=== PATIENT | female | born 1970 | race Caucasian/White ===

== ENCOUNTER 2020-05-28 10:21 | Outpatient (REF) | payer MEDICARE, OTHER, SELFPAY ==
[2020-05-28 13:28] LABS: Hemoglobin 13.1 g/dl (12.0-16.0); Mean Corpuscular HGB Conc 32.8 g/dl (31.0-35.0); Mean Corpuscular Hemoglobin 27.6 pg (27.0-33.0); Mean Corpuscular Volume 84.4 fL (80-98); Mean Platelet Volume 9.4 fL (9.4-12.3); Platelet Count 353 X10*3/uL (160-400); Red Blood Count 4.74 X10*6/uL (4.20-5.50); Red Cell Distribution Width 14.2 % (11.0-16.0); White Blood Count 9.1 X10*3/uL (4.8-10.8)
[2020-05-28 14:10] LABS: Iron 92 mcg/dL (30-160); Percent Iron Saturation 21 % (15-50); Total Iron Binding Capacity 436 mcg/dL (228-428); Unsaturated Iron Binding 344 ug/dL
[2020-05-28 14:27] LABS: Vitamin B12 883 pg/mL (200-900)
== END 2020-05-28 10:22 | disposition home or self-care (01) ==
LOC: HO.WFDLDS 10:21
PROVIDERS: Visit Provider Hospitalist
DX: D50.0 Iron deficiency anemia secondary to blood loss (chronic) (principal)
CPT/HCPCS: 36415; 82607; 82746; 83540; 85027

== ENCOUNTER → 2020-05-29 14:40 | Outpatient (BNVA) | payer MEDICARE, MEDICAID, SELFPAY | PROVIDERS: PCP Family Medicine; Visit Provider Anesthesiology | DX: M47.816 Spondylosis without myelopathy or radiculopathy, lumbar region (principal); G89.4 Chronic pain syndrome; M79.7 Fibromyalgia | CPT/HCPCS: 99214 ==

== ENCOUNTER → 2020-06-03 09:10 | Outpatient (BNVA) | payer MEDICARE, OTHER, SELFPAY | PROVIDERS: PCP Family Medicine; Referring Provider Family Medicine; Visit Provider Internal Medicine Gastroenterology | DX: R10.11 Right upper quadrant pain (principal); K90.9 Intestinal malabsorption, unspecified; R61 Generalized hyperhidrosis; M79.7 Fibromyalgia; G89.4 Chronic pain syndrome; M47.816 Spondylosis without myelopathy or radiculopathy, lumbar region; D50.0 Iron deficiency anemia secondary to blood loss (chronic) | CPT/HCPCS: 99204 ==

== ENCOUNTER 2020-06-04 12:30 | Outpatient (REF) | payer MEDICARE, OTHER, SELFPAY ==
[2020-06-04 14:08] LABS: TSH reflex Free T4 0.87 mIU/mL (0.32-4.0)
[2020-06-05 04:38] LABS: HIV AB/AG Nonreactive (Nonreactive); HIV Num 1 0.07 S/CO (0.00-0.99)
[2020-06-05 19:12] LABS: Immunoglobulin G Subclass 1 422 mg/dL (382-929); Immunoglobulin G Subclass 2 506 mg/dL (241-700); Immunoglobulin G Subclass 3 22 mg/dL (22-178); Immunoglobulin G Subclass 4 19.7 mg/dL (4-86); Immunoglobulin G Total 1028 mg/dL (600-1640)
[2020-06-06 15:22] LABS: IgA 230 mg/dL (47-310); IgG 1056 mg/dL (600-1640); IgM 244 mg/dL (50-300)
[2020-06-06 16:07] LABS: Gliadin Deamidated IgA Ab 8 Units; Gliadin Deamidated IgG Ab 2 Units
[2020-06-06 16:31] LABS: Transglutaminase Ab IgG 2 U/mL; Transglutaminase IgA 1 U/mL
[2020-06-07 15:17] LABS: Anti Nuclear Antibody Pattern Nuclear, Homogeneous; Anti Nuclear Antibody Screen POSITIVE (NEGATIVE)
[2020-06-08 12:12] LABS: Endomysial IgA Antibody Negative (Negative)
[2020-06-10 18:17] LABS: Histamine Plasma <1.5 ng/mL (< OR = 1.8)
== END 2020-06-04 12:31 | disposition home or self-care (01) ==
LOC: HO.LAB 12:30
PROVIDERS: PCP Family Medicine; Visit Provider Internal Medicine Gastroenterology
DX: K90.9 Intestinal malabsorption, unspecified (principal); R10.11 Right upper quadrant pain; R61 Generalized hyperhidrosis; D50.0 Iron deficiency anemia secondary to blood loss (chronic); M79.7 Fibromyalgia; G89.4 Chronic pain syndrome; M47.816 Spondylosis without myelopathy or radiculopathy, lumbar region; R79.82 Elevated C-reactive protein (CRP)
CPT/HCPCS: 36415; 82784; 82785; 83088; 83516; 83520; 84443; 86003; 86038; 86039; 86140; 86255; 86256; 87389

== ENCOUNTER 2020-06-18 08:58 | Outpatient (REF) | payer MEDICARE, OTHER, SELFPAY ==
--- NOTE | 2020-06-18 09:11 | CT_ITS ---
EXAMINATION: CT ABDOMEN AND PELVIS WITH CONTRAST CLINICAL INFORMATION: Generalized hyperhydrosis COMPARISON: None TECHNIQUE: Multidetector volumetric images were obtained from the superior aspect of the liver through the pubic symphysis following administration 85 mL ofOmnipaque 350 intravenous contrast. Sagittal and coronal reformatted images were obtained on the technologist's workstation. Oral contrast: Yes This CT examination was performed using dose optimization techniques as appropriate, variously including the following: *Automated exposure control *Adjustment of mA and/or kV according to patient size (this includes techniques or standardized protocols for targeted exams where dose is matched to indication/reason for exam; i.e. extremities or head) *Use of iterative reconstruction technique DLP: 850 mGy-cm FINDINGS: LUNG BASES: The visualized lung bases are unremarkable. LIVER, GALLBLADDER, AND BILIARY TREE: The liver is normal in size, shape, and attenuation. No focal hepatic lesion or biliary ductal dilatation is present. The gallbladder has been removed. PANCREAS: Unremarkable. SPLEEN: Unremarkable. ADRENAL GLANDS: Unremarkable. KIDNEYS AND URETERS: The kidneys are normal in size, shape, and attenuation. No hydronephrosis, hydroureter, or calculi seen. No perinephric stranding. BLADDER: Not optimally distended. GASTROINTESTINAL TRACT: There are postoperative changes from gastric sleeve procedure. The small and large bowel are unremarkable. The appendix is unremarkable. ABDOMINAL WALL: No significant hernia is appreciated. LYMPH NODES: Normal. VASCULAR: Unremarkable. PELVIC VISCERA: There is an IUD in the uterus in satisfactory position. There is a 3 cm left adnexal cyst. OSSEOUS STRUCTURES: Unremarkable. CT/CT abdomen pelvis w con IMPRESSION: Postsurgical changes from gastric bypass and cholecystectomy. IUD in the uterus. 3 cm left adnexal cyst.
[2020-06-18] MEDS: iohexoL 350 MG/ML 100 ML INFUS..BTL 85 ML IV (12:05)
[2020-06-18] MEDS: Barium Sulfate Oral (Berry) 450 ML ORAL.SUSP 900 ML PO (12:07)
== END 2020-06-18 08:59 | disposition home or self-care (01) ==
LOC: HO.CT 08:58
PROVIDERS: PCP Family Medicine; Visit Provider Internal Medicine Gastroenterology
DX: R61 Generalized hyperhidrosis (principal)
CPT/HCPCS: 74177; Q9967

== ENCOUNTER 2020-06-20 12:40 | Outpatient (RCR) | payer MEDICARE, OTHER, SELFPAY ==
--- NOTE | 2020-06-20 15:06 | MHC.PT.EP ---
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 Assessment reveals mild impaired lumbar and hip ROM, decreased strength, impaired posture, mild gait deviations, hypomobility of thoracic spine, SI joint asymmetries, (+) sacral squish, (+) PAULINA, mild leg length discrepancy, impaired core stability and ability to activate anterior/posterior core musculature, increased tissue tension, and tenderness to palpation w/ PA mobs @ L4-5 and with sacral mobs. Pt will benefit from skilled PT services 2x/week for 5 weeks in order to reduce impairments, improve limitations, and implement a comprehensive HEP. Frequency and Duration: The patient will be seen 2x/week for 5 weeks, minimum of 30 minutes. Short Term Goals: -In 2 weeks, Pt to report less than 5/10 pain throughout treatment session. -In 3 weeks, Pt to demonstrate SI joint symmetry w/o need for MET. Upholstery Parts Sorter Goals: -In 5 weeks, Pt to demonstrate I w/ HEP. -In 5 weeks, Pt to improve JOSE by at least 8 points. -In 5 weeks, Pt to demonstrate absent tenderness to palpation. Treatment Plan: Modalities to reduce pain, spasms and effusion. Manual therapy to restore motion and function. Therapeutic exercise to improve strength and flexibility. Neuromuscular re-education for posture and balance. Therapeutic activities to return to functional activities of daily living. Please sign and return to therapist. Thank you for your referral.
--- NOTE | 2020-07-14 11:59 | MHC.PT.DC ---
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 She had to cancel a few visits awaiting COVID-19 results. She then elected to d/c herself from PT due to rise in pandemic. She will need a new script if she were to return for PT intervention. Electronically signed by: Anne Glasgow PT, DPT Please sign and return to therapist. Thank you for your referral.
== END 2020-07-14 12:00 | disposition other institution (70) ==
LOC: HO.PT 12:40
PROVIDERS: PCP Hospitalist; Visit Provider Anesthesiology
DX: M47.816 Spondylosis without myelopathy or radiculopathy, lumbar region (principal)
CPT/HCPCS: 97140; 97162

== ENCOUNTER 2020-06-23 15:26 | Outpatient (REF) | payer MEDICARE, OTHER, SELFPAY | END 2020-06-23 15:27 | disposition home or self-care (01) | LOC: HO.LNP 15:26 | PROVIDERS: Visit Provider Family Medicine | DX: Z20.828 Contact with and (suspected) exposure to other viral communicable diseases (principal) | CPT/HCPCS: U0003 ==

== ENCOUNTER 2020-07-01 07:32 | Outpatient (REF) | payer MEDICARE, OTHER, SELFPAY ==
[2020-07-01 09:02] LABS: Glucose Fasting 80 mg/dL (60-99)
[2020-07-01 09:04] LABS: Alanine Aminotransferase 19 U/L (0-31); Albumin Level 3.8 g/dL (3.5-5.0); Alkaline Phosphatase 74 U/L (39-117); Anion Gap 15 (12-20); Aspartate Amino Transferase 18 U/L (5-31); Bilirubin Total 0.5 mg/dL (0.0-1.0); Blood Urea Nitrogen 13 mg/dL (9-16); Calcium 8.8 mg/dL (8.4-10.2); Carbon Dioxide 22 mmol/L (22-29); Chloride 105 mmol/L (96-108); Cholesterol 198 mg/dL; Estimated Average Glucose 126 mg/dL; Estimated Glomerular Filt Rate > 60; Glucose Random 76 mg/dL (60-115); HDL Cholesterol 87 mg/dL; LDL Cholesterol Calculated 97 mg/dl; Potassium 4.2 mmol/l (3.3-5.1); Sodium 138 mmol/L (135-145); Total Protein 6.8 g/dL (6.5-8.0); Triglycerides 73 mg/dL
[2020-07-01 09:24] LABS: Free T4 (Free Thyroxine) 1.01 ng/dL (0.71-1.85); Thyroid Stimulating Hormone 0.63 uIU/mL (0.32-4.0)
[2020-07-01 10:46] LABS: Glucose 1 Hour 186 mg/dL
[2020-07-01 11:27] LABS: Glucose 2 Hour 43 mg/dL
[2020-07-02 08:57] LABS: Lutenizing Hormone 8.9 mIU/mL; Prolactin 13.5 ng/mL
[2020-07-02 09:16] LABS: LDL Cholesterol Direct 91 mg/dL (<100)
[2020-07-02 18:17] LABS: DHEA Sulfate 4 mcg/dL (19-231); Sex Hormone Binding Globulin 80 nmol/L (17-124)
[2020-07-02 22:32] LABS: Adrenocorticotropic Hormone 13 pg/mL (6-50)
[2020-07-05 14:37] LABS: Testosterone, Free 1.6 pg/mL (0.1-6.4); Testosterone, Total 20 ng/dL (2-45)
[2020-07-05 18:06] LABS: Androstenedione 47 ng/dL
[2020-07-05 19:17] LABS: Estradiol Ultra Sensitive 199 pg/mL
[2020-07-09 23:21] LABS: Estradiol Free 2.64 pg/mL; Estradiol, Ultrasensitive 188 pg/mL
[2020-07-14 20:09] LABS: Calprotectin, Fecal 102 mcg/g
[2020-07-15 17:12] LABS: Pancreatic Elastase-1 197 mcg/g
== END 2020-07-01 07:33 | disposition home or self-care (01) ==
LOC: HO.LAB 07:32
PROVIDERS: Internal Medicine Gastroenterology; PCP Family Medicine; Visit Provider Internal Medicine
DX: Z13.89 Encounter for screening for other disorder (principal)
CPT/HCPCS: 80053; 80061; 82024; 82157; 82533; 82627; 82670; 83001; 83002; 83036; 83498; 83721; 84146; 84270; 84402; 84403; 84439; 84443

== ENCOUNTER 2020-07-01 10:49 | Emergency (ER) | payer MEDICARE, OTHER, SELFPAY ==
[2020-07-01 11:02] VITALS: BP 141/81; PULSE 69; RESP 18; TEMP 36.6; O2SAT 99; BMI 46.9
--- NOTE | 2020-07-01 11:11 | ED_ITS ---
HPI - General Adult General Chief complaint: General Medical <TESS Guerra - Last Filed: 07/01/20 17:16> Stated complaint: ABNORMAL LABS, DIFF BREATHING <TESS Guerra - Last Filed: 07/01/20 17:16> Time Seen by Provider: 07/01/20 11:25 <TESS Guerra - Last Filed: 07/01/20 17:16> Source: patient <TESS Guerra - Last Filed: 07/01/20 17:16> Mode of arrival: ambulatory <TESS Guerra - Last Filed: 07/01/20 17:16> Limitations: no limitations <TESS Guerra Last Filed: 07/01/20 17:16> History of Present Illness HPI narrative: Patient presents to ED for multiple complaints. Patient states feeling diuretic and shortness of breath. Patient was had laboratory being checked for diabetes. Patient to get a 2 hour fasting glucose. patient does not have history of diabetes. Patient states she did not eat breakfast or drink water this morning. Patient then after having multiple blood draws she started feeling diaphoretic and shortness of breath.Patient states presently just feeling tired and short of breath. Patient denies any slurred speech, loss of vision, paralysis, swelling of lower extremities, numbness,/tingling, facial droop, or chest pain. <TESS Guerra - Last Filed: 07/01/20 17:16> Related Data Home medications: Home Medications Medication Instructions Recorded Confirmed albuterol sulfate 90 mcg/actuation 0 mcg INHALATION 05/28/20 06/25/20 aerosol inhaler bupropion HCl 100 mg tablet,12 hr mg PO 05/28/20 06/25/20 sustained-release cholecalciferol (vitamin D3) 125 0 mcg PO 05/28/20 06/25/20 mcg (5,000 unit) capsule hydroxyzine pamoate 50 mg capsule 50 mg PO Q6H PRN 05/28/20 06/25/20 ipratropium 0.5 mg-albuterol 3 mg 3 ml INHALATION QID 05/28/20 06/25/20 (2.5 mg base)/3 mL nebulization soln lorazepam 0.5 mg tablet 0.5 mg PO TID PRN 05/28/20 06/25/20 metoclopramide HCl 5 mg tablet 5 mg PO DAILY 05/28/20 06/25/20 pregabalin 25 mg capsule 25 mg PO TID 05/28/20 06/25/20 quetiapine 25 mg tablet 50 mg PO ONCE tab 05/28/20 06/25/20 sertraline 100 mg tablet 100 mg PO DAILY 05/28/20 06/25/20 sertraline 50 mg tablet 50 mg PO DAILY 05/28/20 06/25/20 simethicone 125 mg capsule 125 mg PO QID PRN 05/28/20 06/25/20 tizanidine 4 mg tablet 4 mg PO Q6H PRN 05/28/20 06/25/20 fluticasone propionate 230 INHALATION 05/29/20 06/25/20 mcg-salmeterol 21 mcg/actuation HFA inhaler pantoprazole 40 mg tablet,delayed 40 mg PO DAILY 05/29/20 06/25/20 release fluticasone propionate 230 2 puff INHALATION BID 06/09/20 06/25/20 mcg-salmeterol 21 mcg/actuation HFA inhaler Previous Rx's Medication Instructions Recorded fluticasone propionate 50 1 spray INTRANASAL BID 30 Days 06/23/20 mcg/actuation nasal #15.8 ml spray,suspension prednisone 10 mg tablet See Rx Instructions PO DAILY PRN 06/23/20 10 Days #28 tab zolpidem 10 mg tablet 10 mg PO BEDTIME PRN 30 Days #10 06/25/20 tab <TESS Guerra - Last Filed: 07/01/20 17:16> Allergies/adverse reactions: Allergies Allergy/AdvReac Type Severity Reaction Status Date / Time NSAIDS (Non-Steroidal Allergy Severe DIFFICULTY Verified 06/30/20 10:53 Anti-Inflamma BREATHING [Nsaids] amitriptyline Allergy Unknown undesired Verified 06/30/20 10:53 response naproxen Allergy Unknown shortness Verified 06/30/20 10:53 of breath risperidone [Risperdal] Allergy Unknown undesired Verified 06/30/20 10:53 response topiramate [Topamax] Allergy Unknown undesired Verified 06/30/20 10:53 response <TESS Guerra - Last Filed: 07/01/20 17:16> Review of Systems Review of Systems: Yes all other systems are reviewed and are negative <TESS Guerra - Last Filed: 07/01/20 17:16> Constitutional: Constitutional: Reports as per HPI, Reports no additional constitutional complaints and Reports fatigue <TESS Guerra - Last Filed: 07/01/20 17:16> Eyes: Eyes: Reports as per HPI and Reports no additional eye complaints <TESS Guerra - Last Filed: 07/01/20 17:16> ENT: Reports system reviewed and no additional complaints, except as documented and Reports as per HPI <TESS Guerra - Last Filed: 07/01/20 17:16> Cardiovascular: Cardiovascular: Reports as per HPI, Reports no additional cardiovascular complaints and Reports dyspnea <TESS Guerra - Last Filed: 07/01/20 17:16> Respiratory: Respiratory: Reports as per HPI, Reports no additional respiratory complaints and Reports dyspnea <TESS Guerra - Last Filed: 07/01/20 17:16> Gastrointestinal: Gastrointestinal: Reports as per HPI and Reports no additional gastrointestinal complaints <TESS Guerra Last Filed: 07/01/20 17:16> Genitourinary: Genitourinary: Reports no additional female genitourinary complaints and Reports as per HPI <TESS Guerra Last Filed: 07/01/20 17:16> Musculoskeletal: Musculoskeletal: Reports no additional musculoskeletal complaints and Reports as per HPI <TESS Guerra Last Filed: 07/01/20 17:16> Neurologic: Reports system reviewed and no additional complaints, except as documented and Reports as per HPI <TESS Guerra Last Filed: 07/01/20 17:16> Endocrine: Endocrine: Reports fatigue <TESS Guerra Last Filed: 07/01/20 17:16> PMF Past Medical History Medical History: Medical History (Updated 07/01/20 @ 17:14 by TESS Guerra) Anxiety Asthma Chronic pain syndrome Depression Fibromyalgia GERD (gastroesophageal reflux disease) Hirsutism Irregular menses PTSD (post-traumatic stress disorder) Spondylosis of lumbar region without myelopathy or radiculopathy Weight gain <TESS Guerra Last Filed: 07/01/20 17:16> Surgical History: Surgical History (Updated 07/01/20 @ 11:06 by Khadra Sanders) Gastric bypass status for obesity H/O shoulder surgery H/O wrist surgery History of colonoscopy History of hernia surgery Hx of cholecystectomy Hx of endoscopy <TESS Guerra - Last Filed: 07/01/20 17:16> Family History Family History: Family History Father No problems noted. Mother History of high blood pressure History of asthma <TESS Guerra - Last Filed: 07/01/20 17:16> Social History Social History: Social History Alcohol intake: never Smoking Status: Never smoker Use of substances other than those prescribed or required for medical reasons: No Advance Directives: No Advance Directives Information Provided: Yes <TESS Guerra - Last Filed: 07/01/20 17:16> Physical Exam Vital Signs: Vital Signs: Last Vital Signs Temp 98.0 F 07/01/20 16:00 Pulse 77 07/01/20 16:00 Resp 18 07/01/20 16:00 BP 131/62 07/01/20 16:00 Pulse Ox 100 07/01/20 16:00 Body Mass Index 46.9 <TESS Guerra - Last Filed: 07/01/20 17:16> Vital Signs: Last Vital Signs Temp 98.0 F 07/01/20 16:00 Pulse 77 07/01/20 16:00 Resp 18 07/01/20 16:00 BP 131/62 07/01/20 16:00 Pulse Ox 100 07/01/20 16:00 Body Mass Index 46.9 <Gato Galaviz MD - Last Filed: 07/01/20 16:09> Const: General: cooperative, healthy appearing, comfortable, no acute distress, well developed and alert <TESS Guerra - Last Filed: 07/01/20 17:16> HENMT: Head: Yes normal to inspection and Yes No palpable skull fracture present <TESS Guerra - Last Filed: 07/01/20 17:16> Eyes: General: appearance normal, both eyes and all related structures <TESS Guerra - Last Filed: 07/01/20 17:16> Visual Agee: normal visual agee by confrontation <TESS Guerra Last Filed: 07/01/20 17:16> Neck: Neck: Yes normal visual inspection, Yes full ROM, Yes no lymphadenopathy, Yes no meningeal signs, Yes trachea midline and No tender <TESS Guerra Last Filed: 07/01/20 17:16> Chest: Chest palpation & inspection: normal inspection of the chest, normal palpation of entire chest wall and no localized rib tenderness <Soham Torre [employer] [facility] Last Filed: 07/01/20 17:16> Resp: Effort & Inspection: normal respiratory effort, able to speak in complete sentences and respiratory effort not decreased <TESS Guerra Last Filed: 07/01/20 17:16> Cardio: Jugular venous distension: no JVD <TESS Guerra Last Filed: 07/01/20 17:16> Heart sounds: S1 normal heart sound present and S2 normal heart sound present <TESS Guerra Last Filed: 07/01/20 17:16> GI: Inspection: Yes normal to inspection and No abdominal wall ecchymosis <TESS Guerra Last Filed: 07/01/20 17:16> Palpation (GI): Soft to palpation, not firm, nontender, no guarding and not rigid <TESS Guerra Last Filed: 07/01/20 17:16> : General: No CVA tenderness and Yes no CVA tenderness <TESS Guerra Last Filed: 07/01/20 17:16> Back/Spine/Pelvis: Back: no CVA tenderness, No CVA tenderness and No back tenderness <TESS Guerra Last Filed: 07/01/20 17:16> Skin: General skin exam: no rashes or lesions noted <TESS Guerra Last Filed: 07/01/20 17:16> Neuro: Other: negative for any facial droop. Negative pronator drift. Negative Romberg. Motor, and strength of all extremities are intact and equal. <TESS Guerra Last Filed: 07/01/20 17:16> General: gait normal, no meningeal signs and CN's II-XI intact bilaterally <TESS Guerra - Last Filed: 07/01/20 17:16> Cranial nerves: Yes CN's II-XII intact bilaterally <TESS Guerra - Last Filed: 07/01/20 17:16> Extrem: General: Yes normal to inspection and Yes full ROM <TESS Guerra - Last Filed: 07/01/20 17:16> Psych: Appearance: grossly normal, well kempt and not disheveled <TESS Guerra - Last Filed: 07/01/20 17:16> Course Course Course Narrative: Initial fingerstick glucose was 60. Patient hyporglycemic. Patient given orange juice and D5 normal saline. Patient also have rest of basic labs, chest x-ray, EKG, troponin D-dimer due to patient stating shortness of breath. Other very unlikely she is presenting with those cases. Patient also will have chest x-ray. <TESS Guerra - Last Filed: 07/01/20 17:16> I have discussed the case and management with the GILMAR <Gato Galaviz MD - Last Filed: 07/01/20 16:09> Reevaluation(s) Reevaluation #1: White blood cell count is 18,000. May be due to patient being on prednisone, but source of infection will be investigated. Patient will have lactate, blood culture, and COVID swab sent. Patient had chest CT abdominal CT to rule out any source of infection. Also urinalysis will be done. Negative for any headache or neck tenderness to indicate meningitis. <TESS Guerra - Last Filed: 07/01/20 17:16> Time: 13:22 <TESS Guerra - Last Filed: 07/01/20 17:16> Reevaluation #2: Presently there is no source of infection. Patient is not in SIRS criteria. Most likely patient has elevated white blood cell count due to chronic steroid use. Patient presently not having any chest pain or shortness of breath. Will do repeat troponin. Patient hypoglycemia resolved after eating food. 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 <TESS Guerra - Last Filed: 07/01/20 17:16> Time: 17:04 <TESS Guerra Last Filed: 07/01/20 17:16> Reevaluation #3: Case signed out to TESS Graham to follow up troponin. Patient's symptoms was most likely due to hypoglycemia. D-diimder is negative. Perc score 0. <TESS Guerra - Last Filed: 07/01/20 17:16> Time: 17:08 <TESS Guerra - Last Filed: 07/01/20 17:16> Medical Decision Making MDM Narrative Medical decision making narrative: hypoglycemia due to not eating <TESS Guerra - Last Filed: 07/01/20 17:16> Lab Data Result diagrams: : 07/01/20 11:36 07/01/20 11:36 <TESS Guerra - Last Filed: 07/01/20 17:16> Labs: Lab Results 07/01/20 07/01/20 07/01/20 Range/Units 11:23 11:36 11:36 WBC 18.4 H (4.8-10.8) X10*3/uL RBC 4.48 (4.20-5.50) X10*6/uL Hgb 11.8 L (12.0-16.0) g/dl Hct 36.0 L (37-47) % MCV 80.4 (80-98) fL MCH 26.3 L (27.0-33.0) pg MCHC 32.8 (31.0-35.0) g/dl RDW 13.9 (11.0-16.0) % Plt Count 431 H (160-400) X10*3/uL MPV 8.8 L (9.4-12.3) fL Immature Gran % (Auto) Cancelled Neut % (Auto) Cancelled Lymph % (Auto) Cancelled Irion % (Auto) Cancelled Eos % (Auto) Cancelled Baso % (Auto) Cancelled Lymph # (Auto) Cancelled [place]ion # (Auto) Cancelled Eos # (Auto) Cancelled Baso # (Auto) Cancelled Abs Immat Gran (auto) Cancelled Absolute Neuts (auto) Cancelled Absolute Nucleated RBC 0.000 (0.0-0.012) X10*3/uL Nucleated RBC % (auto) 0.0 (0.0-0.2) /100WBC Neutrophils % (Manual) 55 (45-73) % Band Neutrophils % 0 L (3-5) % Lymphocytes % (Manual) 32 (20-40) % Atypical Lymphs % (Man) 7 H (0-6) % Monocytes % (Manual) 4 (2-11) % Basophils % (Manual) 2 H (0-1) % Abs Neuts (Manual) 10.1 H (2.2-7.9) X10*3/uL Lymphocytes # (Manual) 5.9 H (0.6-4.8) X10*3/uL Atyp Lymphs # (Manual) 1.3 x10*3/uL Monocytes # (Manual) 0.7 (0.0-1.2) X10*3/uL Basophils # (Manual) 0.4 H (0.0-0.3) X10*3/uL Smudge Cells PRESENT Platelet Estimate SLIGHTLY INCREASED (NORMAL) Plt Morphology Comment NORM RBC Morphology NORMAL Smear Tech's Comments MANUAL DIFF PT 11.2 (10.8-13.0) SEC INR 0.9 (0.9-1.1) APTT 31.7 (24.1-38.0) SEC D-Dimer < 200 NG/ML Sodium (135-145) mmol/L Potassium (3.3-5.1) mmol/l Chloride (96-108) mmol/L Carbon Dioxide (22-29) mmol/L Anion Gap (12-20) BUN (9-16) mg/dL Creatinine (0.5-1.4) mg/dL Estim Creat Clear Calc Estimated GFR POC Glucose 60 (60-115) mg/dL Random Glucose (60-115) mg/dL Lactic Acid (0.5-2.0) mmol/L Calcium (8.4-10.2) mg/dL Ferritin (10-250) ng/mL Total Bilirubin (0.0-1.0) mg/dL AST (5-31) U/L ALT (0-31) U/L Alkaline Phosphatase (39-117) U/L Lactate Dehydrogenase (122-220) U/L Troponin I High Sens (<3.5-17.0) ng/L Total Protein (6.5-8.0) g/dL Albumin (3.5-5.0) g/dL Procalcitonin ng/mL Beta HCG, Quant mIU/mL Urine Color Urine Appearance Urine pH (5.0-8.0) Ur Specific [place] (1.005-1.025) Urine Protein (NEG-TRACE) MG/DL Urine Glucose (UA) (NEG) MG/DL Urine Ketones (NEG) MG/DL Urine Blood (NEG) Urine Nitrite (NEG) Ur Leukocyte Esterase (NEG) Coronavirus (PCR) Influenza Type A (PCR) Influenza Type B (PCR) RSV RNA Qual (PCR) 07/01/20 07/01/20 07/01/20 Range/Units 11:36 11:36 11:36 WBC (4.8-10.8) X10*3/uL RBC (4.20-5.50) X10*6/uL Hgb (12.0-16.0) g/dl Hct (37-47) % MCV (80-98) fL MCH (27.0-33.0) pg MCHC (31.0-35.0) g/dl RDW (11.0-16.0) % Plt Count (160-400) X10*3/uL MPV (9.4-12.3) fL Immature Gran % (Auto) Neut % (Auto) Lymph % (Auto) Irion % (Auto) Eos % (Auto) Baso % (Auto) Lymph # (Auto) [place] # (Auto) Eos # (Auto) Baso # (Auto) Abs Immat Gran (auto) Absolute Neuts (auto) Absolute Nucleated RBC (0.0-0.012) X10*3/uL Nucleated RBC % (auto) (0.0-0.2) /100WBC Neutrophils % (Manual) (45-73) % Band Neutrophils % (3-5) % Lymphocytes % (Manual) (20-40) % Atypical Lymphs % (Man) (0-6) % Monocytes % (Manual) (2-11) % Basophils % (Manual) (0-1) % Abs Neuts (Manual) (2.2-7.9) X10*3/uL Lymphocytes # (Manual) (0.6-4.8) X10*3/uL Atyp Lymphs # (Manual) x10*3/uL Monocytes # (Manual) (0.0-1.2) X10*3/uL Basophils # (Manual) (0.0-0.3) X10*3/uL Smudge Cells Platelet Estimate (NORMAL) Plt Morphology Comment RBC Morphology Smear Tech's Comments PT (10.8-13.0) SEC INR (0.9-1.1) APTT (24.1-38.0) SEC D-Dimer NG/ML Sodium 137 (135-145) mmol/L Potassium 3.6 (3.3-5.1) mmol/l Chloride 105 (96-108) mmol/L Carbon Dioxide 21 L (22-29) mmol/L Anion Gap 15 (12-20) BUN 13 (9-16) mg/dL Creatinine 0.71 (0.5-1.4) mg/dL Estim Creat Clear Calc 121.6 Estimated GFR > 60 POC Glucose (60-115) mg/dL Random Glucose 58 L* (60-115) mg/dL Lactic Acid (0.5-2.0) mmol/L Calcium 8.5 (8.4-10.2) mg/dL Ferritin 11 (10-250) ng/mL Total Bilirubin 0.5 (0.0-1.0) mg/dL AST 20 (5-31) U/L ALT 18 (0-31) U/L Alkaline Phosphatase 70 (39-117) U/L Lactate Dehydrogenase 180 (122-220) U/L Troponin I High Sens < 3.5 (<3.5-17.0) ng/L Total Protein 6.4 L (6.5-8.0) g/dL Albumin 3.6 (3.5-5.0) g/dL Procalcitonin < 0.02 ng/mL Beta HCG, Quant mIU/mL Urine Color Urine Appearance Urine pH (5.0-8.0) Ur Specific [place] (1.005-1.025) Urine Protein (NEG-TRACE) MG/DL Urine Glucose (UA) (NEG) MG/DL Urine Ketones (NEG) MG/DL Urine Blood (NEG) Urine Nitrite (NEG) Ur Leukocyte Esterase (NEG) Coronavirus (PCR) Influenza Type A (PCR) Influenza Type B (PCR) RSV RNA Qual (PCR) 07/01/20 07/01/20 07/01/20 Range/Units 11:36 11:44 13:27 WBC (4.8-10.8) X10*3/uL RBC (4.20-5.50) X10*6/uL Hgb (12.0-16.0) g/dl Hct (37-47) % MCV (80-98) fL MCH (27.0-33.0) pg MCHC (31.0-35.0) g/dl RDW (11.0-16.0) % Plt Count (160-400) X10*3/uL MPV (9.4-12.3) fL Immature Gran % (Auto) Neut % (Auto) Lymph % (Auto) Irion % (Auto) Eos % (Auto) Baso % (Auto) Lymph # (Auto) [place] # (Auto) Eos # (Auto) Baso # (Auto) Abs Immat Gran (auto) Absolute Neuts (auto) Absolute Nucleated RBC (0.0-0.012) X10*3/uL Nucleated RBC % (auto) (0.0-0.2) /100WBC Neutrophils % (Manual) (45-73) % Band Neutrophils % (3-5) % Lymphocytes % (Manual) (20-40) % Atypical Lymphs % (Man) (0-6) % Monocytes % (Manual) (2-11) % Basophils % (Manual) (0-1) % Abs Neuts (Manual) (2.2-7.9) X10*3/uL Lymphocytes # (Manual) (0.6-4.8) X10*3/uL Atyp Lymphs # (Manual) x10*3/uL Monocytes # (Manual) (0.0-1.2) X10*3/uL Basophils # (Manual) (0.0-0.3) X10*3/uL Smudge Cells Platelet Estimate (NORMAL) Plt Morphology Comment RBC Morphology Smear Tech's Comments PT (10.8-13.0) SEC INR (0.9-1.1) APTT (24.1-38.0) SEC D-Dimer NG/ML Sodium (135-145) mmol/L Potassium (3.3-5.1) mmol/l Chloride (96-108) mmol/L Carbon Dioxide (22-29) mmol/L Anion Gap (12-20) BUN (9-16) mg/dL Creatinine (0.5-1.4) mg/dL Estim Creat Clear Calc Estimated GFR POC Glucose 121 H (60-115) mg/dL Random Glucose (60-115) mg/dL Lactic Acid (0.5-2.0) mmol/L Calcium (8.4-10.2) mg/dL Ferritin (10-250) ng/mL Total Bilirubin (0.0-1.0) mg/dL AST (5-31) U/L ALT (0-31) U/L Alkaline Phosphatase (39-117) U/L Lactate Dehydrogenase (122-220) U/L Troponin I High Sens (<3.5-17.0) ng/L Total Protein (6.5-8.0) g/dL Albumin (3.5-5.0) g/dL Procalcitonin ng/mL Beta HCG, Quant < 2 mIU/mL Urine Color Urine Appearance Urine pH (5.0-8.0) Ur Specific [place] (1.005-1.025) Urine Protein (NEG-TRACE) MG/DL Urine Glucose (UA) (NEG) MG/DL Urine Ketones (NEG) MG/DL Urine Blood (NEG) Urine Nitrite (NEG) Ur Leukocyte Esterase (NEG) Coronavirus (PCR) Cancelled Influenza Type A (PCR) Cancelled Influenza Type B (PCR) Cancelled RSV RNA Qual (PCR) Cancelled 07/01/20 07/01/20 07/01/20 Range/Units 13:27 13:35 14:05 WBC (4.8-10.8) X10*3/uL RBC (4.20-5.50) X10*6/uL Hgb (12.0-16.0) g/dl Hct (37-47) % MCV (80-98) fL MCH (27.0-33.0) pg MCHC (31.0-35.0) g/dl RDW (11.0-16.0) % Plt Count (160-400) X10*3/uL MPV (9.4-12.3) fL Immature Gran % (Auto) Neut % (Auto) Lymph % (Auto) [place] % (Auto) Eos % (Auto) Baso % (Auto) Lymph # (Auto) [place] # (Auto) Eos # (Auto) Baso # (Auto) Abs Immat Gran (auto) Absolute Neuts (auto) Absolute Nucleated RBC (0.0-0.012) X10*3/uL Nucleated RBC % (auto) (0.0-0.2) /100WBC Neutrophils % (Manual) (45-73) % Band Neutrophils % (3-5) % Lymphocytes % (Manual) (20-40) % Atypical Lymphs % (Man) (0-6) % Monocytes % (Manual) (2-11) % Basophils % (Manual) (0-1) % Abs Neuts (Manual) (2.2-7.9) X10*3/uL Lymphocytes # (Manual) (0.6-4.8) X10*3/uL Atyp Lymphs # (Manual) x10*3/uL Monocytes # (Manual) (0.0-1.2) X10*3/uL Basophils # (Manual) (0.0-0.3) X10*3/uL Smudge Cells Platelet Estimate (NORMAL) Plt Morphology Comment RBC Morphology Smear Tech's Comments PT (10.8-13.0) SEC INR (0.9-1.1) APTT (24.1-38.0) SEC D-Dimer NG/ML Sodium (135-145) mmol/L Potassium (3.3-5.1) mmol/l Chloride (96-108) mmol/L Carbon Dioxide (22-29) mmol/L Anion Gap (12-20) BUN (9-16) mg/dL Creatinine (0.5-1.4) mg/dL Estim Creat Clear Calc Estimated GFR POC Glucose 75 (60-115) mg/dL Random Glucose (60-115) mg/dL Lactic Acid 1.0 (0.5-2.0) mmol/L Calcium (8.4-10.2) mg/dL Ferritin (10-250) ng/mL Total Bilirubin (0.0-1.0) mg/dL AST (5-31) U/L ALT (0-31) U/L Alkaline Phosphatase (39-117) U/L Lactate Dehydrogenase (122-220) U/L Troponin I High Sens (<3.5-17.0) ng/L Total Protein (6.5-8.0) g/dL Albumin (3.5-5.0) g/dL Procalcitonin ng/mL Beta HCG, Quant mIU/mL Urine Color YELLOW Urine Appearance CLEAR Urine pH 6.5 (5.0-8.0) Ur Specific [place] 1.010 (1.005-1.025) Urine Protein NEG (NEG-TRACE) MG/DL Urine Glucose (UA) NEG (NEG) MG/DL Urine Ketones NEG (NEG) MG/DL Urine Blood NEG (NEG) Urine Nitrite NEG (NEG) Ur Leukocyte Esterase NEG (NEG) Coronavirus (PCR) Influenza Type A (PCR) Influenza Type B (PCR) RSV RNA Qual (PCR) 07/01/20 07/01/20 Range/Units 15:27 16:18 WBC (4.8-10.8) X10*3/uL RBC (4.20-5.50) X10*6/uL Hgb (12.0-16.0) g/dl Hct (37-47) % MCV (80-98) fL MCH (27.0-33.0) pg MCHC (31.0-35.0) g/dl RDW (11.0-16.0) % Plt Count (160-400) X10*3/uL MPV (9.4-12.3) fL Immature Gran % (Auto) Neut % (Auto) Lymph % (Auto) [place] % (Auto) Eos % (Auto) Baso % (Auto) Lymph # (Auto) [place] # (Auto) Eos # (Auto) Baso # (Auto) Abs Immat Gran (auto) Absolute Neuts (auto) Absolute Nucleated RBC (0.0-0.012) X10*3/uL Nucleated RBC % (auto) (0.0-0.2) /100WBC Neutrophils % (Manual) (45-73) % Band Neutrophils % (3-5) % Lymphocytes % (Manual) (20-40) % Atypical Lymphs % (Man) (0-6) % Monocytes % (Manual) (2-11) % Basophils % (Manual) (0-1) % Abs Neuts (Manual) (2.2-7.9) X10*3/uL Lymphocytes # (Manual) (0.6-4.8) X10*3/uL Atyp Lymphs # (Manual) x10*3/uL Monocytes # (Manual) (0.0-1.2) X10*3/uL Basophils # (Manual) (0.0-0.3) X10*3/uL Smudge Cells Platelet Estimate (NORMAL) Plt Morphology Comment RBC Morphology Smear Tech's Comments PT (10.8-13.0) SEC INR (0.9-1.1) APTT (24.1-38.0) SEC D-Dimer NG/ML Sodium (135-145) mmol/L Potassium (3.3-5.1) mmol/l Chloride (96-108) mmol/L Carbon Dioxide (22-29) mmol/L Anion Gap (12-20) BUN (9-16) mg/dL Creatinine (0.5-1.4) mg/dL Estim Creat Clear Calc Estimated GFR POC Glucose 67 105 (60-115) mg/dL Random Glucose (60-115) mg/dL Lactic Acid (0.5-2.0) mmol/L Calcium (8.4-10.2) mg/dL Ferritin (10-250) ng/mL Total Bilirubin (0.0-1.0) mg/dL AST (5-31) U/L ALT (0-31) U/L Alkaline Phosphatase (39-117) U/L Lactate Dehydrogenase (122-220) U/L Troponin I High Sens (<3.5-17.0) ng/L Total Protein (6.5-8.0) g/dL Albumin (3.5-5.0) g/dL Procalcitonin ng/mL Beta HCG, Quant mIU/mL Urine Color Urine Appearance Urine pH (5.0-8.0) Ur Specific [place] (1.005-1.025) Urine Protein (NEG-TRACE) MG/DL Urine Glucose (UA) (NEG) MG/DL Urine Ketones (NEG) MG/DL Urine Blood (NEG) Urine Nitrite (NEG) Ur Leukocyte Esterase (NEG) Coronavirus (PCR) Influenza Type A (PCR) Influenza Type B (PCR) RSV RNA Qual (PCR) <TESS Guerra - Last Filed: 07/01/20 17:16> Lab Results 07/01/20 07/01/20 07/01/20 Range/Units 11:23 11:36 11:36 WBC 18.4 H (4.8-10.8) X10*3/uL RBC 4.48 (4.20-5.50) X10*6/uL Hgb 11.8 L (12.0-16.0) g/dl Hct 36.0 L (37-47) % MCV 80.4 (80-98) fL MCH 26.3 L (27.0-33.0) pg MCHC 32.8 (31.0-35.0) g/dl RDW 13.9 (11.0-16.0) % Plt Count 431 H (160-400) X10*3/uL MPV 8.8 L (9.4-12.3) fL Immature Gran % (Auto) Cancelled Neut % (Auto) Cancelled Lymph % (Auto) Cancelled [place] % (Auto) Cancelled Eos % (Auto) Cancelled Baso % (Auto) Cancelled Lymph # (Auto) Cancelled [place] # (Auto) Cancelled Eos # (Auto) Cancelled Baso # (Auto) Cancelled Abs Immat Gran (auto) Cancelled Absolute Neuts (auto) Cancelled Absolute Nucleated RBC 0.000 (0.0-0.012) X10*3/uL Nucleated RBC % (auto) 0.0 (0.0-0.2) /100WBC Neutrophils % (Manual) 55 (45-73) % Band Neutrophils % 0 L (3-5) % Lymphocytes % (Manual) 32 (20-40) % Atypical Lymphs % (Man) 7 H (0-6) % Monocytes % (Manual) 4 (2-11) % Basophils % (Manual) 2 H (0-1) % Abs Neuts (Manual) 10.1 H (2.2-7.9) X10*3/uL Lymphocytes # (Manual) 5.9 H (0.6-4.8) X10*3/uL Atyp Lymphs # (Manual) 1.3 x10*3/uL Monocytes # (Manual) 0.7 (0.0-1.2) X10*3/uL Basophils # (Manual) 0.4 H (0.0-0.3) X10*3/uL Smudge Cells PRESENT Platelet Estimate SLIGHTLY INCREASED (NORMAL) Plt Morphology Comment NORM RBC Morphology NORMAL Smear Tech's Comments MANUAL DIFF PT 11.2 (10.8-13.0) SEC INR 0.9 (0.9-1.1) APTT 31.7 (24.1-38.0) SEC D-Dimer < 200 NG/ML Sodium (135-145) mmol/L Potassium (3.3-5.1) mmol/l Chloride (96-108) mmol/L Carbon Dioxide (22-29) mmol/L Anion Gap (12-20) BUN (9-16) mg/dL Creatinine (0.5-1.4) mg/dL Estim Creat Clear Calc Estimated GFR POC Glucose 60 (60-115) mg/dL Random Glucose (60-115) mg/dL Lactic Acid (0.5-2.0) mmol/L Calcium (8.4-10.2) mg/dL Ferritin (10-250) ng/mL Total Bilirubin (0.0-1.0) mg/dL AST (5-31) U/L ALT (0-31) U/L Alkaline Phosphatase (39-117) U/L Lactate Dehydrogenase (122-220) U/L Troponin I High Sens (<3.5-17.0) ng/L Total Protein (6.5-8.0) g/dL Albumin (3.5-5.0) g/dL Procalcitonin ng/mL Beta HCG, Quant mIU/mL Urine Color Urine Appearance Urine pH (5.0-8.0) Ur Specific [place] (1.005-1.025) Urine Protein (NEG-TRACE) MG/DL Urine Glucose (UA) (NEG) MG/DL Urine Ketones (NEG) MG/DL Urine Blood (NEG) Urine Nitrite (NEG) Ur Leukocyte Esterase (NEG) Coronavirus (PCR) Influenza Type A (PCR) Influenza Type B (PCR) RSV RNA Qual (PCR) 07/01/20 07/01/20 07/01/20 Range/Units 11:36 11:36 11:36 WBC (4.8-10.8) X10*3/uL RBC (4.20-5.50) X10*6/uL Hgb (12.0-16.0) g/dl Hct (37-47) % MCV (80-98) fL MCH (27.0-33.0) pg MCHC (31.0-35.0) g/dl RDW (11.0-16.0) % Plt Count (160-400) X10*3/uL MPV (9.4-12.3) fL Immature Gran % (Auto) Neut % (Auto) Lymph % (Auto) [place]ion % (Auto) Eos % (Auto) Baso % (Auto) Lymph # (Auto) [place] # (Auto) Eos # (Auto) Baso # (Auto) Abs Immat Gran (auto) Absolute Neuts (auto) Absolute Nucleated RBC (0.0-0.012) X10*3/uL Nucleated RBC % (auto) (0.0-0.2) /100WBC Neutrophils % (Manual) (45-73) % Band Neutrophils % (3-5) % Lymphocytes % (Manual) (20-40) % Atypical Lymphs % (Man) (0-6) % Monocytes % (Manual) (2-11) % Basophils % (Manual) (0-1) % Abs Neuts (Manual) (2.2-7.9) X10*3/uL Lymphocytes # (Manual) (0.6-4.8) X10*3/uL Atyp Lymphs # (Manual) x10*3/uL Monocytes # (Manual) (0.0-1.2) X10*3/uL Basophils # (Manual) (0.0-0.3) X10*3/uL Smudge Cells Platelet Estimate (NORMAL) Plt Morphology Comment RBC Morphology Smear Tech's Comments PT (10.8-13.0) SEC INR (0.9-1.1) APTT (24.1-38.0) SEC D-Dimer NG/ML Sodium 137 (135-145) mmol/L Potassium 3.6 (3.3-5.1) mmol/l Chloride 105 (96-108) mmol/L Carbon Dioxide 21 L (22-29) mmol/L Anion Gap 15 (12-20) BUN 13 (9-16) mg/dL Creatinine 0.71 (0.5-1.4) mg/dL Estim Creat Clear Calc 121.6 Estimated GFR > 60 POC Glucose (60-115) mg/dL Random Glucose 58 L* (60-115) mg/dL Lactic Acid (0.5-2.0) mmol/L Calcium 8.5 (8.4-10.2) mg/dL Ferritin 11 (10-250) ng/mL Total Bilirubin 0.5 (0.0-1.0) mg/dL AST 20 (5-31) U/L ALT 18 (0-31) U/L Alkaline Phosphatase 70 (39-117) U/L Lactate Dehydrogenase 180 (122-220) U/L Troponin I High Sens < 3.5 (<3.5-17.0) ng/L Total Protein 6.4 L (6.5-8.0) g/dL Albumin 3.6 (3.5-5.0) g/dL Procalcitonin < 0.02 ng/mL Beta HCG, Quant mIU/mL Urine Color Urine Appearance Urine pH (5.0-8.0) Ur Specific [place] (1.005-1.025) Urine Protein (NEG-TRACE) MG/DL Urine Glucose (UA) (NEG) MG/DL Urine Ketones (NEG) MG/DL Urine Blood (NEG) Urine Nitrite (NEG) Ur Leukocyte Esterase (NEG) Coronavirus (PCR) Influenza Type A (PCR) Influenza Type B (PCR) RSV RNA Qual (PCR) 07/01/20 07/01/20 07/01/20 Range/Units 11:36 11:44 13:27 WBC (4.8-10.8) X10*3/uL RBC (4.20-5.50) X10*6/uL Hgb (12.0-16.0) g/dl Hct (37-47) % MCV (80-98) fL MCH (27.0-33.0) pg MCHC (31.0-35.0) g/dl RDW (11.0-16.0) % Plt Count (160-400) X10*3/uL MPV (9.4-12.3) fL Immature Gran % (Auto) Neut % (Auto) Lymph % (Auto) Irion % (Auto) Eos % (Auto) Baso % (Auto) Lymph # (Auto) [place] # (Auto) Eos # (Auto) Baso # (Auto) Abs Immat Gran (auto) Absolute Neuts (auto) Absolute Nucleated RBC (0.0-0.012) X10*3/uL Nucleated RBC % (auto) (0.0-0.2) /100WBC Neutrophils % (Manual) (45-73) % Band Neutrophils % (3-5) % Lymphocytes % (Manual) (20-40) % Atypical Lymphs % (Man) (0-6) % Monocytes % (Manual) (2-11) % Basophils % (Manual) (0-1) % Abs Neuts (Manual) (2.2-7.9) X10*3/uL Lymphocytes # (Manual) (0.6-4.8) X10*3/uL Atyp Lymphs # (Manual) x10*3/uL Monocytes # (Manual) (0.0-1.2) X10*3/uL Basophils # (Manual) (0.0-0.3) X10*3/uL Smudge Cells Platelet Estimate (NORMAL) Plt Morphology Comment RBC Morphology Smear Tech's Comments PT (10.8-13.0) SEC INR (0.9-1.1) APTT (24.1-38.0) SEC D-Dimer NG/ML Sodium (135-145) mmol/L Potassium (3.3-5.1) mmol/l Chloride (96-108) mmol/L Carbon Dioxide (22-29) mmol/L Anion Gap (12-20) BUN (9-16) mg/dL Creatinine (0.5-1.4) mg/dL Estim Creat Clear Calc Estimated GFR POC Glucose 121 H (60-115) mg/dL Random Glucose (60-115) mg/dL Lactic Acid (0.5-2.0) mmol/L Calcium (8.4-10.2) mg/dL Ferritin (10-250) ng/mL Total Bilirubin (0.0-1.0) mg/dL AST (5-31) U/L ALT (0-31) U/L Alkaline Phosphatase (39-117) U/L Lactate Dehydrogenase (122-220) U/L Troponin I High Sens (<3.5-17.0) ng/L Total Protein (6.5-8.0) g/dL Albumin (3.5-5.0) g/dL Procalcitonin ng/mL Beta HCG, Quant < 2 mIU/mL Urine Color Urine Appearance Urine pH (5.0-8.0) Ur Specific [place] (1.005-1.025) Urine Protein (NEG-TRACE) MG/DL Urine Glucose (UA) (NEG) MG/DL Urine Ketones (NEG) MG/DL Urine Blood (NEG) Urine Nitrite (NEG) Ur Leukocyte Esterase (NEG) Coronavirus (PCR) Cancelled Influenza Type A (PCR) Cancelled Influenza Type B (PCR) Cancelled RSV RNA Qual (PCR) Cancelled 07/01/20 07/01/20 07/01/20 Range/Units 13:27 13:35 14:05 WBC (4.8-10.8) X10*3/uL RBC (4.20-5.50) X10*6/uL Hgb (12.0-16.0) g/dl Hct (37-47) % MCV (80-98) fL MCH (27.0-33.0) pg MCHC (31.0-35.0) g/dl RDW (11.0-16.0) % Plt Count (160-400) X10*3/uL MPV (9.4-12.3) fL Immature Gran % (Auto) Neut % (Auto) Lymph % (Auto) Irion % (Auto) Eos % (Auto) Baso % (Auto) Lymph # (Auto) [place] # (Auto) Eos # (Auto) Baso # (Auto) Abs Immat Gran (auto) Absolute Neuts (auto) Absolute Nucleated RBC (0.0-0.012) X10*3/uL Nucleated RBC % (auto) (0.0-0.2) /100WBC Neutrophils % (Manual) (45-73) % Band Neutrophils % (3-5) % Lymphocytes % (Manual) (20-40) % Atypical Lymphs % (Man) (0-6) % Monocytes % (Manual) (2-11) % Basophils % (Manual) (0-1) % Abs Neuts (Manual) (2.2-7.9) X10*3/uL Lymphocytes # (Manual) (0.6-4.8) X10*3/uL Atyp Lymphs # (Manual) x10*3/uL Monocytes # (Manual) (0.0-1.2) X10*3/uL Basophils # (Manual) (0.0-0.3) X10*3/uL Smudge Cells Platelet Estimate (NORMAL) Plt Morphology Comment RBC Morphology Smear Tech's Comments PT (10.8-13.0) SEC INR (0.9-1.1) APTT (24.1-38.0) SEC D-Dimer NG/ML Sodium (135-145) mmol/L Potassium (3.3-5.1) mmol/l Chloride (96-108) mmol/L Carbon Dioxide (22-29) mmol/L Anion Gap (12-20) BUN (9-16) mg/dL Creatinine (0.5-1.4) mg/dL Estim Creat Clear Calc Estimated GFR POC Glucose 75 (60-115) mg/dL Random Glucose (60-115) mg/dL Lactic Acid 1.0 (0.5-2.0) mmol/L Calcium (8.4-10.2) mg/dL Ferritin (10-250) ng/mL Total Bilirubin (0.0-1.0) mg/dL AST (5-31) U/L ALT (0-31) U/L Alkaline Phosphatase (39-117) U/L Lactate Dehydrogenase (122-220) U/L Troponin I High Sens (<3.5-17.0) ng/L Total Protein (6.5-8.0) g/dL Albumin (3.5-5.0) g/dL Procalcitonin ng/mL Beta HCG, Quant mIU/mL Urine Color YELLOW Urine Appearance CLEAR Urine pH 6.5 (5.0-8.0) Ur Specific [place] 1.010 (1.005-1.025) Urine Protein NEG (NEG-TRACE) MG/DL Urine Glucose (UA) NEG (NEG) MG/DL Urine Ketones NEG (NEG) MG/DL Urine Blood NEG (NEG) Urine Nitrite NEG (NEG) Ur Leukocyte Esterase NEG (NEG) Coronavirus (PCR) Influenza Type A (PCR) Influenza Type B (PCR) RSV RNA Qual (PCR) 07/01/20 07/01/20 Range/Units 15:27 16:18 WBC (4.8-10.8) X10*3/uL RBC (4.20-5.50) X10*6/uL Hgb (12.0-16.0) g/dl Hct (37-47) % MCV (80-98) fL MCH (27.0-33.0) pg MCHC (31.0-35.0) g/dl RDW (11.0-16.0) % Plt Count (160-400) X10*3/uL MPV (9.4-12.3) fL Immature Gran % (Auto) Neut % (Auto) Lymph % (Auto) [place] % (Auto) Eos % (Auto) Baso % (Auto) Lymph # (Auto) [place] # (Auto) Eos # (Auto) Baso # (Auto) Abs Immat Gran (auto) Absolute Neuts (auto) Absolute Nucleated RBC (0.0-0.012) X10*3/uL Nucleated RBC % (auto) (0.0-0.2) /100WBC Neutrophils % (Manual) (45-73) % Band Neutrophils % (3-5) % Lymphocytes % (Manual) (20-40) % Atypical Lymphs % (Man) (0-6) % Monocytes % (Manual) (2-11) % Basophils % (Manual) (0-1) % Abs Neuts (Manual) (2.2-7.9) X10*3/uL Lymphocytes # (Manual) (0.6-4.8) X10*3/uL Atyp Lymphs # (Manual) x10*3/uL Monocytes # (Manual) (0.0-1.2) X10*3/uL Basophils # (Manual) (0.0-0.3) X10*3/uL Smudge Cells Platelet Estimate (NORMAL) Plt Morphology Comment RBC Morphology Smear Tech's Comments PT (10.8-13.0) SEC INR (0.9-1.1) APTT (24.1-38.0) SEC D-Dimer NG/ML Sodium (135-145) mmol/L Potassium (3.3-5.1) mmol/l Chloride (96-108) mmol/L Carbon Dioxide (22-29) mmol/L Anion Gap (12-20) BUN (9-16) mg/dL Creatinine (0.5-1.4) mg/dL Estim Creat Clear Calc Estimated GFR POC Glucose 67 105 (60-115) mg/dL Random Glucose (60-115) mg/dL Lactic Acid (0.5-2.0) mmol/L Calcium (8.4-10.2) mg/dL Ferritin (10-250) ng/mL Total Bilirubin (0.0-1.0) mg/dL AST (5-31) U/L ALT (0-31) U/L Alkaline Phosphatase (39-117) U/L Lactate Dehydrogenase (122-220) U/L Troponin I High Sens (<3.5-17.0) ng/L Total Protein (6.5-8.0) g/dL Albumin (3.5-5.0) g/dL Procalcitonin ng/mL Beta HCG, Quant mIU/mL Urine Color Urine Appearance Urine pH (5.0-8.0) Ur Specific [place] (1.005-1.025) Urine Protein (NEG-TRACE) MG/DL Urine Glucose (UA) (NEG) MG/DL Urine Ketones (NEG) MG/DL Urine Blood (NEG) Urine Nitrite (NEG) Ur Leukocyte Esterase (NEG) Coronavirus (PCR) Influenza Type A (PCR) Influenza Type B (PCR) RSV RNA Qual (PCR) <Gato Galaviz MD - Last Filed: 07/01/20 16:09> ECG Data Interpretation: normal sinus rhythm. Ventricular rate 68. IN interval 144. Care is 84. Normal EKG. <TESS Guerra - Last Filed: 07/01/20 17:16> Discharge Plan Discharge Clinical Impression: Hypoglycemia <TESS Guerra - Last Filed: 07/01/20 17:16> Patient Disposition: Home, Self-Care <TESS Guerra - Last Filed: 07/01/20 17:16> Instructions: Non-diabetic Hypoglycemia (ED) <TESS Guerra - Last Filed: 07/01/20 17:16> Additional Instructions: return to the ED immediately for weakness, shortness of breath, chest pain, low glucose, abdominal pain, fever, chills, or any other concerning symptoms. <TESS Guerra - Last Filed: 07/01/20 17:16> Prescriptions: No Action zolpidem [Ambien] 10 mg tablet 10 mg PO BEDTIME PRN (Reason: sleep) 30 Days Qty: 10 RF: 0 lorazepam 0.5 mg tablet 0.5 mg PO TID PRNRF: 0 quetiapine 25 mg tablet 50 mg PO ONCE RF: 0 pregabalin 25 mg capsule 25 mg PO TID RF: 0 hydroxyzine pamoate 50 mg capsule 50 mg PO Q6H PRN (Reason: anxiety) RF: 0 metoclopramide HCl 5 mg tablet 5 mg PO DAILY RF: 0 tizanidine 4 mg tablet 4 mg PO Q6H PRNRF: 0 sertraline 50 mg tablet 50 mg PO DAILY RF: 0 bupropion HCl 100 mg tablet sustained-release 12 hr PO RF: 0 sertraline 100 mg tablet 100 mg PO DAILY RF: 0 cholecalciferol (vitamin D3) 125 mcg (5,000 unit) capsule 0 mcg PO RF: 0 simethicone 125 mg capsule 125 mg PO QID PRNRF: 0 albuterol sulfate 90 mcg/actuation HFA aerosol inhaler 0 mcg inhalation RF: 0 ipratropium-albuterol 0.5 mg-3 mg(2.5 mg base)/3 mL solution for nebulization 3 ml inhalation QID RF: 0 Advair HFA 230-21 mcg/actuation HFA aerosol inhaler 2 puff inhalation BID RF: 0 fluticasone propionate [Flonase Allergy Relief] 50 mcg/actuation spray,suspension 1 spray intranasal BID 30 Days Qty: 15.8 RF: 3 prednisone 10 mg tablet See Rx Instructions PO DAILY PRN (Reason: cough, wheeze) 10 Days Qty: 28 RF: 0 pantoprazole 40 mg tablet,delayed release (DR/EC) 40 mg PO DAILY RF: 0 Advair HFA 230-21 mcg/actuation HFA aerosol inhaler inhalation RF: 0 <TESS Guerra - Last Filed: 07/01/20 17:16> Referrals: Torsten Causey MD [Primary Care Provider] - 2 days ( Hypoglycemia due to not eating) <TESS Guerra - Last Filed: 07/01/20 17:16> Stand Alone Forms: Work/School Release <TESS Guerra - Last Filed: 07/01/20 17:16> Print Language: Norwegian <TESS Guerra - Last Filed: 07/01/20 17:16>
--- NOTE | 2020-07-01 11:26 | ECG_ITS ---
Test Reason : FLU LIKE SYMPTOMS Blood Pressure : / mmHG Vent. Rate : 068 BPM Atrial Rate : 068 BPM P-R Int : 144 ms QRS Dur : 084 ms QT Int : 446 ms P-R-T Axes : 051 003 023 degrees QTc Int : 474 ms Normal sinus rhythm Normal ECG No previous ECGs available Referred By: Soham Torre Electronically Signed By:KYLEE POWELL MD
--- NOTE | 2020-07-01 11:29 | XR_ITS ---
EXAMINATION: XR CHEST CLINICAL INFORMATION: Upper respiratory infection. Shortness of breath. COMPARISON: 03/28/2020 TECHNIQUE: Frontal view of the chest was obtained. FINDINGS: Cardiac leads overlie the chest. The lungs are well expanded. There is no focal consolidation, edema, or effusion. No pneumothorax. The cardiomediastinal silhouette is within normal limits. No acute osseous abnormality. XR/XR chest 1V IMPRESSION: Clear lungs.
[2020-07-01] MEDS: Dextrose 5 % 1,000 ML 125 ML IVCONT (11:46)
--- NOTE | 2020-07-01 11:46 | PC.NURSE ---
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
[2020-07-01 11:49] LABS: INTERNATIONAL NORM RATIO 0.9 (0.9-1.1); Prothrombin Time 11.2 SEC (10.8-13.0)
[2020-07-01 11:52] LABS: Partial Thromboplastin Time 31.7 SEC (24.1-38.0)
[2020-07-01 11:54] LABS: D Dimer < 200 NG/ML
[2020-07-01 12:00] LABS: Hemoglobin 11.8 g/dl (12.0-16.0); Mean Corpuscular HGB Conc 32.8 g/dl (31.0-35.0); Mean Corpuscular Hemoglobin 26.3 pg (27.0-33.0); Mean Corpuscular Volume 80.4 fL (80-98); Mean Platelet Volume 8.8 fL (9.4-12.3); Platelet Count 431 X10*3/uL (160-400); Red Blood Count 4.48 X10*6/uL (4.20-5.50); Red Cell Distribution Width 13.9 % (11.0-16.0); White Blood Count 18.4 X10*3/uL (4.8-10.8)
[2020-07-01 12:26] LABS: SLIDE REVIEW MANUAL DIFF
[2020-07-01 12:28] LABS: Troponin-I High Sensitivity < 3.5 ng/L (<3.5-17.0)
[2020-07-01 12:29] LABS: Alanine Aminotransferase 18 U/L (0-31); Albumin Level 3.6 g/dL (3.5-5.0); Alkaline Phosphatase 70 U/L (39-117); Anion Gap 15 (12-20); Aspartate Amino Transferase 20 U/L (5-31); Bilirubin Total 0.5 mg/dL (0.0-1.0); Blood Urea Nitrogen 13 mg/dL (9-16); Calcium 8.5 mg/dL (8.4-10.2); Carbon Dioxide 21 mmol/L (22-29); Chloride 105 mmol/L (96-108); Creatinine Clr Calc Pharmacy 121.6; Estimated Glomerular Filt Rate > 60; Glucose Random 58 mg/dL (60-115); Lactate Dehydrogenase 180 U/L (122-220); Potassium 3.6 mmol/l (3.3-5.1); Sodium 137 mmol/L (135-145); Total Protein 6.4 g/dL (6.5-8.0)
[2020-07-01 12:30] LABS: Glucose, Whole Blood 121 mg/dL (60-115)
[2020-07-01 12:30] LABS: Glucose, Whole Blood 60 mg/dL (60-115)
[2020-07-01 12:33] LABS: HCG Quantitative < 2 mIU/mL
[2020-07-01 12:43] LABS: Procalcitonin < 0.02 ng/mL
[2020-07-01 12:47] LABS: Ferritin 11 ng/mL (10-250)
--- NOTE | 2020-07-01 13:08 | CT_ITS ---
EXAM: Contrast-enhanced CT scan of the chest, abdomen, and pelvis. INDICATION: Elevated white blood cell count. Question pneumonia, peritonitis, appendicitis or colitis. COMPARISON: Same day chest x-ray and CT abdomen pelvis 06/18/2020 TECHNIQUE: Multidetector helical imaging of the chest, abdomen, and pelvis was obtained from the thoracic inlet through the pubic symphysis following administration of 85 cc of Omnipaque 350 IV contrast. Coronal and sagittal reformatted images that were obtained were also reviewed. DLP: 1910 mGy-cm FINDINGS: CHEST: Central airways are patent. Lungs are well aerated. There is no lobar consolidation. Minimal dependent atelectasis is present. No pleural effusion or pneumothorax. The heart is normal in size. There is no pericardial effusion. No gross mediastinal lymphadenopathy. Nonaneurysmal thoracic aorta. No enlarged axillary lymph nodes. ABDOMEN/PELVIS: The liver demonstrates normal size, contour and attenuation. The gallbladder is surgically absent. The pancreas, spleen and adrenal glands are unremarkable. Small splenule. Symmetrically enhancing kidneys without hydronephrosis. Postsurgical changes of the stomach consistent with gastric sleeve. Normal caliber loops of small and large bowel. Normal appendix. Nonaneurysmal abdominal aorta. The bladder is well-distended and normal in appearance. Unremarkable CT appearance of the uterus. IUD in expected orientation. 2.5 cm left adnexal cyst. No gross free pelvic fluid. No inguinal lymphadenopathy. OSSEOUS STRUCTURES Mild diffuse degenerative changes of the thoracolumbar spine. CT/CT abdomen pelvis w con IMPRESSION: No CT evidence for acute abnormality within the chest, abdomen or pelvis. This CT examination was performed using dose optimization techniques as appropriate, variously including the following: *Automated exposure control *Adjustment of mA and/or kV according to patient size (this includes techniques or standardized protocols for targeted exams where dose is matched to indication/reason for exam; i.e. extremities or head) *Use of iterative reconstruction technique
[2020-07-01 13:15] LABS: Atypical Lymph Absolute Manual 1.3 x10*3/uL; Atypical Lymphs Percent Manual 7 % (0-6); Band Neutrophils Percent 0 % (3-5); Basophils Abs Manual 0.4 X10*3/uL (0.0-0.3); Basophils Percent Manual 2 % (0-1); Lymphocytes Absolute Manual 5.9 X10*3/uL (0.6-4.8); Lymphocytes Percent Manual 32 % (20-40); Monocytes Absolute Manual 0.7 X10*3/uL (0.0-1.2); Monocytes Percent Manual 4 % (2-11); Neutrophils Absolute Manual 10.1 X10*3/uL (2.2-7.9); Neutrophils Percent Manual 55 % (45-73); Platelet Estimate SLIGHTLY INCREASED (NORMAL); Platelet Morphology Comment NORM; RBC Morphology NORMAL; Smudge Cells PRESENT
[2020-07-01] MEDS: iohexoL 350 MG/ML 100 ML INFUS..BTL 85 ML IV (13:41)
[2020-07-01 13:43] LABS: Glucose Urine UA NEG (NEG); Leukocyte Esterase Urine NEG (NEG); Nitrite Urine NEG (NEG); PH 6.5 (5.0-8.0); Urine Blood NEG (NEG); Urine Ketones NEG (NEG); Urine Protein NEG (NEG-TRACE)
[2020-07-01 13:45] LABS: Appearance Urine CLEAR; Color Urine YELLOW
--- NOTE | 2020-07-01 14:01 | PC.NURSE ---
pt ambulated independently to bathroom, urine obtained, bc/vl obtained, covid swab obtained, pt to ct scan
[2020-07-01 14:02] VITALS: BP 145/86; PULSE 71; RESP 18; TEMP 36.6; O2SAT 100
--- NOTE | 2020-07-01 14:08 | PC.NURSE ---
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
[2020-07-01 14:13] LABS: Glucose, Whole Blood 75 mg/dL (60-115)
[2020-07-01 15:32] LABS: Glucose, Whole Blood 67 mg/dL (60-115)
--- NOTE | 2020-07-01 15:35 | PC.NURSE ---
per verbal order by provider, pt given sandwich/something to drink, patient a&ox3, pt currently asymptomatic to hypoglycemia, will continue to monitor.
[2020-07-01 16:00] VITALS: BP 131/62; PULSE 77; RESP 18; TEMP 36.7; O2SAT 100
--- NOTE | 2020-07-01 16:01 | PC.NURSE ---
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
[2020-07-01 16:29] LABS: Glucose, Whole Blood 105 mg/dL (60-115)
[2020-07-01 17:20] LABS: Troponin-I High Sensitivity < 3.5 ng/L (<3.5-17.0)
== END 2020-07-01 17:58 | disposition home or self-care (01) ==
PROVIDERS: Physician Assistant; Emergency Provider Emergency Medicine; PCP Family Medicine
DX: E16.2 Hypoglycemia, unspecified (principal); R06.02 Shortness of breath; Z79.899 Other long term (current) drug therapy; Z20.828 Contact with and (suspected) exposure to other viral communicable diseases
CPT/HCPCS: 36415; 71045; 71260; 74177; 80053; 80061; 81003; 82024; 82157; 82533; 82627; 82656; 82670; 82728; 82947; 83001; 83002; 83036; 83498; 83605; 83615; 83721; 83993; 84145; 84146; 84270; 84402; 84403; 84439; 84443; 84484; 84702; 85007; 85025; 85027; 85379; 85610; 85730; 87040; 93005; 96360; 96361; 99284; 99285; Q9967; U0003

== ENCOUNTER 2020-07-04 06:44 | Outpatient (REF) | payer MEDICARE, OTHER, SELFPAY ==
[2020-07-04 07:37] LABS: Anion Gap 13 (12-20); Blood Urea Nitrogen 15 mg/dL (9-16); Calcium 8.2 mg/dL (8.4-10.2); Carbon Dioxide 26 mmol/L (22-29); Chloride 105 mmol/L (96-108); Estimated Glomerular Filt Rate > 60; Glucose Random 76 mg/dL (60-115); Potassium 3.9 mmol/l (3.3-5.1); Sodium 140 mmol/L (135-145)
[2020-07-05 09:57] LABS: DHEA Sulfate 7 mcg/dL (19-231)
[2020-07-07 19:02] LABS: Adrenocorticotropic Hormone 14 pg/mL (6-50)
== END 2020-07-04 06:45 | disposition home or self-care (01) ==
LOC: HO.LAB 06:44
PROVIDERS: PCP Family Medicine; Visit Provider Internal Medicine
DX: E16.2 Hypoglycemia, unspecified (principal)
CPT/HCPCS: 80048; 82024; 82533; 82627

== ENCOUNTER 2020-07-07 14:00 | Outpatient (RCR) | payer MEDICARE, MEDICAID, SELFPAY ==
--- NOTE | 2020-05-15 14:30 | P.PNPS_ITS ---
TMS Daily Progress Note Daily TMS Progress Note Week #: 3 Treatment #(09-13): 13 PHQ-9 Pre-Treatment (09-10): 17 PHQ-9 Most Recent (09-10): 19 Reviewed: TMS Tech Note Reviewed Verification: I have reviewed the TMS Eligibility And Occupancy Interviewer Note and agree with the contents. The patient remains a candidate to continue TMS treatment per protocol.
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
--- NOTE | 2020-05-20 15:25 | HO.TMSDAILY2 ---
TMS Daily Progress Note Daily TMS Progress Note Week #: 3 Treatment #(09-13): 15 PHQ-9 Pre-Treatment (09-10): 16 PHQ-9 Most Recent (09-10): 17 Reviewed: TMS Tech Note Reviewed Verification: I have reviewed the TMS Manager Laboratory Note and agree with the contents. The patient remains a candidate to continue TMS treatment per protocol.
--- NOTE | 2020-05-23 18:42 | HO.TMSDAILY2 ---
TMS Daily Progress Note Daily TMS Progress Note Week #: 4 Treatment #(09-13): 16 PHQ-9 Pre-Treatment (09-10): 16 PHQ-9 Most Recent (09-10): 17 LUKASZ-7 Pre-Treatment (0-): 16 LUKASZ-7 Most Recent (0-): 17 Q-LES-Q-SF Most Recent: 32 Reviewed: TMS Tech Note Reviewed Verification: I have reviewed the TMS It Investment/Portfolio Manager Note and agree with the contents. The patient remains a candidate to continue TMS treatment per protocol.
--- NOTE | 2020-05-27 21:14 | P.PNPS_ITS ---
TMS Daily Progress Note Daily TMS Progress Note Week #: 4 Treatment #(09-13): 16 PHQ-9 Pre-Treatment (09-10): 16 PHQ-9 Most Recent (09-10): 17 Reviewed: TMS Tech Note Reviewed Verification: I have reviewed the TMS Admissions Consultant Note and agree with the contents. The patient remains a candidate to continue TMS treatment per protocol.
--- NOTE | 2020-05-28 20:18 | HO.TMSDAILY2 ---
TMS Daily Progress Note Daily TMS Progress Note Week #: 4 Treatment #(09-13): 18 PHQ-9 Pre-Treatment (09-10): 16 PHQ-9 Most Recent (09-10): 16 LUKASZ-7 Pre-Treatment (0-): 16 LUKASZ-7 Most Recent (0-21): 15 Q-LES-Q-SF Most Recent: 32 Reviewed: TMS Tech Note Reviewed Verification: I have reviewed the TMS News Library Director Note and agree with the contents. The patient remains a candidate to continue TMS treatment per protocol.
--- NOTE | 2020-05-29 16:21 | P.PNPS_ITS ---
TMS Daily Progress Note Daily TMS Progress Note Week #: 4 Treatment #(09-13): 19 PHQ-9 Pre-Treatment (09-10): 16 PHQ-9 Most Recent (09-10): 16 LUKASZ-7 Pre-Treatment (0-21): 16 LUKASZ-7 Most Recent (0-21): 15 Q-LES-Q-SF Most Recent: 32 Reviewed: TMS Tech Note Reviewed Verification: I have reviewed the TMS Receptionist Secretary Note and agree with the contents. The patient remains a candidate to continue TMS treatment per protocol.
--- NOTE | 2020-05-30 18:14 | HO.TMSDAILY2 ---
TMS Daily Progress Note Daily TMS Progress Note Week #: 4 Treatment #(09-13): 20 PHQ-9 Pre-Treatment (09-10): 16 PHQ-9 Most Recent (09-10): 16 LUKASZ-7 Pre-Treatment (0-21): 16 LUKASZ-7 Most Recent (0-21): 15 CGI-I Most Recent: 4 = No Change Q-LES-Q-SF Most Recent: 32 Reviewed: TMS Tech Note Reviewed Verification: I have reviewed the TMS Snowblower Mechanic Note and agree with the contents. The patient remains a candidate to continue TMS treatment per protocol.
--- NOTE | 2020-06-02 15:29 | P.PNPS_ITS ---
TMS Daily Progress Note Daily TMS Progress Note Week #: 5 Treatment #(09-13): 21 PHQ-9 Pre-Treatment (09-10): 16 PHQ-9 Most Recent (09-10): 16 LUKASZ-7 Pre-Treatment (0-): 16 LUKASZ-7 Most Recent (0-): 15 Q-LES-Q-SF Most Recent: 32 Reviewed: TMS Tech Note Reviewed Verification: I have reviewed the TMS Icicle Machine Operator Note and agree with the contents. The patient remains a candidate to continue TMS treatment per protocol.
--- NOTE | 2020-06-03 23:08 | P.PNPS_ITS ---
TMS Daily Progress Note Daily TMS Progress Note Week #: 5 Treatment #(09-13): 22 PHQ-9 Pre-Treatment (09-10): 16 PHQ-9 Most Recent (09-10): 6 Reviewed: TMS Tech Note Reviewed Verification: I have reviewed the TMS Therapeutic Activities Services Worker Note and agree with the contents. The patient remains a candidate to continue TMS treatment per protocol.
--- NOTE | 2020-06-04 11:17 | HO.TMSDAILY2 ---
TMS Daily Progress Note Daily TMS Progress Note Week #: 5 Treatment #(09-13): 23 PHQ-9 Pre-Treatment (09-10): 16 PHQ-9 Most Recent (09-10): 16 CGI-I Most Recent: 4 = No Change Reviewed: TMS Tech Note Reviewed Verification: I have reviewed the TMS Recruitment Internship Note and agree with the contents. The patient remains a candidate to continue TMS treatment per protocol.
--- NOTE | 2020-06-04 21:59 | P.PNPS_ITS ---
TMS Daily Progress Note Daily TMS Progress Note Week #: 5 Treatment #(09-13): 23 PHQ-9 Pre-Treatment (09-10): 16 PHQ-9 Most Recent (09-10): 16 LUKASZ-7 Pre-Treatment (0-): 16 LUKASZ-7 Most Recent (0-21): 15 Q-LES-Q-SF Most Recent: 55 Reviewed: TMS Tech Note Reviewed Verification: I have reviewed the TMS Mains And Service Supervisor Note and agree with the contents. The patient remains a candidate to continue TMS treatment per protocol.
--- NOTE | 2020-06-10 16:35 | HO.TMSDAILY2 ---
TMS Daily Progress Note Daily TMS Progress Note Week #: 5 Treatment #(09-13): 25 PHQ-9 Pre-Treatment (09-10): 16 PHQ-9 Most Recent (09-10): 14 ULKASZ-7 Pre-Treatment (0-21): 16 LUKASZ-7 Most Recent (0-21): 15 CGI-I Most Recent: 4 = No Change Q-LES-Q-SF Most Recent: 55 Reviewed: TMS Tech Note Reviewed Verification: I have reviewed the TMS Veneer Drier Feeder Note and agree with the contents. The patient remains a candidate to continue TMS treatment per protocol.
--- NOTE | 2020-06-11 14:51 | HO.TMSDAILY2 ---
TMS Daily Progress Note Daily TMS Progress Note Week #: 6 Treatment #(09-13): 26 PHQ-9 Pre-Treatment (09-10): 16 PHQ-9 Most Recent (09-10): 14 LUKASZ-7 Pre-Treatment (0-21): 16 LUKASZ-7 Most Recent (0-21): 14 CGI-I Most Recent: 4 = No Change Q-LES-Q-SF Most Recent: 55 Reviewed: TMS Tech Note Reviewed Verification: I have reviewed the TMS Agent Licensing Clerk Note and agree with the contents. The patient remains a candidate to continue TMS treatment per protocol.
--- NOTE | 2020-06-13 10:23 | HO.TMSDAILY2 ---
TMS Daily Progress Note Daily TMS Progress Note Week #: 5 Treatment #(30): 24 PHQ-9 Pre-Treatment (09-10): 16 PHQ-9 Most Recent (09-10): 16 LUKASZ-7 Pre-Treatment (0-21): 16 LUKASZ-7 Most Recent (0-21): 16 CGI-I Most Recent: 4 = No Change Q-LES-Q-SF Most Recent: 55 Reviewed: TMS Tech Note Reviewed Verification: Late entry for 06/09/20 I have reviewed the TMS As400 Consultant Note and agree with the contents. The patient remains a candidate to continue TMS treatment per protocol.
--- NOTE | 2020-06-16 19:07 | HO.TMSDAILY2 ---
TMS Daily Progress Note Daily TMS Progress Note Week #: 6 Treatment #(09-13): 27 PHQ-9 Pre-Treatment (09-10): 16 PHQ-9 Most Recent (09-10): 16 LUKASZ-7 Pre-Treatment (0-): 16 LUKASZ-7 Most Recent (0-21): 14 CGI-I Most Recent: 4 = No Change Q-LES-Q-SF Most Recent: 55 Reviewed: TMS Tech Note Reviewed Verification: I have reviewed the TMS District Superintendent Note and agree with the contents. The patient remains a candidate to continue TMS treatment per protocol.
--- NOTE | 2020-06-17 16:47 | HO.TMSDAILY2 ---
TMS Daily Progress Note Daily TMS Progress Note Week #: 6 Treatment #(09-13): 28 PHQ-9 Pre-Treatment (09-10): 16 PHQ-9 Most Recent (09-10): 16 LUKASZ-7 Pre-Treatment (0-21): 16 LUKASZ-7 Most Recent (0-21): 14 CGI-I Most Recent: 4 = No Change Q-LES-Q-SF Most Recent: 55 Reviewed: TMS Tech Note Reviewed Verification: I have reviewed the TMS Process Engineering Technician Note and agree with the contents. The patient remains a candidate to continue TMS treatment per protocol.
--- NOTE | 2020-06-18 09:23 | P.PNPS_ITS ---
TMS Daily Progress Note Daily TMS Progress Note Week #: 6 Treatment #(09-13): 29 PHQ-9 Pre-Treatment (09-10): 16 PHQ-9 Most Recent (09-10): 13 LUKASZ-7 Pre-Treatment (0-21): 16 LUKASZ-7 Most Recent (0-21): 15 CGI-I Most Recent: 4 = No Change Q-LES-Q-SF Most Recent: 55 Reviewed: TMS Tech Note Reviewed Verification: I have reviewed the TMS Cnc Lathe Programmer Note and agree with the contents. The patient remains a candidate to continue TMS treatment per protocol.
--- NOTE | 2020-06-19 15:38 | P.PNPS_ITS ---
TMS Daily Progress Note Daily TMS Progress Note Week #: 6 Treatment #(-): 30 PHQ-9 Pre-Treatment (09-10): 16 PHQ-9 Most Recent (09-10): 13 LUKASZ-7 Pre-Treatment (0-21): 16 LUKASZ-7 Most Recent (0-21): 15 CGI-I Most Recent: 4 = No Change Q-LES-Q-SF Most Recent: 55 Reviewed: TMS Tech Note Reviewed Verification: I have reviewed the TMS Pole Peeling Machine Operator Helper Note and agree with the contents. The patient remains a candidate to continue TMS treatment per protocol.
--- NOTE | 2020-06-20 14:24 | HO.TMSDAILY2 ---
TMS Daily Progress Note Daily TMS Progress Note Week #: 7 Treatment #(09-13): 31 PHQ-9 Pre-Treatment (09-10): 16 PHQ-9 Most Recent (09-10): 13 LUKASZ-7 Pre-Treatment (0-21): 16 LUKASZ-7 Most Recent (0-21): 15 CGI-I Most Recent: 4 = No Change Q-LES-Q-SF Most Recent: 55 Reviewed: TMS Tech Note Reviewed Verification: I have reviewed the TMS Customer Service Teller Note and agree with the contents. The patient remains a candidate to continue TMS treatment per protocol.
--- NOTE | 2020-07-03 04:21 | HO.TMSDAILY2 ---
TMS Daily Progress Note Daily TMS Progress Note Treatment #(09-13): 31 PHQ-9 Pre-Treatment (09-10): 16 PHQ-9 Most Recent (09-10): 13 LUKASZ-7 Pre-Treatment (0-21): 16 LUKASZ-7 Most Recent (0-21): 15 CGI-I Most Recent: 4 = No Change Q-LES-Q-SF Most Recent: 55 Verification: I have reviewed the TMS System Operation Superintendent Note and agree with the contents. The patient remains a candidate to continue TMS treatment per protocol.
--- NOTE | 2020-07-07 14:46 | P.PNPS_ITS ---
TMS Daily Progress Note Daily TMS Progress Note Week #: 7 Treatment #(09-13): 32 PHQ-9 Pre-Treatment (09-10): 16 PHQ-9 Most Recent (09-10): 14 LUKASZ-7 Pre-Treatment (0-21): 16 LUKASZ-7 Most Recent (0-21): 12 CGI-I Most Recent: 3 = Minimally Improved Q-LES-Q-SF Most Recent: 55 Reviewed: TMS Tech Note Reviewed Verification: I have reviewed the TMS Technical Instructor Note and agree with the contents. The patient remains a candidate to continue TMS treatment per protocol.
--- NOTE | 2020-07-09 05:46 | P.PNPS_ITS ---
TMS Daily Progress Note Daily TMS Progress Note Date of Service: 07/09/20 Treatment #(-): 32 PHQ-9 Pre-Treatment (1-): 16 PHQ-9 Most Recent (09-10): 14 LUKASZ-7 Pre-Treatment (0-21): 16 LUKASZ-7 Most Recent (0-21): 12 CGI-I Most Recent: 3 = Minimally Improved Q-LES-Q-SF Most Recent: 55 Verification: I have reviewed the TMS Consumer Loan Specialist Note and agree with the contents. The patient remains a candidate to continue TMS treatment per protocol.
== END 2020-07-07 14:30 | disposition home or self-care (01) ==
LOC: HO.PTMS 14:00
PROVIDERS: PCP Family Medicine; Visit Provider Psychiatry & Neurology Psychiatry
DX: F33.2 Major depressive disorder, recurrent severe without psychotic features (principal); F43.10 Post-traumatic stress disorder, unspecified; F41.1 Generalized anxiety disorder
CPT/HCPCS: 36415; 82607; 82746; 83540; 85027; 90868

== ENCOUNTER 2020-07-14 11:31 | Outpatient (REF) | payer MEDICARE, OTHER, SELFPAY ==
--- NOTE | 2020-07-14 11:38 | MM_ITS ---
EXAMINATION: BONE DENSITOMETRY CLINICAL INDICATION: Urania's syndrome, unspecified. COMPARISON: None (current study represents initial baseline exam). TECHNIQUE: Using a [employer] DXA System (software version: 13.1) manufactured by [employer], dual-energy x-ray absorptiometry was performed of the lumbar spine and left hip. The images are of good technical quality. Summary results are attached. FINDINGS: AP SPINE L1-L2 (excluding L3 and L4): The data of L1-L4 has been changed to exclude the L3 and L4 vertebral bodies, because degenerative changes at these levels may cause overestimation of lumbar spine density. BMD 1.360 g/cm2, Z-score 0.7, T-score 1.6, normal. LEFT FEMUR, NECK: BMD 1.005 g/cm2, Z-score -0.3, T-score -0.2, normal. LEFT FEMUR, TOTAL: BMD 1.087 g/cm2, Z-score 0.2, T-score 0.6, normal. IDENTIFIED RISK FACTORS: Kidney disease, secondary osteoporosis, anticonvulsant. HISTORY OF FRACTURE: None listed. MEDICATIONS: Vitamin D. MM/XR DEXA axial skeleton IMPRESSION: 1. DIAGNOSIS: Normal bone density based on the lowest T-score value of -0.2 in the femoral neck applying World Health Organization criteria. 2. 10-YEAR FRACTURE RISK PREDICTION, FRAX: Major osteoporotic fracture (clinical spine, forearm, hip or shoulder) 2.7%. Hip fracture 0.1%. 3. Treatment Recommendations: NOF guidelines recommend consideration for treatment in postmenopausal women and men age 50 and older presenting with the following: -A hip or vertebral (clinical or morphometric) fracture. -T-score less than or equal to -2.5 at the femoral neck or spine after appropriate evaluation to exclude secondary causes. -Low bone mass at the hip or spine and a 10-year fracture probability by FRAX of greater than or equal to 3% for hip fracture or greater than or equal to 20% for major osteoporotic fracture based on the [place] adapted WHO algorithm. 4. Other Recommendations: All treatment decisions require clinical judgment and consideration of individual patient factors, including patient preferences, comorbidities, previous drug use, risk factors not captured in the FRAX model (e.g. frailty, falls, vitamin D deficiency, increased bone turnover, interval significant decline in bone density) and possible under or overestimation of fracture risk by FRAX. FUTURE SCAN RECOMMENDATION: People with diagnosed cases of osteoporosis or at high risk for fracture should have regular bone mineral density tests. For patients eligible for Medicare, routine testing is allowed once every 2 years. The testing frequency can be increased to one year for patients who have rapidly progressing disease, those who are receiving or discontinuing medical therapy to restore bone mass, or have additional risk factors.
== END 2020-07-14 11:32 | disposition home or self-care (01) ==
LOC: HO.MAMMO 11:31
PROVIDERS: Visit Provider Internal Medicine
DX: Z13.820 Encounter for screening for osteoporosis (principal); E24.9 Cushing's syndrome, unspecified; N28.9 Disorder of kidney and ureter, unspecified
CPT/HCPCS: 77080

== ENCOUNTER 2020-07-30 07:53 | Outpatient (REF) | payer MEDICARE, SELFPAY ==
[2020-07-31 08:13] LABS: Cortisol 30 Minute 15.2 mcg/dL; Cortisol 60 Minute 16.9 mcg/dL; Cortisol Baseline 10.2 mcg/dL
[2020-08-01 22:03] LABS: Adrenocorticotropic Hormone 8 pg/mL (6-50)
== END 2020-07-30 07:54 | disposition home or self-care (01) ==
LOC: HO.MDS 07:53
PROVIDERS: PCP Family Medicine; Visit Provider Internal Medicine
DX: E27.40 Unspecified adrenocortical insufficiency (principal)
CPT/HCPCS: 82024; 82533; 96374; J0834

== ENCOUNTER → 2020-08-11 14:44 | Outpatient (BNVA) | payer MEDICARE, OTHER, SELFPAY | PROVIDERS: Visit Provider Internal Medicine Gastroenterology | DX: Z13.89 Encounter for screening for other disorder (principal) | CPT/HCPCS: Q3014 ==

== ENCOUNTER → 2020-08-25 09:49 | Outpatient (BNVA) | payer MEDICARE, OTHER, SELFPAY | PROVIDERS: PCP Family Medicine; Referring Provider Family Medicine; Visit Provider Internal Medicine | DX: E27.40 Unspecified adrenocortical insufficiency (principal); E24.9 Cushing's syndrome, unspecified; N92.6 Irregular menstruation, unspecified | CPT/HCPCS: Q3014 ==

== ENCOUNTER 2020-08-26 09:38 | Outpatient (REF) | payer MEDICARE, OTHER, SELFPAY ==
--- NOTE | 2020-08-26 09:41 | MR_ITS ---
EXAMINATION: MR ABDOMEN WITHOUT AND WITH CONTRAST CLINICAL INFORMATION: Other specified diseases of the pancreas COMPARISON: Previous CT scans of the abdomen and pelvis most recent 07/01/2020 TECHNIQUE: MR abdomen was performed without and with use of 10 mL intravenous Gadavist gadolinium contrast. Postcontrast images are performed in multiphase dynamic sequences. Imaging was performed in 3 planes. MRCP sequences were also performed FINDINGS: LUNG BASES: The visualized lung bases are unremarkable. LIVER, GALLBLADDER, AND BILIARY TREE: The liver is normal in size, smooth in contour, and normal in signal. No focal hepatic lesion or biliary ductal dilatation is present. The gallbladder has been removed. There is no intra or extrahepatic biliary duct dilatation. MRCP sequences are significantly limited due to motion artifact. A common bile duct stone is not seen. PANCREAS: Unremarkable. SPLEEN: Normal. ADRENAL GLANDS: Normal. KIDNEYS AND URETERS: The kidneys are normal in size, shape, and enhance symmetrically. No hydronephrosis. No perinephric stranding. GASTROINTESTINAL TRACT: No bowel obstruction. No ascites or fluid collection. Postsurgical changes to the stomach are appreciated on gradient echo sequences. ABDOMINAL WALL: No significant hernia is appreciated. LYMPH NODES: No lymphadenopathy. VASCULAR: Unremarkable. OSSEOUS STRUCTURES: Marrow signal normal. MR/MR abdomen wo/w con IMPRESSION: Normal-appearing pancreas. Limited MRCP sequences due to motion. No intra or extrahepatic biliary duct dilatation. Post cholecystectomy.
== END 2020-08-26 09:39 | disposition home or self-care (01) ==
LOC: HO.MRI 09:38
PROVIDERS: Visit Provider Internal Medicine Gastroenterology
DX: K86.89 Other specified diseases of pancreas (principal)
CPT/HCPCS: 74183; A9585

== ENCOUNTER 2020-10-15 14:42 | Outpatient (REF) | payer MEDICARE, SELFPAY ==
--- NOTE | ~2020-10-15 | XR_ITS ---
EXAMINATION: XR KNEES, BILATERAL CLINICAL INFORMATION: Knee pain. COMPARISON: None TECHNIQUE: 4 views each knee. FINDINGS: RIGHT KNEE: There is mild reduction in the medial and patellofemoral compartment joint space without any periapical spurring, loose bodies or joint effusion. There is a tiny superior patellar spur. LEFT KNEE: There is mild reduction in medial and patellofemoral compartment joint space. No bony erosive changes or loose body seen. There is small anterior-inferior patellar enthesophyte. XR/XR knee RT 3V IMPRESSION: 1. Mild degenerative changes in the medial compartments of both knees. No acute fracture or dislocation. 2. No abnormal joint effusion. 3. Bilateral small superior patellar spurring and left knee anterior-inferior patellar enthesophyte.
--- NOTE | ~2020-10-15 | XR_ITS ---
EXAMINATION: XR KNEES, BILATERAL CLINICAL INFORMATION: Knee pain. COMPARISON: None TECHNIQUE: 4 views each knee. FINDINGS: RIGHT KNEE: There is mild reduction in the medial and patellofemoral compartment joint space without any periapical spurring, loose bodies or joint effusion. There is a tiny superior patellar spur. LEFT KNEE: There is mild reduction in medial and patellofemoral compartment joint space. No bony erosive changes or loose body seen. There is small anterior-inferior patellar enthesophyte. XR/XR knee LT 3V IMPRESSION: 1. Mild degenerative changes in the medial compartments of both knees. No acute fracture or dislocation. 2. No abnormal joint effusion. 3. Bilateral small superior patellar spurring and left knee anterior-inferior patellar enthesophyte.
[2020-10-15 16:33] LABS: MANUAL DIFF FLAG NO
[2020-10-15 16:39] LABS: Basophils Absolute Auto 0.1 X10*3/uL (0.0-0.2); Basophils Percent Auto 0.5 % (0-2); Eosinophils Absolute Auto 0.2 X10*3/uL (0.0-0.4); Eosinophils Percent Auto 1.1 % (0-4); Hematocrit 38.7 % (37-47); Hemoglobin 12.3 g/dl (12.0-16.0); Imm Gran Abs Auto 0.08 X10*3/uL (0.00-0.03); Imm Gran Pct Auto 0.6 % (0.0-0.4); Lymphocytes Absolute Auto 3.8 X10*3/uL (1.2-4.9); Lymphocytes Percent Auto 26.5 % (20-40); Mean Corpuscular HGB Conc 31.8 g/dl (31.0-35.0); Mean Corpuscular Hemoglobin 26.7 pg (27.0-33.0); Mean Corpuscular Volume 84.1 fL (80-98); Mean Platelet Volume 8.7 fL (9.4-12.3); Monocytes Absolute Auto 0.8 X10*3/uL (0.1-1.2); Monocytes Percent Auto 5.5 % (2-11); Neutrophils Absolute Auto 9.5 X10*3/uL (2.0-8.3); Neutrophils Percent Auto 65.8 % (45-73); Platelet Count 349 X10*3/uL (160-400); Red Cell Distribution Width 15.8 % (11.0-16.0); White Blood Count 14.4 X10*3/uL (4.8-10.8)
[2020-10-15 16:53] LABS: Glucose Urine UA NEG (NEG); Leukocyte Esterase Urine NEG (NEG); Nitrite Urine NEG (NEG); PH 5.5 (5.0-8.0); Specific Gravity - Urine >= 1.030 (1.005-1.025); Urine Blood NEG (NEG); Urine Ketones 5 MG/DL (NEG); Urine Protein NEG (NEG-TRACE)
[2020-10-15 16:57] LABS: Alanine Aminotransferase 22 U/L (0-31); Albumin Level 3.9 g/dL (3.5-5.0); Alkaline Phosphatase 75 U/L (39-117); Anion Gap 12 (12-20); Aspartate Amino Transferase 18 U/L (5-31); Bilirubin Total 0.4 mg/dL (0.0-1.0); Blood Urea Nitrogen 17 mg/dL (9-16); C Reactive Protein 0.54 mg/dL (< or = 0.50); Calcium 8.5 mg/dL (8.4-10.2); Carbon Dioxide 24 mmol/L (22-29); Chloride 105 mmol/L (96-108); Estimated Glomerular Filt Rate > 60; Glucose Random 90 mg/dL (60-115); Potassium 4.1 mmol/L (3.3-5.1); Rheumatoid Factor < 15.0 IU/mL (<15.0); Sodium 137 mmol/L (135-145); Total Protein 6.7 g/dL (6.5-8.0)
[2020-10-15 17:00] LABS: Appearance Urine CLEAR; Color Urine YELLOW
[2020-10-15 17:18] LABS: Thyroid Stimulating Hormone 1.33 uIU/mL (0.32-4.0)
[2020-10-15 17:37] LABS: RBC Urine 0 /HPF (0); Squamous Epithelial Cell Urine TRACE /LPF; WBC Urine 0 /HPF (0-4)
[2020-10-15 17:51] LABS: Erythrocyte Sedimentation Rate 22 MM/HR (0-20)
[2020-10-16 05:42] LABS: Thyroglobulin Antibodies <1 IU/mL (< or = 1); Thyroid Peroxidase Antibodies 1 IU/mL (<9)
[2020-10-16 11:42] LABS: Complement C3 141 mg/dL (83-193)
[2020-10-16 13:36] LABS: PTT (LAC) Screen 29 sec (< OR = 40)
[2020-10-16 22:26] LABS: Anti Nuclear Antibody Pattern Nuclear, Homogeneous; Anti Nuclear Antibody Screen POSITIVE (NEGATIVE)
[2020-10-17 01:11] LABS: Cyclic Citrullinated Peptide <16 UNITS
[2020-10-17 13:56] LABS: Beta-2 Microglobulin, Serum 1.81 mg/L (< OR = 2.51)
[2020-10-17 23:51] LABS: Cardiolipin IgG Ab <14 GPL; Cardiolipin IgM Ab 12 MPL
[2020-10-21 13:57] LABS: Anti DNA DS Antibody 1 IU/mL; Antibody to SS-A Antigen <1.0 NEG AI (<1.0 NEG); Antibody to SS-B Antigen <1.0 NEG AI (<1.0 NEG); SM/Ribonucleoprotein Ab <1.0 NEG AI (<1.0 NEG); Smith Protein <1.0 NEG AI (<1.0 NEG)
== END 2020-10-15 14:43 | disposition home or self-care (01) ==
LOC: HO.LAB 14:42
PROVIDERS: PCP Internal Medicine; Visit Provider Student in an Organized Health Care Education/Training Program
DX: R76.8 Other specified abnormal immunological findings in serum (principal)
CPT/HCPCS: 36415; 73562; 80053; 81001; 82232; 84443; 85025; 85597; 85613; 85652; 85730; 86038; 86039; 86140; 86147; 86160; 86200; 86225; 86235; 86376; 86431; 86800; 99202

== ENCOUNTER 2020-10-21 10:49 | Outpatient (REF) | payer MEDICARE, SELFPAY ==
[2020-10-21 16:11] LABS: Erythrocyte Sedimentation Rate 31 MM/HR (0-20)
[2020-10-22 15:22] LABS: Immunoglobulin E 6 kU/L (<OR=114)
[2020-10-24 17:32] LABS: Histamine Plasma <1.5 ng/mL (< OR = 1.8)
[2020-10-31 09:31] LABS: Prostaglandin D2 Random Urine 181 ng/liter
== END 2020-10-21 10:50 | disposition home or self-care (01) ==
LOC: HO.LAB 10:49
PROVIDERS: PCP Internal Medicine; Visit Provider Internal Medicine Gastroenterology
DX: K86.89 Other specified diseases of pancreas (principal); D50.0 Iron deficiency anemia secondary to blood loss (chronic); R76.8 Other specified abnormal immunological findings in serum
CPT/HCPCS: 36415; 82785; 83088; 83520; 84150; 85652; 86003; Q3014

== ENCOUNTER 2020-10-23 10:30 | Outpatient (REF) | payer MEDICARE, SELFPAY ==
[2020-10-29 10:06] LABS: Fecal Fat Qualitative Normal (Normal)
[2020-10-31 16:22] LABS: Pancreatic Elastase-1 69 mcg/g
== END 2020-10-23 10:31 | disposition home or self-care (01) ==
LOC: HO.LNP 10:30
PROVIDERS: Visit Provider Internal Medicine Gastroenterology
DX: D50.0 Iron deficiency anemia secondary to blood loss (chronic) (principal); K86.89 Other specified diseases of pancreas; R76.8 Other specified abnormal immunological findings in serum; R10.11 Right upper quadrant pain
CPT/HCPCS: 82656; 82705

== ENCOUNTER 2020-10-24 09:00 | Outpatient (REF) | payer MEDICARE, SELFPAY ==
[2020-10-29 21:47] LABS: Hydroindolacetic Acid,5- 4.8 mg/24 h (<=6.0); Total Volume 1650 mL
[2020-10-30 19:36] LABS: Metanephrine, Free 24U 33 mcg/24 h (58-203); Normetanephrine, Free 24U 195 mcg/24 h (88-649); Total Metanephrine, Free 24U 228 mcg/24 h (182-739); Total Volume 24U 1650 mL
[2020-10-30 22:46] LABS: Coproporphyrin I, 24Hr 16.6 mcg/24 h (7.1-48.7); Coproporphyrin III, 24Hr 24.7 mcg/24 h (11.0-148.5); Heptacarboxylporphyrin, 24U 2.7 mcg/24 h (< OR = 3.3); Hexacarboxylporphryin, 24U 1.3 mcg/24 h (< OR = 10); Pentacarboxylporphrin, 24U 1.1 mcg/24 h (< OR = 4.6); Porphyrins, Total 24 Hr 65.5 mcg/24 h (35.0-210.7); Total Volume, Porphyrins 24Hr 1650 mL; Uroporphyrin III, 24Hr 2.1 mcg/24 h (0.7-7.4)
[2020-10-31 16:02] LABS: Creatinine 24Hr Urine 1139 mg/24 h; N-Methylhistamine, 24Hr Urine 133 mcg/g Cr (30-200); Total Volume 1650 mL
== END 2020-10-24 09:01 | disposition home or self-care (01) ==
LOC: HO.LNP 09:00
PROVIDERS: Visit Provider Internal Medicine Gastroenterology
DX: R76.8 Other specified abnormal immunological findings in serum (principal); K86.89 Other specified diseases of pancreas; D50.0 Iron deficiency anemia secondary to blood loss (chronic)
CPT/HCPCS: 81050; 82542; 83497; 83835; 84120

== ENCOUNTER → 2020-12-10 07:34 | Outpatient (BNVA) | payer MEDICARE, SELFPAY | PROVIDERS: PCP Internal Medicine; Visit Provider Internal Medicine | DX: Z13.89 Encounter for screening for other disorder (principal) | CPT/HCPCS: Q3014 ==

== ENCOUNTER → 2021-01-01 10:34 | Outpatient (REF) | payer MEDICARE, SELFPAY ==
--- NOTE | ~2021-01-01 | NM_ITS ---
EXAMINATION: NUCLEAR MEDICINE HEPATOBILIARY SCAN. CLINICAL INFORMATION: Right upper quadrant pain and nausea. Gallbladder has been surgically removed. COMPARISON: CT abdomen and pelvis 07/01/2020 TECHNIQUE: Allowing intravenous administration of 5 mCi of 99m Tc mebrofenin, imaging over the right upper quadrant was obtained up to 60 minutes. FINDINGS: There is normal hepatic uptake without any focal defects or enlargement. There is prompt visualization of common bile duct by 9 minutes and small bowel by 12 minutes consistent widely patent CBD. The gallbladder is not visualized consistent with previous cholecystectomy history. NM/NM hepatobiliary wo pharm IMPRESSION: Normal hepatic uptake. Widely patent CBD. Gallbladder has been surgically removed.
== END ==
LOC: HO.NUCMED 10:34
PROVIDERS: Visit Provider Internal Medicine Gastroenterology
DX: R10.11 Right upper quadrant pain (principal)
CPT/HCPCS: 78226; A9537

== ENCOUNTER 2021-01-08 07:37 | Outpatient (REF) | payer MEDICARE, SELFPAY ==
[2021-01-09 07:32] LABS: Cortisol 30 Minute 4.4 mcg/dL; Cortisol 60 Minute 6.4 mcg/dL; Cortisol Baseline 1.1 mcg/dL
[2021-01-09 22:06] LABS: Adrenocorticotropic Hormone 6 pg/mL (6-50)
== END 2021-01-08 07:38 | disposition home or self-care (01) ==
LOC: HO.MDS 07:37
PROVIDERS: PCP Internal Medicine; Visit Provider Internal Medicine
DX: E27.40 Unspecified adrenocortical insufficiency (principal)
CPT/HCPCS: 36415; 82024; 82533; 96374; 99212; J0834

== ENCOUNTER 2021-01-10 07:41 | Outpatient (REF) | payer MEDICARE, SELFPAY ==
[2021-01-10 08:25] LABS: Anion Gap 11 (12-20); Blood Urea Nitrogen 11 mg/dL (9-16); Calcium 8.1 mg/dL (8.4-10.2); Carbon Dioxide 24 mmol/L (22-29); Chloride 107 mmol/L (96-108); Estimated Glomerular Filt Rate > 60; Glucose Random 91 mg/dL (60-115); Sodium 138 mmol/L (135-145)
[2021-01-13 13:33] LABS: DHEA Sulfate 2 mcg/dL (19-231)
[2021-01-15 00:56] LABS: Adrenocorticotropic Hormone 5 pg/mL (6-50)
== END 2021-01-10 07:42 | disposition home or self-care (01) ==
LOC: HO.LAB 07:41
PROVIDERS: PCP Internal Medicine; Visit Provider Internal Medicine
DX: E27.40 Unspecified adrenocortical insufficiency (principal)
CPT/HCPCS: 36415; 80048; 82024; 82533; 82627

== ENCOUNTER → 2021-01-29 07:28 | Outpatient (BNVA) | payer MEDICARE, SELFPAY | PROVIDERS: Visit Provider Internal Medicine | CPT/HCPCS: Q3014 ==

== ENCOUNTER 2021-02-10 08:44 | Outpatient (REF) | payer MEDICARE, SELFPAY ==
[2021-02-10 09:49] LABS: MANUAL DIFF FLAG NO
[2021-02-10 09:53] LABS: Basophils Percent Auto 0.3 % (0-2); Eosinophils Absolute Auto 0.2 X10*3/uL (0.0-0.4); Eosinophils Percent Auto 1.7 % (0-4); Hematocrit 38.4 % (37-47); Hemoglobin 12.2 g/dl (12.0-16.0); Imm Gran Abs Auto 0.06 X10*3/uL (0.00-0.03); Imm Gran Pct Auto 0.5 % (0.0-0.4); Lymphocytes Absolute Auto 2.1 X10*3/uL (1.2-4.9); Lymphocytes Percent Auto 16.6 % (20-40); Mean Corpuscular HGB Conc 31.8 g/dl (31.0-35.0); Mean Corpuscular Hemoglobin 27.7 pg (27.0-33.0); Mean Corpuscular Volume 87.1 fL (80-98); Mean Platelet Volume 8.8 fL (9.4-12.3); Monocytes Absolute Auto 0.5 X10*3/uL (0.1-1.2); Monocytes Percent Auto 4.2 % (2-11); Neutrophils Absolute Auto 9.8 X10*3/uL (2.0-8.3); Neutrophils Percent Auto 76.7 % (45-73); Platelet Count 256 X10*3/uL (160-400); Red Blood Count 4.41 X10*6/uL (4.20-5.50); Red Cell Distribution Width 15.6 % (11.0-16.0); White Blood Count 12.7 X10*3/uL (4.8-10.8)
[2021-02-10 10:21] LABS: Iron 64 mcg/dL (30-160); Percent Iron Saturation 18 % (15-50); Total Iron Binding Capacity 346 mcg/dL (228-428); Unsaturated Iron Binding 282 ug/dL
[2021-02-10 10:38] LABS: Ferritin 47 ng/mL (10-250)
[2021-02-14 19:11] LABS: Soluble Transferrin Receptor 1.18 mg/L (0.76-1.76)
[2021-02-15 13:36] LABS: Metanephrine, Free <25 pg/mL (<=57); Normetanephrines, Free 42 pg/mL (<=148); Total Metanephrine, Free 42 pg/mL (<=205)
[2021-02-21 18:21] LABS: Trypsin 526.9 ng/mL (180.5-885.3)
== END 2021-02-10 08:45 | disposition home or self-care (01) ==
LOC: HO.LAB 08:44
PROVIDERS: PCP Internal Medicine; Visit Provider Internal Medicine Gastroenterology
DX: D50.0 Iron deficiency anemia secondary to blood loss (chronic) (principal); K86.89 Other specified diseases of pancreas; R76.8 Other specified abnormal immunological findings in serum
CPT/HCPCS: 36415; 82728; 83519; 83540; 83835; 84238; 85025; 99212

== ENCOUNTER → 2021-05-04 10:39 | Outpatient (BNVA) | payer OTHER, SELFPAY | PROVIDERS: PCP Internal Medicine; Visit Provider Internal Medicine ==

== ENCOUNTER → 2021-08-11 08:30 | Outpatient (BNVA) | payer OTHER, SELFPAY | PROVIDERS: PCP Internal Medicine; Visit Provider Internal Medicine Gastroenterology ==

== ENCOUNTER 2021-11-04 05:58 | Outpatient (REF) | payer OTHER, SELFPAY ==
[2021-11-04 08:02] LABS: Anion Gap 14 (12-20); Blood Urea Nitrogen 14 mg/dL (9-16); Calcium 9.4 mg/dL (8.4-10.2); Carbon Dioxide 25 mmol/L (22-29); Chloride 105 mmol/L (96-108); Estimated Glomerular Filt Rate > 60; Glucose Random 95 mg/dL (60-115); Potassium 4.3 mmol/L (3.3-5.1); Sodium 140 mmol/L (135-145)
== END 2021-11-04 05:59 | disposition home or self-care (01) ==
LOC: HO.LAB 05:58
PROVIDERS: PCP Internal Medicine; Visit Provider Internal Medicine
DX: E27.40 Unspecified adrenocortical insufficiency (principal); E24.9 Cushing's syndrome, unspecified
CPT/HCPCS: 36415; 80048

== ENCOUNTER 2021-11-16 07:35 | Outpatient (REF) | payer OTHER, SELFPAY ==
[2021-11-18 04:56] LABS: Cortisol 30 Minute 3.1 mcg/dL; Cortisol 60 Minute 4.3 mcg/dL; Cortisol Baseline 0.6 mcg/dL
[2021-11-18 19:07] LABS: Adrenocorticotropic Hormone <5 pg/mL (6-50)
== END 2021-11-16 07:36 | disposition home or self-care (01) ==
LOC: HO.MDS 07:35
PROVIDERS: Visit Provider Internal Medicine
DX: E27.40 Unspecified adrenocortical insufficiency (principal)
CPT/HCPCS: 36415; 82024; 82533; 96374; J0834

== ENCOUNTER → 2021-12-10 09:55 | Outpatient (BNVA) | payer OTHER, SELFPAY | PROVIDERS: PCP Internal Medicine; Visit Provider Internal Medicine | DX: Z13.89 Encounter for screening for other disorder (principal) ==

== ENCOUNTER 2022-05-11 15:42 | Outpatient (REF) | payer OTHER, SELFPAY ==
--- NOTE | ~2022-05-11 | XR_ITS ---
EXAMINATION: CR XR HAND AND WRIST BILATERAL CLINICAL INFORMATION: Pain. COMPARISON: None TECHNIQUE: 4 views each of the bilateral hands and wrists were obtained. FINDINGS: There is no acute fracture or dislocation. The joint spaces are unremarkable the carpal bones are normally aligned. The distal radius is intact bilaterally. There is nonacute deformity of the distal ulna with mild widening of the distal radial ulnar joint space and mild positive ulnar variance. The distal right ulna is intact. The soft tissues are unremarkable. XR/XR hand wrist LT IMPRESSION: 1. Nonacute deformity of the distal left ulna as detailed above could be secondary to old injury/surgery. Correlate with patient history. No other significant abnormality bilaterally.
--- NOTE | ~2022-05-11 | XR_ITS ---
EXAMINATION: CR XR HAND AND WRIST BILATERAL CLINICAL INFORMATION: Pain. COMPARISON: None TECHNIQUE: 4 views each of the bilateral hands and wrists were obtained. FINDINGS: There is no acute fracture or dislocation. The joint spaces are unremarkable the carpal bones are normally aligned. The distal radius is intact bilaterally. There is nonacute deformity of the distal ulna with mild widening of the distal radial ulnar joint space and mild positive ulnar variance. The distal right ulna is intact. The soft tissues are unremarkable. XR/XR hand wrist RT IMPRESSION: 1. Nonacute deformity of the distal left ulna as detailed above could be secondary to old injury/surgery. Correlate with patient history. No other significant abnormality bilaterally.
[2022-05-11 16:11] LABS: MANUAL DIFF FLAG NO
[2022-05-11 16:59] LABS: Basophils Absolute Auto 0.1 X10*3/uL (0.0-0.2); Basophils Percent Auto 0.7 % (0-2); Eosinophils Absolute Auto 0.2 X10*3/uL (0.0-0.4); Eosinophils Percent Auto 1.3 % (0-4); Hematocrit 39.6 % (37.0-47.0); Hemoglobin 12.7 g/dl (12.0-16.0); Imm Gran Abs Auto 0.05 X10*3/uL (0.00-0.03); Imm Gran Pct Auto 0.4 % (0.0-0.4); Lymphocytes Percent Auto 16.3 % (20-40); Mean Corpuscular HGB Conc 32.1 g/dl (31.0-35.0); Mean Corpuscular Hemoglobin 26.6 pg (27.0-33.0); Mean Platelet Volume 9.6 fL (9.4-12.3); Monocytes Absolute Auto 0.5 X10*3/uL (0.1-1.2); Monocytes Percent Auto 4.1 % (2-11); Neutrophils Absolute Auto 9.5 x10*3/uL (2.0-8.3); Neutrophils Percent Auto 77.2 % (45-73); Platelet Count 346 X10*3/uL (160-400); Red Blood Count 4.77 X10*6/uL (4.20-5.50); Red Cell Distribution Width 15.6 % (11.0-16.0); White Blood Count 12.3 X10*3/uL (4.8-10.8)
[2022-05-11 17:10] LABS: C Reactive Protein 4.44 mg/dL (< or = 0.50)
[2022-05-11 17:18] LABS: Erythrocyte Sedimentation Rate 49 MM/HR (0-20)
[2022-05-11 17:50] LABS: Appearance Urine Clear; Color Urine Dark Yellow; Glucose Urine UA Negative (Negative); Leukocyte Esterase Urine Moderate (2+) (Negative); Nitrite Urine Negative (Negative); PH 5.5 (5.0-9.0); Specific Gravity - Urine 1.015 (1.005-1.025); UMIC TRIGGER UA YES; Urine Blood Negative (Negative); Urine Ketones Negative (Negative); Urine Protein Negative (Neg-Trace)
[2022-05-11 18:09] LABS: Creatinine Urine 121.53 mg/dL; Total Protein Urine Random < 7 mg/dL (<12)
[2022-05-11 18:10] LABS: Iron 26 mcg/dL (30-160); Percent Iron Saturation 8 % (15-50); Total Iron Binding Capacity 339 mcg/dL (228-428); Unsaturated Iron Binding 313 ug/dL
[2022-05-11 18:30] LABS: Ferritin 96 ng/mL (10-250)
[2022-05-11 18:33] LABS: Bacteria Urine None Seen (None Seen); Hyaline Casts Urine 0-2 /LPF (0-2); RBC Urine 0-2 /HPF (0-2); WBC Urine 0-5 /HPF (0-5)
[2022-05-12 11:22] LABS: Complement C3 185 mg/dL (83-193)
[2022-05-13 12:07] LABS: IgA 289 mg/dL (47-310); IgG 1013 mg/dL (600-1640); IgM 233 mg/dL (50-300)
[2022-05-13 15:12] LABS: Transferrin 261 mg/dL (188-341)
[2022-05-13 21:36] LABS: Prot Elec - Albumin 3.4 g/dL (3.8-4.8); Prot Elec - Alpha1 0.4 g/dL (0.2-0.3); Prot Elec - Alpha2 0.9 g/dL (0.5-0.9); Prot Elec - Beta 1 0.5 g/dL (0.4-0.6); Prot Elec - Beta 2 0.5 g/dL (0.2-0.5); Prot Elec - Total Protein 6.7 g/dL (6.1-8.1)
[2022-05-13 23:26] LABS: Myeloperoxidase Antibody <1.0 AI; Proteinase 3 PR3 Antibodies <1.0 AI
[2022-05-14 12:51] LABS: Anti Nuclear Antibody Pattern Nuclear, Homogeneous; Anti Nuclear Antibody Screen POSITIVE (NEGATIVE)
[2022-05-14 13:56] LABS: Cardiolipin IgG Ab 10.3 GPL-U/mL; Cardiolipin IgM Ab 4.5 MPL-U/mL
[2022-05-14 17:57] LABS: Cyclic Citrullinated Peptide <16 UNITS
[2022-05-14 23:26] LABS: Beta-2 Glycoprotein IgA 3.2 U/mL (<20.0); Beta-2 Glycoprotein IgG 7.4 U/mL (<20.0); Beta-2 Glycoprotein IgM 4.4 U/mL (<20.0)
[2022-05-15 22:48] LABS: Hexagonal Phase Neutralization Negative (Negative); PTT (LAC) Screen 43 sec (<=40)
[2022-05-17 14:56] LABS: Anti DNA DS Antibody 1 IU/mL; Antibody to SS-A Antigen <1.0 NEG AI (<1.0 NEG); Antibody to SS-B Antigen <1.0 NEG AI (<1.0 NEG); SM/Ribonucleoprotein Ab <1.0 NEG AI (<1.0 NEG); Smith Protein <1.0 NEG AI (<1.0 NEG)
== END 2022-05-11 15:43 | disposition home or self-care (01) ==
LOC: HO.LAB 15:42
PROVIDERS: PCP Internal Medicine; Visit Provider Student in an Organized Health Care Education/Training Program
DX: M25.541 Pain in joints of right hand (principal); M25.542 Pain in joints of left hand; D64.9 Anemia, unspecified; R76.8 Other specified abnormal immunological findings in serum; R79.82 Elevated C-reactive protein (CRP)
CPT/HCPCS: 36415; 73110; 73130; 81001; 82550; 82728; 82784; 83540; 84156; 84165; 84466; 85025; 85597; 85613; 85652; 85730; 86021; 86038; 86039; 86140; 86146; 86147; 86160; 86200; 86225; 86235; 86334

== ENCOUNTER 2022-07-17 08:43 | Outpatient (REF) | payer OTHER, SELFPAY ==
[2022-07-17 08:56] LABS: MANUAL DIFF FLAG NO
[2022-07-17 09:26] LABS: Basophils Absolute Auto 0.1 X10*3/uL (0.0-0.2); Basophils Percent Auto 0.7 % (0-2); Eosinophils Absolute Auto 0.2 X10*3/uL (0.0-0.4); Eosinophils Percent Auto 1.7 % (0-4); Hematocrit 38.6 % (37.0-47.0); Hemoglobin 12.2 g/dl (12.0-16.0); Imm Gran Abs Auto 0.05 X10*3/uL (0.00-0.03); Imm Gran Pct Auto 0.5 % (0.0-0.4); Lymphocytes Absolute Auto 3.4 X10*3/uL (1.2-4.9); Lymphocytes Percent Auto 32.6 % (20-40); Mean Corpuscular HGB Conc 31.6 g/dl (31.0-35.0); Mean Corpuscular Hemoglobin 26.9 pg (27.0-33.0); Mean Platelet Volume 9.4 fL (9.4-12.3); Monocytes Absolute Auto 0.5 X10*3/uL (0.1-1.2); Monocytes Percent Auto 4.8 % (2-11); Neutrophils Absolute Auto 6.3 x10*3/uL (2.0-8.3); Neutrophils Percent Auto 59.7 % (45-73); Platelet Count 333 X10*3/uL (160-400); Red Blood Count 4.54 X10*6/uL (4.20-5.50); Red Cell Distribution Width 16.1 % (11.0-16.0); White Blood Count 10.5 X10*3/uL (4.8-10.8)
[2022-07-17 10:22] LABS: Alanine Aminotransferase 21 U/L (0-31); Albumin Level 3.9 g/dL (3.5-5.0); Alkaline Phosphatase 101 U/L (39-117); Anion Gap 17 (12-20); Aspartate Amino Transferase 18 U/L (5-31); Blood Urea Nitrogen 10 mg/dL (9-16); C Reactive Protein 4.13 mg/dL (< or = 0.50); Calcium 8.8 mg/dL (8.4-10.2); Carbon Dioxide 25 mmol/L (22-29); Chloride 103 mmol/L (96-108); Estimated Glomerular Filt Rate > 60; Glucose Random 118 mg/dL (60-115); Potassium 4.5 mmol/L (3.3-5.1); Sodium 140 mmol/L (135-145); Total Protein 6.7 g/dL (6.5-8.0)
[2022-07-17 10:50] LABS: Bilirubin Total 0.3 mg/dL (0.0-1.0)
[2022-07-17 11:18] LABS: Erythrocyte Sedimentation Rate 50 MM/HR (0-20)
[2022-07-17 12:45] LABS: Cortisol Random 6.5 ug/dL
[2022-07-21 14:48] LABS: Adrenocorticotropic Hormone 25 pg/mL (6-50)
== END 2022-07-17 08:44 | disposition home or self-care (01) ==
LOC: HO.LAB 08:43
PROVIDERS: Internal Medicine; PCP Internal Medicine; Visit Provider Student in an Organized Health Care Education/Training Program
DX: E27.40 Unspecified adrenocortical insufficiency (principal); U09.9 Post COVID-19 condition, unspecified
CPT/HCPCS: 36415; 80053; 82024; 82533; 85025; 85652; 86140

== ENCOUNTER 2022-07-20 11:57 | Outpatient (REF) | payer OTHER, SELFPAY ==
[2022-07-20 14:29] LABS: Lactate Dehydrogenase 215 U/L (122-220)
[2022-07-24 08:39] LABS: Aldolase 9.3 U/L (<=8.1)
== END 2022-07-20 11:58 | disposition home or self-care (01) ==
LOC: HO.LAB 11:57
PROVIDERS: PCP Internal Medicine; Visit Provider Student in an Organized Health Care Education/Training Program
DX: G72.9 Myopathy, unspecified (principal); M34.9 Systemic sclerosis, unspecified
CPT/HCPCS: 82085; 82550; 83615

== ENCOUNTER → 2022-09-01 13:34 | Outpatient (BNVA) | payer OTHER, SELFPAY | PROVIDERS: PCP Internal Medicine; Visit Provider Student in an Organized Health Care Education/Training Program | DX: R79.82 Elevated C-reactive protein (CRP) (principal) ==

== ENCOUNTER 2023-06-30 09:37 | Outpatient (REF) | payer OTHER, SELFPAY ==
[2023-06-30 09:59] LABS: MANUAL DIFF FLAG NO
[2023-06-30 10:26] LABS: Appearance Urine Clear; Color Urine Yellow; Glucose Urine UA Negative (Negative); Leukocyte Esterase Urine Negative (Negative); Nitrite Urine Negative (Negative); Urine Blood Negative (Negative); Urine Ketones Negative (Negative); Urine Protein Negative (Neg-Trace)
[2023-06-30 10:30] LABS: Basophils Absolute Auto 0.1 X10*3/uL (0.0-0.2); Eosinophils Absolute Auto 0.4 X10*3/uL (0.0-0.4); Eosinophils Percent Auto 4.1 % (0-4); Hematocrit 42.5 % (37.0-47.0); Hemoglobin 13.3 g/dl (12.0-16.0); Imm Gran Abs Auto 0.03 X10*3/uL (0.00-0.03); Imm Gran Pct Auto 0.3 % (0.0-0.4); Lymphocytes Absolute Auto 2.7 X10*3/uL (1.2-4.9); Lymphocytes Percent Auto 27.6 % (20-40); Mean Corpuscular HGB Conc 31.3 g/dl (31.0-35.0); Mean Platelet Volume 9.5 fL (9.4-12.3); Monocytes Absolute Auto 0.6 X10*3/uL (0.1-1.2); Platelet Count 381 X10*3/uL (160-400); Red Blood Count 5.31 X10*6/uL (4.20-5.50); Red Cell Distribution Width 17.2 % (11.0-16.0); White Blood Count 9.9 X10*3/uL (4.8-10.8)
[2023-06-30 10:58] LABS: Alanine Aminotransferase 11 U/L (0-31); Albumin Level 4.1 g/dL (3.5-5.0); Alkaline Phosphatase 79 U/L (39-117); Anion Gap 12 (12-20); Aspartate Amino Transferase 17 U/L (5-31); Bilirubin Total 0.3 mg/dL (0.0-1.0); Blood Urea Nitrogen 11 mg/dL (9-16); Calcium 9.3 mg/dL (8.4-10.2); Carbon Dioxide 27 mmol/L (22-29); Chloride 104 mmol/L (96-108); Estimated Glomerular Filt Rate > 60; Glucose Random 120 mg/dL (60-115); Sodium 139 mmol/L (135-145); Total Protein 7.4 g/dL (6.5-8.0)
[2023-06-30 11:06] LABS: Erythrocyte Sedimentation Rate 30 MM/HR (0-20)
[2023-06-30 11:07] LABS: Ferritin 57 ng/mL (10-250)
[2023-06-30 11:23] LABS: Folate 16.3 ng/mL (> or = 4.0); Vitamin B12 510 pg/mL (200-900)
[2023-07-01 13:17] LABS: IgA 270 mg/dL (47-310); IgG 802 mg/dL (600-1640); IgM 243 mg/dL (50-300)
[2023-07-04 21:13] LABS: Transglutaminase Ab IgG <1.0 U/mL
== END 2023-06-30 09:38 | disposition home or self-care (01) ==
LOC: HO.LAB 09:37
PROVIDERS: PCP Internal Medicine; Visit Provider Internal Medicine Gastroenterology
DX: G72.9 Myopathy, unspecified (principal); R79.82 Elevated C-reactive protein (CRP); D64.9 Anemia, unspecified; K86.89 Other specified diseases of pancreas; K75.81 Nonalcoholic steatohepatitis (NASH); G89.29 Other chronic pain; R10.33 Periumbilical pain; R30.0 Dysuria
CPT/HCPCS: 36415; 80053; 81003; 82550; 82607; 82728; 82746; 82784; 85025; 85652; 86140; 86364

== ENCOUNTER 2023-07-01 14:22 | Outpatient (REF) | payer OTHER, SELFPAY ==
[2023-07-02 07:30] LABS: Adenovirus F 40/41 Not Detected (Not Detect.); Astrovirus Not Detected (Not Detect.); Campylobacter Not Detected (Not Detect.); Cryptosporidium Not Detected (Not Detect.); Cyclospora cayetanensis Not Detected (Not Detect.); E. coli EAEC Not Detected (Not Detect.); E. coli EPEC Not Detected (Not Detect.); E. coli ETEC Not Detected (Not Detect.); E. coli STEC Not Detected (Not Detect.); Entamoeba histolytica Not Detected (Not Detect.); Giardia lamblia Not Detected (Not Detect.); Norovirus GI/GII Not Detected (Not Detect.); Plesiomonas shigelloides Not Detected (Not Detect.); Rotavirus A Not Detected (Not Detect.); Salmonella Not Detected (Not Detect.); Shigella sp./EIEC Not Detected (Not Detect.); Vibrio Not Detected (Not Detect.); Vibrio Cholerae Not Detected (Not Detect.); Yersinia enterocolitica Not Detected (Not Detect.)
[2023-07-02 07:31] LABS: Sapovirus Not Detected (Not Detect.)
[2023-07-05 16:43] LABS: Fecal Fat Qualitative Normal (Normal)
[2023-07-06 18:28] LABS: Lactoferrin, Fecal, Quant. 19.29 mcg/mL (<7.25)
[2023-07-10 02:19] LABS: Pancreatic Elastase-1 114 mcg/g
== END 2023-07-01 14:23 | disposition home or self-care (01) ==
LOC: HO.LNP 14:22
PROVIDERS: Visit Provider Internal Medicine Gastroenterology
DX: G72.9 Myopathy, unspecified (principal); R79.82 Elevated C-reactive protein (CRP); D64.9 Anemia, unspecified; K86.89 Other specified diseases of pancreas; K75.81 Nonalcoholic steatohepatitis (NASH); R19.7 Diarrhea, unspecified; K51.50 Left sided colitis without complications
CPT/HCPCS: 82656; 82705; 83631; 87329; 87507

== ENCOUNTER 2023-07-22 09:30 | Outpatient (REF) | payer OTHER, SELFPAY ==
[2023-07-25 11:01] LABS: CDiff Gene PCR NEGATIVE (Negative)
== END 2023-07-22 09:31 | disposition home or self-care (01) ==
LOC: HO.LAB 09:30
PROVIDERS: PCP Internal Medicine; Visit Provider Internal Medicine Gastroenterology
DX: D64.9 Anemia, unspecified (principal); K58.9 Irritable bowel syndrome, unspecified
CPT/HCPCS: 87493

== ENCOUNTER 2023-07-22 09:30 | Outpatient (AMB) | payer OTHER, SELFPAY ==
[2023-07-22 09:36] VITALS: BP 114/78; PULSE 98; BMI 50.8
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
== END 2023-07-22 10:43 | disposition home or self-care (01) ==
PROVIDERS: PCP Internal Medicine; Visit Provider Internal Medicine Gastroenterology
DX: D64.9 Anemia, unspecified (principal); K58.9 Irritable bowel syndrome, unspecified
CPT/HCPCS: 99214

== ENCOUNTER 2023-08-31 07:39 | Outpatient (AMB) | payer OTHER, SELFPAY ==
[2023-08-31 07:41] VITALS: BP 106/68; PULSE 66; BMI 50.5
--- NOTE | 2023-08-31 07:41 | A.OFFVIS_ITS ---
Intake Vital Signs 08/31/23 07:41 Height 5 ft 3 in Weight 285 lb 0.923 oz BMI 50.5 BP 106/68 Blood Pressure Location Lt brachial Position Sitting Pulse 66 Pulse Source Pulse Oximeter Intake Visit Reasons: F/U Adrenal insufficiency-confirmed Intake Note: Patient presents today for Adrenal Insufficiency follow up. Last seen by Dr. Downey on 06/14/2022. Caddie Supervisor Required: No Information Interpreted: non-clinical only Allergies NSAIDS (Non-Steroidal Anti-Inflamma [Nsaids] Allergy (Severe, Verified 08/31/23 08:01) DIFFICULTY BREATHING amitriptyline Allergy (Unknown, Verified 08/31/23 08:01) undesired response naproxen Allergy (Unknown, Verified 08/31/23 08:01) shortness of breath risperidone [Risperdal] Allergy (Unknown, Verified 08/31/23 08:01) undesired response topiramate [Topamax] Allergy (Unknown, Verified 08/31/23 08:01) undesired response Medication List - Last Reconciled 08/31/23 by Zach Sidhu MD blood sugar diagnostic (FreeStyle Lite Strips) As directed,DX: E16.2 - Hypoglycemia, To check blood pressure b.i.d., p.r.n., 90 day supply blood-glucose meter (FreeStyle Lite Meter kit) As directed,DX: E16.2 - Hypoglycemia, To check blood pressure b.i.d., p.r.n., budesonide ER 9 mg (3 x 3 mg) PO DAILY bupropion HCl bupropion HCl 100 mg tablet,12 hr sustained-release orally 2 times a day; cholecalciferol (vitamin D3) 125 mcg PO DAILY clonazepam (Klonopin) 1 mg PO BID lancets (FreeStyle Lancets) As directed,DX: E16.2 - Hypoglycemia, To check blood pressure b.i.d., p.r.n., 90 day supply metformin 500 mg PO DAILY methocarbamol 750 mg PO BEDTIME PRN multivitamin 1 tab PO DAILY pantoprazole 40 mg PO BID prednisone 5 mg PO DAILY pregabalin 225 mg PO BID sertraline 100 mg PO DAILY sodium,potassium,mag sulfates 17.5-3.13-1.6 gram (Suprep Bowel Prep Kit) DILUTE; drink 1/2 at 6-8 pm and half at 11 PM- 1AM syringe with needle Use with solucortef actovial for one dose HPI HPI Comments History of Present Illness Details 52 YO Female with no significant PMHx who is seen in F/U. 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 . The patient last saw Dr. Downey on 06/14/2022 She was initially evaluted by me in June 2020 for Hirsutism. She then began having recurrent episodes of hypoglycemia which were symptomatic and resulted in visits to the ED. A full lab panel was assessed and revealed adrenal insufficiency. She then admitted to taking high doses of Glucocorticoids, which she has been doing 6-8 times per year for 3-4 months at a time for the past 20 years. This has been prescribed due to Asthma. At the time of the labs she had been taking Prednisone 20 mg PO daily. She abruptly stopped this, and then began having episodes of hypoglycemia. She underwent a cosyntropin stim test 07/30/2020 which was inadequate with Cortisol not rising appropriately. This confirmed adrenal insufficiency, and s he was subsequently started on Prednisone 5 mg PO daily. She again failed her cosyntropin stim test 11/16/2021. Since that time she has had frequent flares of her Asthma and has had to increase her dose of Prednisone. She is currently on a high dose taper, and is using Prednisone 20 mg PO daily. She is seen today in F/U. Labs: Laboratory Tests 11/16/21 11/16/21 08:44 08:44 Cortisol Baseline 0.6 Cortisol 30 Minute 3.1 L Cortisol 60 Minute 4.3 L ACTH <5 L [facility] Medical History ZHEN positive Adrenal insufficiency Cushings syndrome GERD (gastroesophageal reflux disease) PTSD (post-traumatic stress disorder) Anxiety Depression Asthma Weight gain Hirsutism Irregular menses Fibromyalgia Chronic pain syndrome Spondylosis of lumbar region without myelopathy or radiculopathy Surgical History (Updated 07/22/23 @ 09:40 by DEANA Ly) History of surgery on lower extremity History of nasal septoplasty H/O wrist surgery H/O shoulder surgery Hx of cholecystectomy History of hernia surgery Gastric bypass status for obesity Hx of endoscopy History of colonoscopy Family History Father No problems noted. 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 Patient is currently on prednisone 5 mg q.d.. Plan is to talk to the patient about switching the prednisone to hydrocortisone 20 mg and attempt to taper slowly by 2.5 mg each week to 10 mg if tolerates. At that point, will check a.m. cortisol level after holding hydrocortisone for 24 hours to see if adrenal axis recovers. I did go over symptoms of adrenal insufficiency and made the patient aware to contact me should she experience this or episodes of hypoglycemia may be indicative. She also has Solu-Cortef rescue at home (2) Adrenal insufficiency: Code(s): E27.40 - Unspecified adrenocortical insufficiency Plan: See above plan Orders: Orders Cortisol Random 3 Months E24.9 - Lenox's syndrome, unspecified, E27.40 - Unspecified adrenocortical insufficiency Medications: New hydrocortisone 20 mg (4 x 5 mg) PO DAILY 120 tabs 4RF Discontinued prednisone Discontinued Reason: Doctor's Order 5 mg PO DAILY 30 tabs 4RF Coding Level of Care Code Est Pt Level 3 (12557) Diagnoses Cushings syndrome E24.9 Adrenal insufficiency E27.40
== END 2023-08-31 08:23 | disposition home or self-care (01) ==
PROVIDERS: PCP Internal Medicine; Visit Provider Internal Medicine Endocrinology, Diabetes & Metabolism
DX: E24.9 Cushing's syndrome, unspecified (principal); E27.40 Unspecified adrenocortical insufficiency
CPT/HCPCS: 99213

== ENCOUNTER → 2023-08-31 07:39 | Outpatient (BNVA) | payer OTHER, SELFPAY | PROVIDERS: Visit Provider Internal Medicine Endocrinology, Diabetes & Metabolism ==

== ENCOUNTER 2023-11-15 09:43 | Day surgery (SDC) | payer OTHER, SELFPAY ==
[2023-11-11 14:20] VITALS: BMI 50.7
--- NOTE | 2023-11-14 10:03 | P.CONAN_ITS ---
Documented by User: Natalie Marlow NP 11/14/23 10:05 HPI - Anesthesia Eval Consult details Narrative: 52yo F for Upper Endoscopy and Colonoscopy [facility] Active Problems Active Problems: All Active Problems (Updated 09/01/22 @ 17:16 by Umm Griffin MD) Greater trochanteric pain syndrome of both lower extremities (Acute) Weakness of both hips (Acute) Shoulder weakness (Acute) Myopathy (Acute) Post covid-19 condition, unspecified (Acute) Inflammatory arthritis (Acute) Long COVID (Acute) CRP elevated (Acute) Anemia (Acute) IBS (irritable bowel syndrome) (Acute) ZHEN positive (Acute) Pancreatic insufficiency (Acute) Adrenal insufficiency (Acute) Cushings syndrome (Acute) Anemia, iron deficiency (Acute) Night sweats (Acute) RUQ abdominal pain (Acute) Steatorrhea, idiopathic, adult (Acute) Sinus infection (Acute) Asthma exacerbation (Acute) Rhinitis (Acute) Contact with and (suspected) exposure to other viral communicable diseases (Acute) Moderate persistent asthma (Acute) Weight gain (Acute) Hirsutism (Acute) Irregular menses (Acute) Fibromyalgia (Acute) Chronic pain syndrome (Acute) Spondylosis of lumbar region without myelopathy or radiculopathy (Acute) Past Medical History Medical History ZHEN positive Adrenal insufficiency Cushings syndrome GERD (gastroesophageal reflux disease) PTSD (post-traumatic stress disorder) Anxiety Depression Asthma Weight gain Hirsutism Irregular menses Fibromyalgia Chronic pain syndrome Spondylosis of lumbar region without myelopathy or radiculopathy Family History Family History Father No problems noted. 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 Allergies Allergy/AdvReac Type Severity Reaction Status Date / Time NSAIDS (Non-Steroidal Allergy Severe DIFFICULTY Verified 11/15/23 12:56 Anti-Inflamma BREATHING [Nsaids] amitriptyline Allergy Unknown undesired Verified 11/15/23 12:56 response naproxen Allergy Unknown shortness Verified 11/15/23 12:56 of breath risperidone [Risperdal] Allergy Unknown undesired Verified 11/15/23 12:56 response topiramate [Topamax] Allergy Unknown undesired Verified 11/15/23 12:56 response Home Medications Medication Instructions Recorded Confirmed Last Taken Type multivitamin 1 tab PO DAILY 01/08/21 11/15/23 Unknown History bupropion HCl 100 mg tablet,12 hr See Rx Instructions PO BID 05/11/22 11/15/23 Unknown History sustained-release clonazepam 1 mg tablet (Klonopin) 1 mg PO BID 07/20/22 11/15/23 11/15/23 History methocarbamol 750 mg tablet 750 mg PO BEDTIME PRN muscle 07/20/22 11/15/23 Unknown History spasms\pain pantoprazole 40 mg tablet,delayed 40 mg PO BID 07/20/22 11/15/23 11/15/23 History release metformin 500 mg tablet 500 mg PO DAILY 07/22/23 11/15/23 Unknown History pregabalin 225 mg capsule 225 mg PO BID 07/22/23 11/15/23 11/15/23 History sertraline 100 mg tablet 100 mg PO DAILY 07/22/23 11/15/23 Unknown History cholecalciferol (vitamin D3) 125 125 mcg PO DAILY 08/31/23 11/15/23 Unknown History mcg (5,000 unit) capsule Exam Height,Weight and Vital Signs: Height 5 ft 3 in Weight 129.727 kg Assessment and Plan Assessment Anesthesia Assessment: Chart Reviewed Documented by User: Cm Gill MD 11/15/23 14:11 PMFSH Past Medical History Medical History ZHEN positive Adrenal insufficiency Cushings syndrome GERD (gastroesophageal reflux disease) PTSD (post-traumatic stress disorder) Anxiety Depression Asthma Weight gain Hirsutism Irregular menses Fibromyalgia Chronic pain syndrome Spondylosis of lumbar region without myelopathy or radiculopathy Family History Family History Father No problems noted. Mother History of high blood pressure History of asthma Family history of problems with anesthesia: No Surgical History Surgical History History of surgery on lower extremity History of nasal septoplasty H/O wrist surgery H/O shoulder surgery Hx of cholecystectomy History of hernia surgery Gastric bypass status for obesity Hx of endoscopy History of colonoscopy History of Problems with Anesthesia: No Social History Social History Household Members: Spouse Housing: House Alcohol intake: never Patient Tobacco Use Status: Never used Tobacco e-Cigarette/Vaping Use: Never Used service: No Current occupational status: disabled 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 Allergies Allergy/AdvReac Type Severity Reaction Status Date / Time NSAIDS (Non-Steroidal Allergy Severe DIFFICULTY Verified 11/15/23 12:56 Anti-Inflamma BREATHING [Nsaids] amitriptyline Allergy Unknown undesired Verified 11/15/23 12:56 response naproxen Allergy Unknown shortness Verified 11/15/23 12:56 of breath risperidone [Risperdal] Allergy Unknown undesired Verified 11/15/23 12:56 response topiramate [Topamax] Allergy Unknown undesired Verified 11/15/23 12:56 response Home Medications Medication Instructions Recorded Confirmed Last Taken Type multivitamin 1 tab PO DAILY 01/08/21 11/15/23 Unknown History bupropion HCl 100 mg tablet,12 hr See Rx Instructions PO BID 05/11/22 11/15/23 Unknown History sustained-release clonazepam 1 mg tablet (Klonopin) 1 mg PO BID 07/20/22 11/15/23 11/15/23 History methocarbamol 750 mg tablet 750 mg PO BEDTIME PRN muscle 07/20/22 11/15/23 Unknown History spasms\pain pantoprazole 40 mg tablet,delayed 40 mg PO BID 07/20/22 11/15/2311/14/24 History release metformin 500 mg tablet 500 mg PO DAILY 07/22/23 11/15/23 Unknown History pregabalin 225 mg capsule 225 mg PO BID 07/22/23 11/15/23 11/15/23 History sertraline 100 mg tablet 100 mg PO DAILY 07/22/23 11/15/23 Unknown History cholecalciferol (vitamin D3) 125 125 mcg PO DAILY 08/31/23 11/15/23 Unknown History mcg (5,000 unit) capsule Exam Airway Mallampati Class: II TM Dist: <=3cm Neck ROM: Full Loose/Missing/Broken Teeth: No Heart: ok Lungs: ok Assessment and Plan Assessment Anesthesia Assessment: Anesthesia Plan Discussed Final Anesthetic Review Family History of Problems with Anesthesia: No History of Problems with Anesthesia: No NPO: Yes ASA Class: III Final Preanesthetic Review: No Changes in Pt Med Stat, Meds/Allgs Chart Reviewed, Consent Obtained/Reviewed and Anes Risks/Benef Reviewed Patient Risk: Intermediate Procedure Risk: Intermediate Anesthetic Plan Anesthetic Plan: Agree w/ Assess. and Plan and TIVA Disposition: Standard PACU
[2023-11-15 12:50] VITALS: BMI 49.6
[2023-11-15 12:53] VITALS: BP 117/42; PULSE 78; RESP 16; TEMP 36.5; O2SAT 97
[2023-11-15 13:16] LABS: Glucose, Whole Blood 127 mg/dL (60-115)
[2023-11-15] MEDS: Lactated Ringers 1,000 ML 100 ML IVCONT (13:21)
--- NOTE | 2023-11-15 13:22 | MHC.SHP ---
Pre-Procedural Eval Section A - 24 Hr Update-Section A only Date of Service: 11/15/23 Section B - Complete if H&P > 30 days Chief Complaint: diarrhea Relevant Family History (Specify if Yes): No Relevant Social History: None Present Medications: see Short Stay Collaborative assessment Medical History: Significant History (ZHEN positive Adrenal insufficiency Cushings syndrome GERD (gastroesophageal reflux disease) PTSD (post-traumatic stress disorder) Anxiety Depression Asthma Weight gain Hirsutism Irregular menses Fibromyalgia Chronic pain syndrome Spondylosis of lumbar region without myelopathy or radiculopathy) History of Previous Operations: Relevant previous surgery/procedure and date(s) (History of surgery on lower extremity History of nasal septoplasty H/O wrist surgery H/O shoulder surgery Hx of cholecystectomy History of hernia surgery Gastric bypass status for obesity Hx of endoscopy History of colonoscopy) Allergies: Allergies Allergy/AdvReac Type Severity Reaction Status Date / Time NSAIDS (Non-Steroidal Allergy Severe DIFFICULTY Verified 11/15/23 12:56 Anti-Inflamma BREATHING [Nsaids] amitriptyline Allergy Unknown undesired Verified 11/15/23 12:56 response naproxen Allergy Unknown shortness Verified 11/15/23 12:56 of breath risperidone [Risperdal] Allergy Unknown undesired Verified 11/15/23 12:56 response topiramate [Topamax] Allergy Unknown undesired Verified 11/15/23 12:56 response Review of Systems Sugical H&P ROS: Negative: Constitution, Cardiovascular, Respiratory, Neurological, Psychiatric, Hem-Onc, Allergic/Immunologic, Gastrointestinal, Genitourinary, Musculoskeletal, Integumentary, Endocrine and Eyes/Ears/Nose/Throat Exam Surgical H&P Exam: Normal: HEENT, Normal: Heart, Normal: Lungs, Normal: Extremities, Normal: Abdomen, Normal: Skin and Normal: Neurological Plan Diagnosis/Plan: Unchanged I have reviewed the history and physical and performed a pertinent physical examination on my patient. No changes have occurred unless specified. Time Spent With Patient Time: Total time managing care of this patient today ____ minutes.
--- NOTE | 2023-11-15 14:44 | P.OP_ITS ---
Operative Note Operative Note Date of Service: 11/15/23 Narrative: Operative Information Procedure Description: EGD, Colonoscopy Indication: Anesthesia: MAC FLEXIBLE TRANSORAL UPPER GASTROINTESTINAL ENDOSCOPY AND COLONOSCOPY PROCEDURE NOTE UPPER ENDOSCOPY Consent: Indications for the procedure and potential complications of bleeding, perforation, reaction to medications and missed diagnosis were discussed with the patient and informed consent was obtained. Instrument: Olympus GIF H 190 J mid size upper endoscope Monitoring: Vital signs and clinical assessment, continuous EKG monitoring, Pulse oximetry, Carbon Dioxide monitoring and blood pressure monitoring were done throughout the procedure. Procedure: The patient was placed in the left lateral decubitis position and pre-procedure medications were administered and a bite block was placed. The endoscope was inserted into the mouth and advanced under direct vision to the third part of duodenum. A careful inspection was made as the upper endoscope was withdrawn including a retroflexed examination of the proximal stomach; Findings and interventions are described below. Findings: Larynx:normal Esophagus: GE junction at 37 cm, diaphragm hiatus at 37 cm, normal mucosa Stomach: Mild erythema, gastric sleeve noted. Biopsies were obtained. Grade 2 flap valve on retroflexed examination of the cardia. Duodenum: Normal bulb and descending duodenum, bx taken Intervention: Biopsies as noted above, COLONOSCOPY Instrument: Olympus variable stiffness pediatric scope 190L Colonoscopy Monitoring: Vital signs and clinical assessment, continuous EKG monitoring, Pulse oximetry, Carbon Dioxide monitoring and blood pressure monitoring were done throughout the procedure. Colon withdrawal time was 10 minutes. Procedure: The patient was placed in the left lateral decubitis position and pre-procedure medications were administered. After a digital rectal examination of the ano-rectum, the video colonoscope was inserted into the rectum and advanced through the colon to the cecum/TI. The colonoscope was slowly withdrawn in a retrograde panoramic fashion and the colon mucosa was carefully examined including a retroflexed view of the rectum. Findings and interventions are described below. Procedure Difficulty:moderate Findings: Random colon bx taken Terminal Ileum-normal, bx taken Cecum: 5-7 mm sessile polyp removed with cold forceps Ascending Colon: normal Transverse Colon - 6-8 mm sessile polyp removed with cold snare Descending Colon:normal Sigmoid Colon: normal Rectum: Retroflexion with small internal hemorrhoids, grade I Anorectum - normal Colon preparation: [place] Bowel Preparation Scale Right colon; 1-2 Transverse colon: 2 Left colon; 2 (0 = Unprepared colon segment with mucosa not seen due to solid stool that cannot be cleared. 1 = Portion of mucosa of the colon segment seen, but other areas of the colon segment not well seen due to staining, residual stool and/or opaque liquid. 2 = Minor amount of residual staining, small fragments of stool and/or opaque liquid, but mucosa of colon segment seen well. 3 = Entire mucosa of colon segment seen well with no residual staining, small fragments of stool or opaque liquid) Impression and Post Procedure Diagnosis: Endoscopy Findings: gastritis gastric sleeve Colonoscopy Findings: colon polyps internal hemorrhoids Plan: Await Pathology results Repeat Colonoscopy in 5 years due to fair prep on right or earlier if clinically indicated High fiber diet leaflet avoid straining at stool, epsom salts and sitz bath, anusol supps or cream Above findings were reviewed with the patient and relevant handouts were provided if indicated.
[2023-11-15 14:57] VITALS: BP 113/72; PULSE 95; RESP 16; TEMP 36.2; O2SAT 97
[2023-11-15 15:12] VITALS: BP 118/82; PULSE 73; RESP 16; TEMP 36.1; O2SAT 96
[2023-11-15 15:28] LABS: CDiff Gene PCR NEGATIVE (Negative)
[2023-11-19 15:48] LABS: Lactoferrin, Fecal, Quant. <6.25 mcg/mL (<7.25)
== END 2023-11-15 15:32 | disposition home or self-care (01) ==
PROVIDERS: PCP Internal Medicine; Visit Provider Internal Medicine Gastroenterology
PROC: (CPT 45385; principal; 2023-11-15 14:20)
DX: D64.9 Anemia, unspecified (principal); R93.3 Abnormal findings on diagnostic imaging of other parts of digestive tract; D12.0 Benign neoplasm of cecum; K63.5 Polyp of colon; K64.0 First degree hemorrhoids; K29.70 Gastritis, unspecified, without bleeding; K58.0 Irritable bowel syndrome with diarrhea; K21.9 Gastro-esophageal reflux disease without esophagitis; J45.909 Unspecified asthma, uncomplicated; Z79.899 Other long term (current) drug therapy; Z98.84 Bariatric surgery status
CPT/HCPCS: 45385; 45380; 43239; 82947; 83631; 87493; 88305; 88313; 88341; 88342; J1596; J2704

== ENCOUNTER → 2023-11-15 09:43 | Outpatient (BNV) | payer OTHER, SELFPAY | PROVIDERS: PCP Internal Medicine; Visit Provider Internal Medicine Gastroenterology | DX: D64.9 Anemia, unspecified (principal); K29.70 Gastritis, unspecified, without bleeding; Z90.3 Acquired absence of stomach [part of]; Z98.84 Bariatric surgery status; K58.0 Irritable bowel syndrome with diarrhea; D12.0 Benign neoplasm of cecum; K63.5 Polyp of colon; K64.0 First degree hemorrhoids | CPT/HCPCS: 43239; 45380; 45385 ==

== ENCOUNTER 2023-11-25 07:23 | Outpatient (REF) | payer OTHER, SELFPAY ==
[2023-11-25 08:37] LABS: Cortisol Random < 1.0 ug/dL
== END 2023-11-25 07:24 | disposition home or self-care (01) ==
LOC: HO.LAB 07:23
PROVIDERS: PCP Internal Medicine; Visit Provider Internal Medicine Endocrinology, Diabetes & Metabolism
DX: E24.9 Cushing's syndrome, unspecified (principal); E27.40 Unspecified adrenocortical insufficiency
CPT/HCPCS: 36415; 82533

== ENCOUNTER 2023-11-25 08:18 | Outpatient (AMB) | payer OTHER, SELFPAY ==
[2023-11-25 08:20] VITALS: BP 110/68; PULSE 91; BMI 52.3
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
== END 2023-11-25 09:41 | disposition home or self-care (01) ==
PROVIDERS: PCP Internal Medicine; Visit Provider Internal Medicine Gastroenterology
DX: R19.7 Diarrhea, unspecified (principal); K58.9 Irritable bowel syndrome, unspecified
CPT/HCPCS: 99213

== ENCOUNTER 2023-11-30 09:38 | Outpatient (AMB) | payer OTHER, SELFPAY ==
--- NOTE | 2023-11-30 09:43 | A.OFFVIS_ITS ---
Intake Vital Signs 11/30/23 09:44 Height 53 ft Weight 296 lb 11.875 oz BMI 0.5 BP 118/82 Blood Pressure Location Lt brachial Position Sitting Pulse 92 Pulse Source Pulse Oximeter Intake Visit Reasons: F/U Adrenal insufficiency-confirmed Intake Note: Patient present today for Adrenal insufficiency office visit. Clay Grinder Required: No Accompanied by: Spouse Allergies NSAIDS (Non-Steroidal Anti-Inflamma [Nsaids] Allergy (Severe, Verified 11/30/23 09:48) DIFFICULTY BREATHING amitriptyline Allergy (Unknown, Verified 11/30/23 09:48) undesired response naproxen Allergy (Unknown, Verified 11/30/23 09:48) shortness of breath risperidone [Risperdal] Allergy (Unknown, Verified 11/30/23 09:48) undesired response topiramate [Topamax] Allergy (Unknown, Verified 11/30/23 09:48) undesired response HPI HPI Comments History of Present Illness Details 52 YO Female with no significant PMHx who is seen in F/U. 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 . The patient last saw Dr. Downey on 06/14/2022 She was initially evaluted by me in June 2020 for Hirsutism. She then began having recurrent episodes of hypoglycemia which were symptomatic and resulted in visits to the ED. A full lab panel was assessed and revealed adrenal insufficiency. She then admitted to taking high doses of Glucocorticoids, which she has been doing 6-8 times per year for 3-4 months at a time for the past 20 years. This has been prescribed due to Asthma. At the time of the labs she had been taking Prednisone 20 mg PO daily. She abruptly stopped this, and then began having episodes of hypoglycemia. She underwent a cosyntropin stim test 07/30/2020 which was inadequate with Cortisol not rising appropriately. This confirmed adrenal insufficiency, and she was subsequently started on Prednisone 5 mg PO daily. She again failed her cosyntropin stim test 11/16/2021. Since that time she has had frequent flares of her Asthma and has had to increase her dose of Prednisone. She is currently on a high dose taper, and is using Prednisone 20 mg PO daily. She is seen today in F/U. Labs: Laboratory Tests 11/16/21 11/16/21 08:44 08:44 Cortisol Baseline 0.6 Cortisol 30 Minute 3.1 L Cortisol 60 Minute 4.3 L ACTH <5 L Was on HC 10 mg BID but felt better on prednisone 5mg recently held the hydrocortisone and a.m. cortisol level was undetectable [facility], [facility] Medical History ZHEN positive Adrenal insufficiency Cushings syndrome GERD (gastroesophageal reflux disease) PTSD (post-traumatic stress disorder) Anxiety Depression Asthma Weight gain Hirsutism Irregular menses Fibromyalgia Chronic pain syndrome Spondylosis of lumbar region without myelopathy or radiculopathy Surgical History History of surgery on lower extremity History of nasal septoplasty H/O wrist surgery H/O shoulder surgery Hx of cholecystectomy History of hernia surgery Gastric bypass status for obesity Hx of endoscopy History of colonoscopy Family History Father No problems noted. 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 Patient is currently on prednisone 5 mg q.d.. Plan is to have the patient continue the prednisone 5 mg at physiologic replacement for now. Retesting of the axis day placed in the future though the patient may have a permanent requirement for hydrocortisone. She mentioned that she may have steroid injections in the future I told her to speak to her primary care provider regarding monitoring her glucoses during these injections (2) Adrenal insufficiency: Code(s): E27.40 - Unspecified adrenocortical insufficiency Plan: See above plan Coding Level of Care Code Est Pt Level 3 (43745) Diagnoses Cushings syndrome E24.9 Adrenal insufficiency E27.40
[2023-11-30 09:44] VITALS: BP 118/82; PULSE 92
== END 2023-11-30 10:29 | disposition home or self-care (01) ==
PROVIDERS: PCP Internal Medicine; Visit Provider Internal Medicine Endocrinology, Diabetes & Metabolism
DX: E24.9 Cushing's syndrome, unspecified (principal); E27.40 Unspecified adrenocortical insufficiency
CPT/HCPCS: 99213

== ENCOUNTER → 2023-11-30 09:38 | Outpatient (BNVA) | payer OTHER, SELFPAY | PROVIDERS: PCP Internal Medicine; Visit Provider Internal Medicine Endocrinology, Diabetes & Metabolism ==

== ENCOUNTER 2024-05-30 08:14 | Outpatient (AMB) | payer OTHER, SELFPAY ==
--- NOTE | 2024-05-30 08:28 | MHC.OFFVIS ---
Vital Signs 05/30/24 08:29 Height 5 ft 3 in Weight 292 lb 8.854 oz BMI 51.8 BP 98/64 Blood Pressure Location Lt brachial Position Sitting Pulse 88 Pulse Source Pulse Oximeter Intake Visit Reasons: f/u adrenal insufficency-conf Intake Note: Patient present today for adrenal insufficiency follow up visit. 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 . She was initially evaluted by me in June 2020 for Hirsutism. She then began having recurrent episodes of hypoglycemia which were symptomatic and resulted in visits to the ED. A full lab panel was assessed and revealed adrenal insufficiency. She then admitted to taking high doses of Glucocorticoids, which she has been doing 6-8 times per year for 3-4 months at a time for the past 20 years. This has been prescribed due to Asthma. At the time of the labs she had been taking Prednisone 20 mg PO daily. She abruptly stopped this, and then began having episodes of hypoglycemia. She underwent a cosyntropin stim test 07/30/2020 which was inadequate with Cortisol not rising appropriately. This confirmed adrenal insufficiency, and she was subsequently started on Prednisone 5 mg PO daily. She again failed her cosyntropin stim test 11/16/2021. Since that time she has had frequent flares of her Asthma and has had to increase her dose of Prednisone. She is currently on a high dose taper, and is using Prednisone 20 mg PO daily. She is seen today in F/U. Labs: Laboratory Tests 11/16/21 11/16/21 08:44 08:44 Cortisol Baseline 0.6 Cortisol 30 Minute 3.1 L Cortisol 60 Minute 4.3 L ACTH <5 L Was on HC 10 mg BID but felt better on prednisone 5mg recently held the hydrocortisone and a.m. cortisol level was undetectable . Back on prednisone 5 mg . Feeling a little dizzy at times. Appetite is fair [facility] Medical History ZHEN positive Adrenal insufficiency Cushings syndrome GERD (gastroesophageal reflux disease) PTSD (post-traumatic stress disorder) Anxiety Depression Asthma Weight gain Hirsutism Irregular menses Fibromyalgia Chronic pain syndrome Spondylosis of lumbar region without myelopathy or radiculopathy Surgical History History of surgery on lower extremity History of nasal septoplasty H/O wrist surgery H/O shoulder surgery Hx of cholecystectomy History of hernia surgery Gastric bypass status for obesity Hx of endoscopy History of colonoscopy Family History Father No problems noted. 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 Patient is currently on prednisone 5 mg q.d.. Patient recently had undetectable cortisol while holding the steroids Plan is to continue the prednisone. It is possible future may have the patient hold the steroids retest the axis to see if recovery is possible. Did tell patient recheck blood pressure at home and report to us should be low. Will not adjust steroid dose currently but may need to increase prednisone if blood pressure is running low. Otherwise, about 6 months' time may consider retesting axis. Went over again with patient sick day rules about doubling steroid dose and possibly use of the hydrocortisone rescue vial if necessary Coding Level of Care Code Est Pt Level 3 (77114) Diagnoses Cushings syndrome E24.9
[2024-05-30 08:29] VITALS: BP 98/64; PULSE 88; BMI 51.8
== END 2024-05-30 08:52 | disposition home or self-care (01) ==
PROVIDERS: PCP Internal Medicine; Visit Provider Internal Medicine Endocrinology, Diabetes & Metabolism
DX: E24.9 Cushing's syndrome, unspecified (principal)
CPT/HCPCS: 99213

== ENCOUNTER → 2024-05-30 08:14 | Outpatient (BNVA) | payer OTHER, SELFPAY | PROVIDERS: PCP Internal Medicine; Visit Provider Internal Medicine Endocrinology, Diabetes & Metabolism ==

== ENCOUNTER 2024-06-15 08:55 | Outpatient (REF) | payer OTHER, SELFPAY ==
--- NOTE | ~2024-06-15 | XR_ITS ---
EXAMINATION: XR ABDOMEN KUB CLINICAL INDICATION: Constipation COMPARISON: MR abdomen on 08/26/2020 TECHNIQUE: AP view of the abdomen. FINDINGS: Multiple surgical clips in the left upper quadrant and additionally throughout the abdomen. The bowel gas pattern is normal with no evidence of ileus or obstruction. No unusual soft tissue calcifications are noted. XR/XR KUB IMPRESSION: Nonobstructive bowel gas pattern. Electronically signed by: María Rodriguez MD 06/15/2024 10:37 AM EDT
[2024-06-15 10:47] LABS: MANUAL DIFF FLAG NO
[2024-06-15 10:57] LABS: Basophils Absolute Auto 0.1 X10*3/uL (0.0-0.2); Basophils Percent Auto 0.9 % (0-2); Eosinophils Absolute Auto 0.2 X10*3/uL (0.0-0.4); Eosinophils Percent Auto 2.2 % (0-4); Hematocrit 40.3 % (37.0-47.0); Hemoglobin 12.9 g/dl (12.0-16.0); Imm Gran Abs Auto 0.03 X10*3/uL (0.00-0.03); Imm Gran Pct Auto 0.3 % (0.0-0.4); Lymphocytes Absolute Auto 2.2 X10*3/uL (1.2-4.9); Lymphocytes Percent Auto 19.6 % (20-40); Mean Corpuscular Hemoglobin 25.3 pg (27.0-33.0); Mean Corpuscular Volume 79.2 fL (80.0-98.0); Mean Platelet Volume 9.5 fL (9.4-12.3); Monocytes Absolute Auto 0.5 X10*3/uL (0.1-1.2); Monocytes Percent Auto 4.4 % (2-11); Neutrophils Percent Auto 72.6 % (45-73); Platelet Count 366 X10*3/uL (160-400); Red Blood Count 5.09 X10*6/uL (4.20-5.50); Red Cell Distribution Width 16.8 % (11.0-16.0)
[2024-06-15 11:44] LABS: Alanine Aminotransferase 14 U/L (0-31); Alkaline Phosphatase 82 U/L (39-117); Anion Gap 15 (12-20); Aspartate Amino Transferase 19 U/L (5-31); Bilirubin Total 0.3 mg/dL (0.0-1.0); Blood Urea Nitrogen 15 mg/dL (9-16); C Reactive Protein 2.18 mg/dL (< or = 0.50); Calcium 10.1 mg/dL (8.4-10.2); Carbon Dioxide 25 mmol/L (22-29); Chloride 105 mmol/L (96-108); Estimated Glomerular Filt Rate > 60; Glucose Random 119 mg/dL (60-115); Potassium 4.4 mmol/L (3.3-5.1); Sodium 141 mmol/L (135-145); Total Protein 7.4 g/dL (6.5-8.0)
== END 2024-06-15 08:56 | disposition home or self-care (01) ==
LOC: HO.XRAY 08:55
PROVIDERS: PCP Internal Medicine; Visit Provider Internal Medicine Gastroenterology
DX: K75.81 Nonalcoholic steatohepatitis (NASH) (principal); M19.90 Unspecified osteoarthritis, unspecified site; R79.82 Elevated C-reactive protein (CRP); K59.00 Constipation, unspecified
CPT/HCPCS: 36415; 74018; 80053; 85025; 86140

== ENCOUNTER 2024-06-15 08:55 | Outpatient (AMB) | payer OTHER, SELFPAY ==
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
[2024-06-15 09:14] VITALS: BP 116/63; PULSE 79; BMI 50.8
== END 2024-06-15 09:47 | disposition home or self-care (01) ==
LOC: HO.HGI 08:55
PROVIDERS: PCP Internal Medicine; Visit Provider Internal Medicine Gastroenterology
DX: R79.82 Elevated C-reactive protein (CRP) (principal); M19.90 Unspecified osteoarthritis, unspecified site; K59.00 Constipation, unspecified
CPT/HCPCS: 99214

== ENCOUNTER 2024-06-19 15:15 | Outpatient (REF) | payer OTHER, SELFPAY ==
[2024-06-27 21:03] LABS: Lactoferrin, Fecal, Quant. 13.02 mcg/mL (<7.25)
== END 2024-06-19 15:16 | disposition home or self-care (01) ==
LOC: HO.LNP 15:15
PROVIDERS: Visit Provider Internal Medicine Gastroenterology
DX: K51.50 Left sided colitis without complications (principal); M19.90 Unspecified osteoarthritis, unspecified site; R79.82 Elevated C-reactive protein (CRP)
CPT/HCPCS: 83631

== ENCOUNTER 2024-10-15 08:42 | Outpatient (AMB) | payer OTHER, SELFPAY ==
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
--- OUTSIDE RECORDS SUMMARY | 2024-10-15 09:14 | XMS_ITS | Clinical Summary ---
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 Name Role Phone Unavailable Primary Care Provider Unavailabl e Surgical History Surgery Date Site/Laterality Comments BARIATRIC SURGERY PROCEDURE: OH LAPS GSTRC RSTRICTIV PX LONGITUDINAL GASTRECTOMY OTHER SURGICAL HISTORY PROCEDURE: OH LAPS RPR PARAESPHGL HRNA INCL FUNDPLSTY W/O MESH Medical History Medical History Date Comments Depression DX:Depression Anxiety DX:Anxiety GERD (gastroesophageal reflux disease) DX:GERD (gastroesophageal reflux disease) Asthma DX:Asthma Hypoadrenalism (CMS/HCC) DX:Hypo adrenalism (HCC) Asthma DX:Asthma PTSD (post-traumatic stress disorder) DX:PTSD (post-traumatic stress disorder) Prediabetes DX:Prediabetes Depression DX:Depression Migraines DX:Migraines Sciatica DX:Sciatica GERD (gastroesophageal reflux disease) DX:GERD (gastroesophageal reflux disease) Fibromyalgia DX:Fibromyalgia Seasonal allergies DX:Seasonal a llergies Social History Tobacco Use Types Packs/Day Years Used Date Smoking Tobacco: Never Smokeless Tobacco: Never Alcohol Use Standard Drinks/Week Comments No 0 (1 standard drink = 0.6 oz pur e alcohol) Comments Unknown Sex and Gender Information Value Date Recorded Sex Assigned at Not on file Legal Sex Female 1:27 PM EST Gender Identity Not on file Sexual Orientation Not on file Obstetrics History Plan of Treatment Health Maintenance Due Date Last Done Comments Breast Cancer Screening 1970 DTaP,Tdap,and Td Vaccines (1 - Tdap) 12/28/1990 Hepatitis B Vaccines (1 of 3 - 19+ 3-dose series) 12/28/1990 Cervical Cancer Screening: P ap Smear 12/28/1992 Pneumococcal Vaccine: 50+ Ye ars (1 of 1 - PCV) 12/28/2021 Zoster Vaccines (1 of 2) 12/28/2021 COVID-19 Vaccine ( - 2023-2 5 season) 2024 Influenza Vaccine (#1) 2024 HIB Vaccines Aged Out No longer eligi ble based on patient's age to complete this topic HPV Vaccines Aged Out No longer eligi ble based on patient's age to complete this topic Hepatitis A Vaccines Aged Out No long er eligible based on patient's age to complete this topic IPV Vaccines Aged Out No longer eligi ble based on patient's age to complete this topic MMR Vaccines Aged Out No longer eligi ble based on patient's age to complete this topic Meningococcal ACWY Vaccine Aged Out N o longer eligible based on patient's age to complete this topic Meningococcal B Vacine Aged Out No lo nger eligible based on patient's age to complete this topic Pneumococcal Vaccine: Pediat rics (0 to 5 Years) and At-Risk Patients (6 to 64 Years) Aged Out No longer eligible b ased on patient's age to complete this topic RSV Immunization Patients Un dalia 20 months Aged Out No longer eligible b ased on patient's age to complete this topic Varicella Vaccines Aged Out No longer eligible based on patient's age to complete this topic
--- OUTSIDE RECORDS SUMMARY | 2024-10-15 09:14 | XMS_ITS | Patient Health Record ---
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
--- OUTSIDE RECORDS SUMMARY | 2024-10-15 09:15 | XMS_ITS | Data Portability ---
Author Organization [employer] [facility] [address] [employer] Address [address] [place] [address] Assessment Encounter Date Assessment Date Assessment LastModified by Organization Details LastModified Time 04/18/2024 04/18/2024 Patient was seen in the office today for nausea. Reviewed history regarding recent illness, medications, symptoms, and physical exam. Studies ordered as below. Discussed plan with , who expresses understanding . Follow up as noted below. [email or web address] Not available 04/18/2024 20:10:07 Plan of Treatment Reminders Order Date Submit Date Provider Last Modified By Organization Details Last Modified Time Details Appointments None recorded. Lab None recorded. Referral orthopedic surgeon referral 2024 025 [email or web address] Not available 12:29:24 Procedures None recorded. Surgeries None recorded. Imaging None recorded. Medication Orders tizanidine 4 mg tablet 2024 025 [id number], [address] [place], [address], 5 12:08:21 albuterol sulfate 2.5 mg/3 mL (0.083 %) solution for nebulizatio n 2024 025 [facility], [address] [place], [address], 5 11:44:30 benzonatate 200 mg capsule 2024 025 [facility], [address] [place], [address], 5 11:44:45 albuterol sulfate HFA 90 mcg/actuati on aerosol inhaler 2024 025 [email or web address] [facility], [address] [place], [address], 5 13:55:51 doxycycline hyclate 100 mg capsule 2024 025 [facility], [address] [place], [address], 5 11:45:33 Zofran 4 mg tablet 2023 024 [facility], [address] [place], [address], 11:46:16 Patient TargetsNo targets recorded. Patient Instructions Encounter Date Encounter Id Patient Instructions Last Modified By Organization Details Last Modified Time 04/18/2024 [id number] nausea and vomiting: care instructions Not available 04/18/2024 20:43:05 diarrhea: care instructions Not available 04/18/2024 20:43:05 gastroenteritis: care instructions Not available 04/18/2024 20:43:21 Try small amount s of clear liquids frequently. If vomiting occurs, wait 30-60 minutes before trying clear liquids again. Once you are able to tolerate clear liquids for at least 6 hours without vomiting, you can advance to a soft diet consisting of foods such as bananas, rice, applesauce, toast, crackers, and other foods rich in carbohydrates and low on fats and spices. If the diet is tolerated for 12-24 hours, you can slowly add other foods to your diet. If vomiting occurs, you should go back to clear liquids only and work your way back to a normal diet as outlined above. If much worse, you should seek treatment immediately. Take 1 OTC Immodium after each loose bowel movement. No more than 4 tablets a day. [email or web address] Not available 04/18/2024 20:10:23 08/17/2024 [id number] Aerochamber How to use the Aerochamber Attach the inhaler to the chamber [place] 2 puffs in to the chamber Put the chamber in your mouth with you lips closed around it Take 3 separate breaths from the chamber. Don't breath into the chamber. [email or web address] Not available 08/17/2024 12:18:13 08/25/2024 [id number] shoulder pain: care instructions [email or web address] Not available 08/25/2024 12:08:19 Reason for Referral Orthopedic Surgeon Referral for Pain of left shoulder joint Referring Physician: Valentino Hackett, Urgent Care, Encounter Date: 08/25/2024 Problems Name Problem SNOMED Code Status Onset Date Resolution Date Notes Provider Name and Address Organization Details Recorded Time Acute gastroenteriti s 83949755 Active 2023 Abi Palomares NP [address] [place], [address] [facility] - [facility] 4 20:41:19 Diabetes mellitus 98816922 Active Heather Elías null, PA - [facility] 5 11:38:12 Depressive disorder 26644501 Active Heather Elías null, PA - [facility] 5 11:38:20 Anxiety 12946541 Active Heather Elías null, PA - [facility] 5 11:38:26 Adrenal medullary insufficiency 14596344 Active Heather Elías null, PA - [facility] 5 11:38:47 Irritable bowel syndrome 13030921 Active Heather Elías null, PA - [facility] 5 11:38:53 Fibromyalgia 671657496 Active Heather Elías null, PA - [facility] 5 11:39:13 Pain 34157421 Active Yusra O'Drew null, PA - [facility] 5 11:47:57 Problem Notes None recorded. Medical Equipment None Reported. Allergies Allergen ID Allergen Name Allergen Category Reaction Reaction Severity Criticality Documentation Date Start Date Code Code System Note Provider Name and Address Organization Details Recorded Time 9350172 amitripty line medicatio n Not available Not available Not available 08/17/2024 704 [facility] Heather crane, PA - [facility] 11:37:23 6791885 Risperdal medicatio n Not available Not available Not available 08/17/2024 65886 8 RxNorm Heather crane, PA - [facility] 11:37:43 [id number] Topamax medicatio n Not available Not available Not available 08/17/2024 56759 3 RxNorm Heather crane, PA - [facility] 11:37:49 Medications Name Sig Start Date Stop Date Status Note LastModified by Organization Details LastModified Time quetiapin e 25 mg tablet TAKE 1 TO 2 TABLETS BY MOUTH AT BEDTIME 08/25 completed Not Available Not Available Not Available hydrocort isone 5 mg tablet TAKE 4 TABLETS BY MOUTH EVERY DAY 08/25 completed Not Available Not Available Not Available metformin 500 mg tablet TAKE 1 TABLET BY MOUTH TWICE A DAY active Not Available Not Available No t Available cromolyn 100 mg/5 mL oral concentra te TAKE 200 MG (10 ML) ORALLY 4 TIMES A DAY FOR 30 DAYS 04/18 completed Not Available Not Available Not Available doxycycli ne hyclate 100 mg capsule Take 1 capsule twice a day by oral route as directed for 10 days, for asthmati c bronchit is. 08/25 completed Not Available Not Available Not Available tizanidin e 2 mg tablet TAKE 1 TABLET BY MOUTH EVERYDAY AT BEDTIME 08/25 completed Not Available Not Available Not Available albuterol sulfate 2.5 mg/3 mL (0.083 %) solution for nebulizat ion Inhale 3 mL by nebuliza tion route. 08/25 completed Billable unit is always one. Units are not the dose. Not Available Not Available Not Available tizanidin e 4 mg tablet Take 1 tablet every day by oral route at bedtime, for pain, this medicati on makes you sleepy. 2024 active Not Available Not Available Not Avai lable benzonata te 200 mg capsule Take 1 capsule 3 times a day by oral route as needed for 7 days, for coughing . 08/25 completed Not Available Not Available Not Available ondansetr on HCl 4 mg tablet TAKE 2 TABLETS TWICE A DAY BY ORAL ROUTE NEEDED FOR 3 DAYS. 08/25 completed Not Available Not Available Not Available sertralin e 100 mg tablet TAKE 2 TABLETS BY MOUTH EVERY DAY active Not Available Not Available No t Available prednison e 5 mg tablet TAKE 1 TABLET BY MOUTH EVERY DAY active Not Available Not Available No t Available clonazepa m 1 mg tablet TAKE 1 TABLET BY MOUTH TWICE A DAY NEEDED.M AY TAKE AN ADDITION AL TAB NEEDED FOR SEVERE ANXIETY active Not Available Not Available No t Available metronida zole 500 mg tablet TAKE 1 TABLET BY MOUTH 3 TIMES A DAY FOR 14 DAYS 04/18 completed Not Available Not Available Not Available tramadol 50 mg tablet TAKE 1 TABLET BY MOUTH EVERY 6 HOURS NEEDED active Not Available Not Available No t Available bupropion HCl SR 100 mg tablet,12 hr sustained -release TAKE 1 TABLET BY MOUTH TWICE A DAY active Not Available Not Available No t Available methocarb latesha 750 mg tablet TAKE 2 TABLETS BY MOUTH EVERY 6 HOURS NEEDED 08/25 completed Not Available Not Available Not Available pantopraz ole 40 mg tablet,de layed release TAKE 1 TABLET BY MOUTH TWICE A DAY active Not Available Not Available No t Available diphenhyd ramine 25 mg tablet TAKE 1-2 TABLETS BY MOUTH AT BEDTIME NEEDED FOR SLEEP 08/25 completed Not Available Not Available Not Available Advair Diskus 500 mcg-50 mcg/dose powder for inhalatio n INHALE 1 PUFF 2 TIMES A DAY -STOP TRELEGY 08/25 completed Not Available Not Available Not Available zaleplon 5 mg capsule TAKE 1 CAPSULE BY MOUTH EVERY NIGHT AT BEDTIME NEEDED FOR SLEEP 08/25 completed Not Available Not Available Not Available budesonid e DR - ER 3 mg capsule,d elayed,ex tended release TAKE 3 CAPSULES (9MG) BY MOUTH DAILY active Not Available Not Available No t Available methylpre dnisolone 4 mg tablets in a dose pack TAKE 6 TABLETS ON DAY 1 DIRECTED ON PACKAGE AND DECREASE BY 1 TAB EACH DAY FOR A TOTAL OF 6 DAYS 04/18 completed Not Available Not Available Not Available albuterol sulfate HFA 90 mcg/actua tion aerosol inhaler Inhale 2 puffs 3 times a day by inhalati on route as directed for 7 days, for asthmati c bronchit is. 2024 active Not Available Not Available Not Elías hidalgo dicyclomi ne 10 mg capsule TAKE 1 CAPSULE BY MOUTH THREE TIMES A DAY 08/25 completed Not Available Not Available Not Available Novolog FlexPen U-100 Insulin aspart 100 unit/mL (3 mL) subcutane ous BELOW THE SKIN INJECT 2-8 UNITS 3 TIMES DAILY BEFORE MEALS NEEDED PER SLIDING SCALE INSTRUCT IONS 08/25 completed Not Available Not Available Not Available cyclobenz aprine 5 mg tablet TAKE 1 TABLET 3 TIMES DAILY NEEDED FOR MUSCLE SPASMS.D O NOT DRIVE WHILE TAKING THIS MED 08/25 completed Not Available Not Available Not Available pregabali n 225 mg capsule TAKE 1 CAPSULE BY MOUTH TWICE A DAY active Not Available Not Available No t Available BD Ultra-Fin e Short Pen Needle 31 gauge x 5/16 USE 3 TIMES DAILY TO ADMINIST ER INSULIN 08/25 completed Not Available Not Available Not Available quetiapin e 50 mg tablet TAKE 1 TABLET BY MOUTH EVERY NIGHT AT BEDTIME NEEDED FOR SLEEP active Not Available Not Available No t Available mesalamin e ER 0.375 gram capsule,e xtended release 24 hr TAKE 4 CAPSULES (1.5 G) BY MOUTH EVERY MORNING active Not Available Not Available No t Available Solu-José Miguel ef Act-O-Via l (PF) 100 mg/2 mL solution for injection TAKE 100 MG (2 ML) INTRAMUS CULARLY ONCE 30 DAYS NEEDED FOR UNABLE TO TOLERATE BY MOUTH active Not Available Not Available No t Available sodium,po tassium,m ag sulfates 17.5 gram-3.13 gram-1.6 gram oral soln DILUTE DRINK 1/2 AT 6-8 PM AND HALF AT 11 PM- 1AM 08/25 completed Not Available Not Available Not Available OneTouch Verio test strips USE TO TEST SUGARS TWICE DAILY FOR NIDDM (ICD10 E11.65) active Not Available Not Available No t Available Spiriva Respimat 2.5 mcg/actua tion solution for inhalatio n INHALE 2 PUFFS EVERY DAY 08/25 completed Not Available Not Available Not Available Movantik 12.5 mg tablet PLEASE SEE ATTACHED FOR DETAILED DIRECTIO NS 08/25 completed Not Available Not Available Not Available Rexulti 1 mg tablet TAKE 1 TABLET BY MOUTH ONCE A DAY -- START AFTER FINISHIN G THE 0.5MG TABS active Not Available Not Available No t Available Rexulti 0.5 mg tablet TAKE 1 TABLET BY MOUTH ONCE A DAY FOR 2 WEEKS THEN START THE 1MG TABS active Not Available Not Available No t Available OneTouch Verio Flex Meter CHECK SUGAR TWICE A DAY active Not Available Not Available No t Available OneTouch Delica Plus Lancet 33 gauge USE TWICE DAILY TO CHECK BLOOD SUGAR active Not Available Not Available No t Available Mounjaro 2.5 mg/0.5 mL subcutane ous pen injector INJECT 1 PEN (2.5 MG) SUBCUTAN EOUSLY ONE TIME PER WEEK 04/18 completed Not Available Not Available Not Available Vitals Date Recorded Body height Body mass index (BMI) Body weight Oxygen saturation Oxygen saturation in Arterial blood by Pulse oximetry Heart rate Respiratory rate Body temperature Systolic blood pressure Diastolic blood pressure Provider Name and Address Organization Details Last Updated DateTime 4 160.02 cm 52.6 kg/m2 572729. 93 g 99 % 99 % 91 /min 16 /min 98.1 [degF] 117 mm[Hg] 80 mm[Hg] iNnfa Bailey PA - [facility] 4 20:16:44 Date Recorded Body height Body mass index (BMI) Body weight Oxygen saturation Oxygen saturation in Arterial blood by Pulse oximetry Heart rate Respiratory rate Body temperature Systolic blood pressure Diastolic blood pressure Provider Name and Address Organization Details Last Updated DateTime 5 160.02 cm 52.6 kg/m2 144901. 93 g 100 % 100 % 94 /min 18 /min 98.4 [degF] 105 mm[Hg] 75 mm[Hg] Heather Mckinley PA - [facility] 5 11:36:35 Date Recorded Body height Body mass index (BMI) Body weight Oxygen saturation Oxygen saturation in Arterial blood by Pulse oximetry Heart rate Body temperature Systolic blood pressure Diastolic blood pressure Provider Name and Address Organization Details Last Updated DateTime 5 160.02 cm 50.5 kg/m2 215802. 83 g 97 % 97 % 95 /min 98.1 [degF] 115 mm[Hg] 81 mm[Hg] Yusra Raphael PA - [facility] 11:42:35 Social History Question Answer Notes LastModified by Organizat ion Details LastModified Time Tobacco Smoking Status Never Smoker Yusra Donavon crane [place] - [facility] 08/25/2024 11:48:23 What Is Your Level Of Alcohol Consumption? None Information not available 08/25/2024 Are You Currently Employed? No Information not available 08/25/2024 Have You Had A Flu Shot This Season? Yes Information not available 08/25/2024 If No, Would You Like A Flu Shot Today? A/P Information not available 08/25/2024 What Is Your Relationship Status? Information not available 08/25/2024 Are You Passively Exposed To Smoke? No Information no t available 08/25/2024 Have You Recently Traveled Abroad? No Information not available 08/25/2024 Sex: Unknown Functional Status None recorded. Mental Status None recorded. Family History Relationship Description Onset Age of this Age Resolved Age Notes LastModified by Organization Details LastModified Time Father No current problems or disability [email or web address] Not available 08/17 11:39:15 Mother No current problems or disability [email or web address] Not available 08/17 11:39:15 Medical History No medical history recorded. Gynecological History Statement/Question Response LMP N/A Obstetrics History GPAL:G 0 P 0 0 0 0 Immunizations Vaccine Type Date Status Note Provider Nam e and Address Organization Details Recorded Time Influenza, MDCK, quadrivalent, PF 06/15/2021 completed Ninfa Bailey null, PA - [facility] 04/18/2024 20:17:30 Influenza, MDCK, quadrivalent, PF 06/30/2022 completed Ninfa Bailey null, PA - [facility] 04/18/2024 20:17:30 COVID-19, mRNA, LNP-S, PF, 30 mcg/0.3 mL dose 11/01/2020 completed Ninfa Bailey null, PA - [facility] 04/18/2024 20:17:30 COVID-19, mRNA, LNP-S, PF, 30 mcg/0.3 mL dose 11/22/2020 completed Ninfa Bailey null, PA - [facility] 04/18/2024 20:17:30 COVID-19, mRNA, LNP-S, PF, 30 mcg/0.3 mL dose 06/15/2021 completed Ninfa Bailey null, PA - [facility] 04/18/2024 20:17:30 COVID-19, mRNA, LNP-S, PF, 30 mcg/0.3 mL dose, mansoor-sucrose 01/05/2022 completed Ninfa Bailey null, PA - [facility] 04/18/2024 20:17:30 COVID-19, mRNA, LNP-S, bivalent, PF, 30 mcg/0.3 mL dose 06/30/2022 completed Ninfa Bailey null, PA - [facility] 04/18/2024 20:17:30 Influenza, split virus, quadrivalent, PF 05/28/2016 completed Ninfa Bailey null, PA - [facility] 04/18/2024 20:17:30 Influenza, split virus, quadrivalent, PF 06/20/2018 completed Ninfa Bailey null, PA - [facility] 04/18/2024 20:17:30 Influenza, split virus, quadrivalent, PF 07/03/2020 completed Ninfa Bailey null, PA - [facility] 04/18/2024 20:17:30 COVID-19, mRNA, LNP-S, PF, mansoor-sucrose, 30 mcg/0.3 mL 05/26/2024 completed Heather Elías null, PA - [facility] 08/17/2024 11:37:02 Influenza, split virus, trivalent, PF 05/26/2024 completed Heather Elías null, PA - [facility] 08/17/2024 11:37:02 Past Encounters Encounter ID Performer Location Encounter Start Date Encounter Closed Date Diagnosis/Indication Diagnosis SNOMED-CT Code Diagnosis ICD10 Code Diagnosis Note [id number] [address] [address] [address] 03/11/2022 08:20:20 03/11/2022 09:08:16 [id number] [address] [address] [address] 07/26/2021 16:39:35 07/26/2021 18:39:[id number] [address] 08/27/2018 17:50:03 08/27/2018 18:45:[id number] [address] 01/15/2018 15:20:20 01/15/2018 15:49:11 [id number] Abi Palomares NP [address] [address] 04/18/2024 18:48:41 04/18/2024 20:44:15 Acute gastroenteritis 84385081 K52.9 If your doctor prescribed antibiotic s, take them as directed. Do not stop taking them just because you feel better. You need to take the full course of antibiotic s.Drink plenty of fluids to prevent dehydratio n. Choose water and other clear liquids until you feel better. If you have kidney, heart, or liver disease and have to limit fluids, talk with your doctor before you increase your fluid intake.Dri nk fluids slowly, in frequent, small amounts, because drinking too much too fast can cause vomiting.W hen you feel like eating, start with small amounts. Avoid spicy, hot, or high-fat foods, and do not drink alcohol or caffeine for a day or two. Do not drink milk or eat ice cream until you are feeling better. [id number] FELIX TUCKER MD [address] [address] [address] 08/17/2024 11:12:33 08/17/2024 12:57:12 Persistent cough 579240963 R05.3 CoughBlack Elderberry Syrup:1-2 tsp 2-3 times a day for 5 days as needed for coughing.S ambucol Black Elderberry Original Syrup (available at [facility] )Harmony Herbs Black Elderberry Syrup, 5.4-Ounce Bottle (available at [employer] or [employer]) Use a cool mist humidifier in the room that you sleep to add moisture to the air, which should soothe the airways and help loosen any mucus that may be present. Asthmatic bronchitis 405 214614 J45.909 [id number] Valentino Hackett [place] [address] [address] 08/25/2024 11:18:21 08/25/2024 12:29:24 Pain of left shoulder joint 2768975048 2636741 M25.512 msk pain v OA v internal shoulder joint pathology recommend ortho referral Rx mm relaxerUse OTC ibuprofen as directed on the bottle prn pain. Take with food and do not mix with other NSAIDsUse OTC tylenol as directed on the bottle prn pain or feverRevie wed with patient potential adverse side effects of the medication . topical analgesiar est Patient advised to follow up as needed for worsening symptoms or no improvemen t. Health Concerns Section Related Observation LastModified by Organization Detai ls LastModified Time None Recorded Concern Status LastModified by Organization Details LastModified Time None Recorded Advance Directives Directive None Recorded Payers Encounter Date Sequence Insurance Name Policy Number Policy Durand Covered Member ID Durand Member ID Guarantor Name 07/26/2021 1 [facility] [id number] 1 Roni Chimi [id number] Birdie Chimi 03/11/2022 1 [facility] [id number] 1 Roni Chimi [id number] Birdie Chimi 04/18/2024 1 [facility] [id number] 1 Roni Chimi [id number] Birdie Chimi 08/17/2024 1 [facility] [id number] 1 Roni Chimi [id number] Birdie Chimi 08/25/2024 1 [facility] [id number] 1 Roni Chimi [id number] Birdie Chimi Notes Date Note Type Note Provider Name and Address Organization Details Recorded Time 04/18/2024 text/html 53 YOF presents with nausea, vomiting , diarrhea . started 3 days ago with joint pain, then diarrhea now with vomiting. Believes due to mounjaro which she started on 03/28 for about 14 day , she has since stooped the medication due to nausea vomiting and symptoms. The new sx started after eating out , but still she suspects the medication Abi Palomares NP [address] [place], [address], [place] - [facility] 04/22/2024 18:32:56 08/17/2024 text/html 53 y F c/o harsh cough with chest congestion x 1 week. Hx of asthma until last year. She is taking no asthma medications. There have been no sick contacts. Afebrile, no SOB, no wheezing. FELIX TUCKER MD [address] [place], [address], [place] - [facility] 08/17/2024 14:21:26 08/25/2024 text/html Shoulder UCReported bypatient.Notes:53 yo fmale c/o L shoulder zaragoza x 2 d has h/o shoulder pain x > 1 y no h/o traumano swellingno rednessno rashno bruisingno numbness or tingling in the arm - has h/o numbness in hand 2/2 ulnar nurveno weakness did not try any OTC meds RHD but is ambidextrous Valentino Hackett DO [address] [place], [address], [place] [facility] 08/25/2024 12:14:05 OBGyn Episode No OBEpisode recorded.
== END 2024-10-15 10:09 | disposition home or self-care (01) ==
LOC: HO.HGI 08:42
PROVIDERS: PCP Internal Medicine; Visit Provider Internal Medicine Gastroenterology
DX: R19.7 Diarrhea, unspecified (principal)
CPT/HCPCS: 99213

== ENCOUNTER 2024-10-18 15:27 | Outpatient (REF) | payer OTHER, SELFPAY ==
--- OUTSIDE RECORDS SUMMARY | 2024-10-18 18:55 | XMS_ITS | Clinical Summary ---
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
--- OUTSIDE RECORDS SUMMARY | 2024-10-18 18:55 | XMS_ITS | Patient Health Record ---
Author Organization [facility] Address [address] [place] [address] Care Team Providers Care Senior Policy Associate Name Role Phone Rishi Chan Primary Care [...]
--- OUTSIDE RECORDS SUMMARY | 2024-10-18 18:56 | XMS_ITS | Data Portability ---
Author Organization [facility] [address] Address [address] [place] [address] Assessment Encounter Date Assessment Date Assessment LastModified by Organization Details LastModified Time 04/18/2024 04/18/2024 Patient was seen in the office today for nausea. Reviewed history regarding recent illness, medications, symptoms, and physical exam. Studies ordered as below. Discussed plan with , who expresses understanding . Follow up as noted below. [email or web address] Not available 04/18/2024 20:10:07 Plan of Treatment Reminders Order Date Submit Date Provider Last Modified By Organization Details Last Modified Time Details Appointments None recorded. Lab None recorded. Referral orthopedic surgeon referral 2024 025 [email or web address] Not available 12:29:24 Procedures None recorded. Surgeries None recorded. Imaging None recorded. Medication Orders tizanidine 4 mg tablet 2024 025 [facility]0838, [address] [place], [address], 5 12:08:21 albuterol sulfate 2.5 mg/3 mL (0.083 %) solution for nebulizatio n 2024 025 [facility], [address] [place], [address], 5 11:44:30 benzonatate 200 mg capsule 2024 025 [facility]0838, [address] [place], [address], 5 11:44:45 albuterol sulfate HFA 90 mcg/actuati on aerosol inhaler 2024 025 [email or web address] [facility]0838, [address] [place], [address], 5 13:55:51 doxycycline hyclate 100 mg capsule 2024 025 [facility], [address] [place], [address], 5 11:45:33 Zofran 4 mg tablet 2023 024 [facility]0838, [address] [place], [address], 11:46:16 Patient TargetsNo targets recorded. Patient Instructions Encounter Date Encounter Id Patient Instructions Last Modified By Organization Details Last Modified Time 04/18/2024 [id number] nausea and vomiting: care instructions Not available [...] No more than 4 tablets a day. [email or web address] Not available 04/18/2024 20:10:23 08/17/2024 [id number] Aerochamber How to use the Aerochamber Attach the inhaler to the chamber [place] 2 puffs in to the chamber Put the chamber in your mouth with you lips closed around it Take 3 separate breaths from the chamber. Don't breath into the chamber. [email or web address] Not available 08/17/2024 12:18:13 08/25/2024 [id number] shoulder pain: care instructions [email or web address] Not available 08/25/2024 12:08:19 Reason for Referral Orthopedic Surgeon Referral for Pain of left shoulder joint Referring Physician: Valentino Hackett, Urgent Care, Encounter Date: 08/25/2024 Problems Name Problem SNOMED Code Status Onset Date Resolution Date Notes Provider Name and Address Organization Details Recorded Time Acute gastroenteriti s 79609863 Active 2023 Abi Palomares NP [address] [place], [address] [facility] - [facility] 4 20:41:19 Diabetes mellitus 77932548 Active Heather Elías null, [place] - [facility] 5 11:38:12 Depressive disorder 00849327 Active Heather Elías null, PA - [facility] 5 11:38:20 Anxiety 03985397 Active Heather Elías null, PA - [facility] 5 11:38:26 Adrenal medullary insufficiency 02415199 Active Heather Elías null, PA - [facility] 5 11:38:47 Irritable bowel syndrome 54770540 Active Heather Elías null, PA - [facility] 5 11:38:53 Fibromyalgia 674732889 Active Heather Elías null, PA - [facility] 5 11:39:13 Pain 07582835 Active Yusra O'Drew null, [place] - [facility] 5 11:47:57 Problem Notes None recorded. Medical Equipment None Reported. Allergies Allergen ID Allergen Name Allergen Category Reaction Reaction Severity Criticality Documentation Date Start Date Code Code System Note Provider Name and Address Organization Details Recorded Time 8330645 amitripty line medicatio n Not available Not available Not available 08/17/2024 704 RxNorm Heather crane, PA - [facility] 11:37:23 0391615 Risperdal medicatio n Not available Not available Not available 08/17/2024 22221 8 RxNorm Heather crane, PA - [facility] 11:37:43 1802946 Topamax medicatio n Not available Not available Not available 08/17/2024 88487 3 RxNorm Heather crane, [facility] - [facility] [...] Updated DateTime 4 160.02 cm 52.6 kg/m2 103151. 93 g 99 % 99 % 91 /min 16 /min 98.1 [degF] 117 mm[Hg] 80 mm[Hg] Ninfa Bailey PA - [facility] 4 20:16:44 Date Recorded Body height Body mass index (BMI) Body weight Oxygen saturation Oxygen saturation in Arterial blood by Pulse oximetry Heart rate Respiratory rate Body temperature Systolic blood pressure Diastolic blood pressure Provider Name and Address Organization Details Last Updated DateTime 5 160.02 cm 52.6 kg/m2 601242. 93 g 100 % 100 % 94 [...] Updated DateTime 5 160.02 cm 50.5 kg/m2 136470. 83 g 97 % 97 % 95 [...] SNOMED-CT Code Diagnosis ICD10 Code Diagnosis Note [id number] [address] [address] 03/11/2022 08:20:20 03/11/2022 09:08:16 [id number] [facility] [address] [address] 07/26/2021 16:39:35 07/26/2021 18:39:55 [id number] [address] [address] 08/27/2018 17:50:03 08/27/2018 18:45:[id number] [address] 01/15/2018 15:20:20 01/15/2018 15:49:11 [id number] Abi Palomares NP [address] [address] 04/18/2024 18:48:41 04/18/2024 20:44:15 Acute gastroenteritis 05934270 K52.9 If your doctor prescribed antibiotic s, [...] ice cream until you are feeling better. [id number] FELIX TUCKER MD [address] [address] 08/17/2024 11:12:33 08/17/2024 12:57:12 Persistent cough 562087730 R05.3 CoughBlack Elderberry Syrup:1-2 tsp 2-3 times a day for 5 days as needed for coughing.S ambucol Black Elderberry Original Syrup (available at [employer] )[employer] Black Elderberry Syrup, 5.4-Ounce Bottle (available at [employer] or [facility]) Use a cool mist humidifier in the room that you sleep to add moisture to the air, which should soothe the airways and help loosen any mucus that may be present. Asthmatic bronchitis 405 555403 J45.909 [id number] Valentino Hackett [address] [address] 08/25/2024 11:18:21 08/25/2024 12:29:24 Pain of left shoulder joint 3010076585 7512307 M25.512 msk pain v OA v internal [...] Durand Member ID Guarantor Name 07/26/2021 1 [facility] [id number] Roni Harperi [id number] Birdie Chimi 03/11/[address] [place] [address] [id number] Roni Chimi [id number] Birdie Chimi 04/18/[address] [place] [address] [id number] Roni Chimi [id number] Birdie Chimi 08/17/[address] [place] [address] [id number] Roni Chimi [id number] Birdie Chimi 08/25/[address] [place] [address] [id number] Roni Chimi [id number] Birdie Chimi Notes Date Note Type Note [...] but still she suspects the medication Abi Palomares, HEI[place] [address] [place], [address], [place] - [facility] 04/22/2024 18:32:56 08/17/2024 text/html 53 y F c/o harsh cough with chest congestion x 1 week. Hx of asthma until last year. She is taking no asthma medications. There have been no sick contacts. Afebrile, no SOB, no wheezing. FELIX TUCKER MD [address] [place], [address], [place] - [facility] 08/17/2024 14:21:26 08/25/2024 text/html Shoulder UCReported bypatient.Notes:53 yo fmale c/o L shoulder zaragoza x 2 d has h/o shoulder pain x > 1 y no h/o traumano swellingno rednessno rashno bruisingno numbness or tingling in the arm - has h/o numbness in hand 2/2 ulnar nurveno weakness did not try any OTC meds RHD but is ambidextrous Valentino Hackett, [address] [place], [address], [place] - [facility] 08/25/2024 12:14:05 OBGyn Episode No OBEpisode recorded.
[2024-10-24 19:18] LABS: Lactoferrin, Fecal, Quant. 18.56 mcg/mL (<7.25)
== END 2024-10-18 15:28 | disposition home or self-care (01) ==
LOC: HO.LNP 15:27
PROVIDERS: Visit Provider Internal Medicine Gastroenterology
DX: K51.50 Left sided colitis without complications (principal)
CPT/HCPCS: 83631

== ENCOUNTER 2024-12-25 11:30 | Outpatient (RCR) | payer OTHER, SELFPAY ==
[2024-11-07 12:44] VITALS: BP 140/68; PULSE 62; RESP 14; TEMP 36.1; O2SAT 100
[2024-11-07] MEDS: 0.9 % Sodium Chloride Flush 10 ML SYRINGE 5 ML IVFLUSH (14:04)
[2024-11-10 09:48] LABS: TS Negative Control Passed; TS Panel A 1; TS Panel B 0; TS Positive Control Passed; TSpotTB Negative (Negative)
[2024-11-21 08:53] VITALS: BP 157/75; PULSE 92; RESP 18; TEMP 36.2; O2SAT 99
[2024-11-21 08:59] VITALS: BP 128/71; PULSE 91
[2024-12-25 11:02] VITALS: BP 118/68; PULSE 76; RESP 16; TEMP 36.6; O2SAT 96
== END 2025-02-18 12:01 | disposition home or self-care (01) ==
LOC: HO.INF 11:30
PROVIDERS: Visit Provider Internal Medicine Gastroenterology
DX: K58.9 Irritable bowel syndrome, unspecified (principal)
CPT/HCPCS: 36415; 86481; 96365; J3380

== ENCOUNTER 2025-02-18 08:20 | Outpatient (AMB) | payer OTHER, SELFPAY ==
--- NOTE | 2025-02-18 08:24 | MHC.OFFVIS ---
Vital Signs 02/18/25 08:30 Height 5 ft 3 in Weight 299 lb 13.259 oz BMI 53.1 BP 112/64 Blood Pressure Location Rt brachial Position Sitting Pulse 86 Pulse Source Pulse Oximeter Pulse Oximetry (%) 96 Oxygen Delivery Method Room Air Intake Visit Reasons: f/u adrenal insufficency Intake Note: Patient present today for adrenal insufficiency follow up visit. Ekg Monitor Tech Required: No Accompanied by: Spouse Allergies NSAIDS (Non-Steroidal Anti-Inflamma (Nsaids) Allergy (Severe, Verified 02/18/25 08:33) DIFFICULTY BREATHING amitriptyline Allergy (Unknown, Verified 02/18/25 08:33) undesired response naproxen Allergy (Unknown, Verified 02/18/25 08:33) shortness of breath risperidone (Risperdal) Allergy (Unknown, Verified 02/18/25 08:33) undesired response topiramate (Topamax) Allergy (Unknown, Verified 02/18/25 08:33) undesired response Medication List - Last Reconciled 02/18/25 by Zach Sidhu MD blood sugar diagnostic (FreeStyle Lite Strips) As directed,DX: E16.2 - Hypoglycemia, To check blood pressure b.i.d., p.r.n., 90 day supply blood-glucose meter (FreeStyle Lite Meter kit) As directed,DX: E16.2 - Hypoglycemia, To check blood pressure b.i.d., p.r.n., brexpiprazole (Rexulti) mg PO DAILY cholecalciferol (vitamin D3) 125 mcg PO DAILY clonazepam (Klonopin) 1 mg PO BID eszopiclone mg PO lancets (FreeStyle Lancets) As directed,DX: E16.2 - Hypoglycemia, To check blood pressure b.i.d., p.r.n., 90 day supply mesalamine ER (Apriso) 1.5 grams (4 x 0.375 gram) PO QAM 90 days metformin 500 mg PO BID multivitamin 1 tab PO DAILY pantoprazole 40 mg PO QAM prednisone 5 mg PO DAILY pregabalin 225 mg PO BID sertraline 200 mg PO DAILY syringe with needle Use with solucortef actovial for one dose tizanidine 4 mg PO BEDTIME PRN tramadol 50 mg PO QID HPI Comments Details: 54 YO Female with no significant PMHx who is seen in F/U. 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 . She was initially evaluted by Dr. Downey in June 2020 for Hirsutism. She then began having recurrent episodes of hypoglycemia which were symptomatic and resulted in visits to the ED. A full lab panel was assessed and revealed adrenal insufficiency. She then admitted to taking high doses of Glucocorticoids, which she has been doing 6-8 times per year for 3-4 months at a time for the past 20 years. This has been prescribed due to Asthma. At the time of the labs she had been taking Prednisone 20 mg PO daily. She abruptly stopped this, and then began having episodes of hypoglycemia. She underwent a cosyntropin stim test 07/30/2020 which was inadequate with Cortisol not rising appropriately. This confirmed adrenal insufficiency, and she was subsequently started on Prednisone 5 mg PO daily. She again failed her cosyntropin stim test 11/16/2021. Since that time she has had frequent flares of her Asthma and has had to increase her dose of Prednisone. She is currently on a high dose taper, and is using Prednisone 20 mg PO daily. She is seen today in F/U. Labs: Laboratory Tests 11/16/21 11/16/21 08:44 08:44 Cortisol Baseline 0.6 Cortisol 30 Minute 3.1 L Cortisol 60 Minute 4.3 L ACTH <5 L Was on HC 10 mg BID but felt better on prednisone 5mg recently held the hydrocortisone and a.m. cortisol level was undetectable . Back on prednisone 5 mg . No symptoms of adrenal insufficiency The patient is a 54-year-old female presenting for management of adrenal insufficiency and follow-up after cervical spine fusion surgery. The patient underwent cervical spine fusion at C4-5 and C5-6 two weeks ago. The surgery was initially planned as a day procedure, but she required a two-day hospital stay due to oxygenation issues post-operatively. She received a stress dose of corticosteroids during the surgery and was maintained on 5 mg of prednisone post-operatively. The patient has been on long-term prednisone therapy, currently at a dose of 5 mg daily. Attempts to taper off prednisone have been challenging due to adrenal insufficiency, and previous trials with hydrocortisone were poorly tolerated by the patient. The patient is aware of the need for stress dosing during illness or surgery and has a hydrocortisone rescue vial available. [facility] Medical History (Updated 10/30/24 @ 11:13 by Re Whitfield MD) ZHEN positive Adrenal insufficiency Cushings syndrome GERD (gastroesophageal reflux disease) PTSD (post-traumatic stress disorder) Anxiety Depression Asthma Weight gain Hirsutism Irregular menses Fibromyalgia Chronic pain syndrome Spondylosis of lumbar region without myelopathy or radiculopathy Surgical History History of surgery on lower extremity History of nasal septoplasty H/O wrist surgery H/O shoulder surgery Hx of cholecystectomy History of hernia surgery Gastric bypass status for obesity Hx of endoscopy History of colonoscopy Family History Father No problems noted. 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 Patient is currently on prednisone 5 mg q.d.. Patient recently had undetectable cortisol while holding the steroids last yr Plan is to continue the prednisone. We will retest adrenal axis by holding prednisone for 24 hours 1. Adrenal insufficiency The patient is on long-term prednisone therapy, currently at 5 mg daily. Attempts to taper off prednisone have been challenging due to adrenal insufficiency. Previous trials with hydrocortisone were poorly tolerated. The plan is to continue monitoring and attempt tapering when the patient is stable, with stress dosing as needed during illness or surgery. I discussed with the patient the importance of continuing her current prednisone regimen and the challenges associated with tapering off due to adrenal insufficiency. We reviewed the need for stress dosing during illness or surgery and ensured she has a hydrocortisone rescue vial available. I advised her to follow up in six months to reassess her condition and manage any ongoing issues related to her cervical spine fusion. - Continue taking prednisone 5 mg daily as prescribed. - Use hydrocortisone for stress dosing during illness or surgery as needed. - Follow up in six months for reassessment of adrenal insufficiency The patient had an opportunity to ask questions regarding treatment plan. The patient expressed understanding and agreement with the above treatment plan. Patient was informed and verbally consented to the use of an ambient scribe for clinic note documentation during this visit. Medications: New hydrocortisone sod succ (PF) (Solu-Cortef Act-O-Vial (PF)) 100 mg (2 mL) IM ONCE 1 ea 4RF Coding Level of Care Code Est Pt Level 3 (72696) Diagnoses Cushings syndrome E24.9
--- OUTSIDE RECORDS SUMMARY | 2025-02-18 08:28 | XMS_ITS | Patient Health Record ---
Author Organization [facility] Address [address] [place] [address] Care Team Providers Care Cytotechnologist/Histotechnologist Name Role Phone Rishi Chan Primary Care [...]
--- OUTSIDE RECORDS SUMMARY | 2025-02-18 08:28 | XMS_ITS | Clinical Summary ---
Author Organization [facility] Address [address] [place] [address] Care Team Providers Care Inspector Rough [employer]ings Name Role Phone Deepthi Stone Primary Care Provider [phone] Allergies Active Allergy Reactions Criticality Noted Date Comments Amitriptyline Anxiety Low 04/11/2019 paradoxical anxiety Nsaids (Non-Steroidal Anti-Inflammatory Drug) Anaphylaxis High 08/14/2017 Risperidone Anxiety 04/11/2019 Topiramate Dizziness 10/24/2024 Medications acetaminophen (TYLENOL) 500 mg tablet Take 1,000 mg by mouth 3 times daily as needed. Active OneTouch Verio test strips by Other route. As needed 03/21/2024 Active OneTouch Verio Flex meter misc As needed 03/21/2024 Act isai Rexulti 1 mg tablet tablet Take 1 mg by mouth once a day. 10/15/2024 Active cholecalciferol , vitamin D3, 125 mcg (5,000 unit) capsule Take 1 capsule by mouth once a day. Active clonazePAM (KlonoPIN) 1 mg tablet Take 1 mg by mouth 2 times a day. 2 lainez and 2 PRN as needed 09/30/2024 Active Solu-CORTEF, PF, 100 mg/2 mL recon soln injection Inject 100 mg into the shoulder, thigh, or buttocks muscle as directed once. Once as needed 06/15/2019 Active Misbah Arango C Inhale by mouth. As needed 08/17/2024 Active OneTouch Delica Plus Lancet lancet 33 gauge As needed 03/22/2024 Act isai mesalamine (APRISO) 0.375 gram 24 hr capsule Take 375 mg by mouth See admin instructions. 4 tablets daily 10/08/2024 Active metFORMIN 500 mg/5 mL solution Take 500 mg by mouth 2 (two) times a day. 09/15/[address] (PROTONIX) 40 mg tablet Take 40 mg by mouth once a day. Active predniSONE (DELTASONE) 5 mg tablet Take 5 mg by mouth once a day. 09/29/2024 Active pregabalin (LYRICA) 225 mg capsule Take 225 mg by mouth 2 times a day. 10/08/2024 Active sertraline (ZOLOFT) 100 mg tablet Take 100 mg by mouth 2 (two) times a day. Pt takes 100mg twice a day 10/13/2022 Active temazepam (RESTORIL) 15 mg capsule Take 15 mg by mouth nightly as needed. 10/17/2024 Active traMADoL (ULTRAM) 50 mg tablet Take 100 mg by mouth. 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 Trochanteric bursitis of left hip 02/06/2020 TMJ disease 06/01/2019 Arthralgia of multiple sites 08/10/2018 Chronic fatigue 08/10/2018 Periodic headache syndrome 08/10/2018 Vitamin D insufficiency 08/10/2018 GERD (gastroesophageal reflux disease) 1 Fibromyalgia 01/13/2010 Anxiety 06/15/2009 Sleep disorder 06/15/2009 Chronic pain 03/15/1990 Social History Tobacco Use Types Packs/Day Years Used Date Smoking Tobacco: Never Smokeless Tobacco: Never Tobacco Cessation:Counseling Given: Not Answered Alcohol Use Standard Drinks/Week Comments Yes 0 (1 standard drink = 0.6 oz pur e alcohol) rare Comments Unknown Sex and Gender Information Value Date Recorded Sex Assigned at Female 04/22/2023 2:38 PM EDT Legal Sex Female 12:33 PM EDT Gender Identity Female 04/22/2023 2:38 PM EDT Sexual Orientation Straight 04/22/2023 2: 38 PM EDT Last Filed Vital Signs Vital Sign Reading Time Taken Comments Blood Pressure 109/68 10/24/2024 8:44 AM EDT Pulse 77 10/24/2024 8:44 AM EDT Temperature - - Respiratory Rate - - Oxygen Saturation - - Inhaled Oxygen Concentration - - Weight 132.1 kg (291 lb 3.2 oz) 10/24/2024 8:44 AM EDT Height 160 cm (5' 3 ) 10/24/2024 8:44 AM EDT Body Mass Index 51.58 10/24/2024 8:44 AM EDT Plan of Treatment Health Maintenance Due Date Last Done Comments Basic Metabolic Panel 1971 Cervical Cancer Screening 1971 Cologuard 1971 Colon Cancer Screening 1971 Colonoscopy 1971 FOBT / Fit Test 1971 HIV Screening 1971 HPV and Pap Smear 1971 Hemoglobin A1C 1971 Hepatitis C Screening 1971 Pap Smear 1971 Sigmoidoscopy 1971 Ophthalmology Exam 12/28/1981 Urine Microalbumin 12/28/1981 Hepatitis B Vaccines (1 of 3 - 19+ 3-dose series) 12/28/1990 DTaP,Tdap,and Td Vaccines (1 - Tdap) 02/19/2010 02/18/2010 Mammogram 2011 Pneumococcal Vaccine: 50+ Ye ars (2 of 2 - PCV) 06/14/2018 06/14/2017 Zoster Vaccines (1 of 2) 12/28/2021 Alcohol/Substance Use Screening 08/15/2024 Depression Screening and Follow-Up 08/15/2024 Social Drivers of Health Deb ual Screening 08/15/2024 RSV Vaccine (60+ years old a nd patients) (1 - 1-dose 75+ series) 12/28/2046 COVID-19 Vaccine Completed 05/26/2024, , 01/05/2022, Additional history exists Influenza Vaccine Completed 05/26/2024, , 06/15/2021, Additional history exists Insurance [employer] Care Teams Inspector Rough Castings Relationship Specialty Start Date End Date Deepthi Stone [address] [place] [address] PCP - General Internal Medicine 06/28/24
--- OUTSIDE RECORDS SUMMARY | 2025-02-18 08:28 | XMS_ITS | Clinical Summary ---
Author Organization [facility] Address [address] [place] [address] Care Team Providers Care Cook Specialty Foreign Food Name Role Phone Unavailable Primary Care Provider Unavailabl e Surgical History Surgery Date Site/Laterality Comments BARIATRIC SURGERY PROCEDURE: LA LAPS GSTRC RSTRICTIV PX LONGITUDINAL GASTRECTOMY OTHER SURGICAL HISTORY PROCEDURE: LA LAPS RPR PARAESPHGL HRNA INCL FUNDPLSTY W/O MESH Medical History Medical History Date Comments Depression DX:Depression Anxiety DX:Anxiety GERD (gastroesophageal reflux disease) DX:GERD (gastroesophageal reflux disease) Asthma DX:Asthma Hypoadrenalism (CMS/HCC V24) DX: Hypoadrenalism (HCC) Asthma DX:Asthma PTSD (post-traumatic stress disorder) [...] Vaccines (1 of 2) 12/28/2021 COVID-19 Vaccine (2023-2 5 season) 2024 Influenza Vaccine (#1) 2025 HIB Vaccines Aged Out No longer eligi [...] age to complete this topic Meningococcal B Vaccine Aged Out No l onger eligible based on patient's age to complete [...]
[2025-02-18 08:30] VITALS: BP 112/64; PULSE 86; O2SAT 96; BMI 53.1
== END 2025-02-18 08:51 | disposition home or self-care (01) ==
LOC: HO.ENCR 08:20
PROVIDERS: PCP Internal Medicine; Visit Provider Internal Medicine Endocrinology, Diabetes & Metabolism
DX: E24.9 Cushing's syndrome, unspecified (principal)
CPT/HCPCS: 99213

== ENCOUNTER 2025-04-22 08:29 | Outpatient (REF) | payer OTHER, SELFPAY ==
[2025-04-22 09:29] LABS: MANUAL DIFF FLAG NO
[2025-04-22 10:06] LABS: Hematocrit 39.3 % (37.0-47.0); Hemoglobin 12.5 g/dl (12.0-16.0); Imm Gran Abs Auto 0.04 X10*3/uL (0.00-0.03); Imm Gran Pct Auto 0.4 % (0.0-0.4); Lymphocytes Absolute Auto 2.0 X10*3/uL (1.2-4.9); Mean Corpuscular HGB Conc 31.8 g/dl (31.0-35.0); Mean Corpuscular Hemoglobin 25.8 pg (27.0-33.0); Mean Corpuscular Volume 81.0 fL (80.0-98.0); NRBC Abs Auto 0.000 X10*3/uL (0.0-0.012); NRBC Pct Auto 0.0 /100WBC (0.0-0.2); Platelet Count 329 X10*3/uL (160-400); Red Blood Count 4.85 X10*6/uL (4.20-5.50); White Blood Count 10.3 X10*3/uL (4.8-10.8)
[2025-04-22 10:46] LABS: Alanine Aminotransferase 19 U/L (0-31); Albumin Level 4.2 g/dL (3.5-5.0); Alkaline Phosphatase 82 U/L (39-117); Anion Gap 15 (12-20); Aspartate Amino Transferase 23 U/L (5-31); Blood Urea Nitrogen 18 mg/dL (9-16); Calcium 9.1 mg/dL (8.4-10.2); Carbon Dioxide 23 mmol/L (22-29); Chloride 107 mmol/L (96-108); Estimated Glomerular Filt Rate > 60; Potassium 4.2 mmol/L (3.3-5.1); Sodium 141 mmol/L (135-145); Total Protein 7.5 g/dL (6.5-8.0)
== END 2025-04-22 08:30 | disposition home or self-care (01) ==
LOC: HO.LAB 08:29
PROVIDERS: PCP Internal Medicine; Visit Provider Internal Medicine Gastroenterology
DX: K52.9 Noninfective gastroenteritis and colitis, unspecified (principal); K75.81 Nonalcoholic steatohepatitis (NASH); Z13.29 Encounter for screening for other suspected endocrine disorder
CPT/HCPCS: 36415; 80053; 82533; 84443; 85025; 86140

== ENCOUNTER 2025-04-22 08:29 | Outpatient (AMB) | payer OTHER, SELFPAY ==
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
[2025-04-22 08:47] VITALS: BP 124/68; PULSE 78; BMI 54.7
--- OUTSIDE RECORDS SUMMARY | 2025-04-22 09:30 | XMS_ITS | Clinical Summary ---
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
--- OUTSIDE RECORDS SUMMARY | 2025-04-22 09:30 | XMS_ITS | Clinical Summary ---
Author Organization [facility] Address [address] [facility] [address] [place] [phone] Phone Care Team Providers Care Frit Burner Name Role Phone Deepthi Stone MD Primary Care Provide r Allergies Active Allergy Reactions Criticality Noted Date Comments Amitriptyline Anxiety Low 04/11/2019 Nsaids (Non-Steroidal Anti-Inflammatory Drug) Anaphylaxis High 08/14/2017 Risperidone 04/11/2019 Bupropion Hcl 08/14/2017 High dose causes her to turn in to zombie Medications albuterol 90 mcg/actuation inhaler Inhale 2 puffs into the lungs as needed. Active pantoprazole (PROTONIX) 40 MG tablet Take 40 mg by mouth daily. Active ADVAIR HFA 230-21 mcg/actuation inhaler Inhale 2 puffs into the lungs daily. 5 8 Active naratriptan (AMERGE) 2.5 MG tablet Take 2.5 mg by mouth as needed. 4 8 Active biotin 5 mg Tab Take 5,000 mg by mouth daily. Active ascorbic acid (VITAMIN C ORAL) Take 500 mg by mouth daily. Active INTRAUTERINE DEVICE, IUD, UTRN Once every 5 years. Active cetirizine (ZYRTEC) 10 MG tablet Take 10 mg by mouth daily. 0 9 Active B-complex with vitamin C Cap Take 1 capsule by mouth daily. Active sertraline (ZOLOFT) 100 MG tablet TAKE 1+1/2 TABLETS BY MOUTH DAILY 0 9 Active traZODone (DESYREL) 100 MG tabletIndications :200mg Take 100 mg by mouth nightly at bedtime. Indications: 200mg 0 9 Active buPROPion (WELLBUTRIN SR) 100 MG SR 12 hr tablet Take 100 mg by mouth 2 (two) times a day. Active LORazepam (ATIVAN) 0.5 MG tablet Take 0.5 mg by mouth 2 (two) times a day. 2 9 Active acetaminophen (TYLENOL) 500 MG tablet Take 1,000 mg by mouth 3 (three) times a day as needed for pain (specific location in comments). Active traMADoL (ULTRAM) 50 mg tablet Take 50 mg by mouth as needed. 0 Active tiZANidine (ZANAFLEX) 4 MG tabletIndications :Chronic left-sided low back pain with left-sided sciatica,Fibromya lgia Take 1 tablet (4 mg total) by mouth every 6 (six) hours as needed. 45 tablet 1 0 Active Additional Information Patient not taking.Reported on 08/19/2022 hydrOXYzine (VISTARIL) 50 MG capsule 50 mg 2 (two) times a day as needed. 0 Active metoclopramide HCl (REGLAN) 5 MG tablet Take 5 mg by mouth daily. 0 Active QUEtiapine (SEROQUEL) 25 MG tablet 12.5 mg daily. 0 Active fexofenadine (ELLIOT) 180 MG tablet Take 180 mg by mouth daily. Active pregabalin (LYRICA) 25 MG capsuleIndication s:Fibromyalgia Take 1cap three times daily 90 capsule 11 0 Active cholecalciferol (VITAMIN D3) 5,000 unit capsuleIndication s:Vitamin D insufficiency TAKE 1 CAPSULE BY MOUTH EVERY DAY 90 capsule 1 1 Active Additional Information Patient not taking.Reported on 08/19/2022 clonazePAM (KLONOPIN) 1 MG tablet Take 1 mg by mouth. 2 Active fluticasone-umecl idin-vilanter (TRELEGY ELLIPTA) 200-62.5-25 mcg inhaler Trelegy Ellipta 200 mcg-62.5 mcg-25 mcg powder for inhalation INHALE 1 PUFF EVERY DAY FOR 30 DAYS Active predniSONE (DELTASONE) 10 MG tablet prednisone 10 mg tablet PLEASE SEE ATTACHED FOR DETAILED DIRECTIONS Active methylPREDNISolon e (MEDROL DOSEPACK) 4 mg tablet follow package directions 21 tablet 3 Active tiZANidine (ZANAFLEX) 4 MG tablet Take 1 tablet (4 mg total) by mouth every 6 (six) hours as needed. 20 tablet 3 Active Active Problems Problem Noted Date Diagnosed Date Urinary frequency 02/06/2020 Trochanteric bursitis of left hip 02/06/2020 Assessment & Plan (02/06/2020 2:48 PM EDT): Procedure: After an informed oral consent, under sterile conditions using Ethyl chloride spray for local anesthesia I have injected 40 mg DepoMedrol and 2 cc 1% Lidocaine into Left trochanteric bursa uneventfully. Details of post-procedure care were explained to the patient in the office and given in writing. Fibromyalgia 06/01/2019 Assessment & Plan (04/28/2020 10:11 AM EDT): We discussed the diagnosis of fibromyalgia, its natural history, and treatment. Specifically, we discussed that treatment requires many interventions and recognition that we are often unable to get patients completely pain free. Management of fibromyalgia requires patient engagement to address any underlying depression, anxiety, or sleep disorder. Further, patients are encouraged to engage in regular physical activity. Some studies have suggested that Jamey Chi is effective. Other physical activity may including water-based aerobics, gentle yoga, Pilates, biking, walking etc. In terms of pharmacotherapy, there are many options, including tricyclic antidepressants, duloxetine, gabapentin or pregabalin, and cyclobenzaprine as well as other similar medications to those listed. In this case, the patient might try carefully build up the dose of Lyrica as long as she tolerates it in addition to her antidepressants for recent severe bout of depression in summer 2019. Carefully build up the dose of Lyrica from 25 mg twice daily to 25 mg 3 times daily. Call if problems or questions. Get yearly influenza vaccine by mid May 2020. She may benefit from reading book written by Dr Erlin Schmidt [facility] addressing management strategies for patients with fibromyalgia utilizing mindfulness approach. Assessment & Plan (02/07/2020 9:28 PM EDT): We reviewed the diagnosis of fibromyalgia, its natural history, and treatment. Specifically, we discussed that treatment requires many interventions and recognition that we are often unable to get patients completely pain free. Management of fibromyalgia requires patient engagement to address any underlying depression, anxiety, or sleep disorder. Further, patients are encouraged to engage in regular physical activity. Some studies have suggested that Ajmey Chi is effective. Other physical activity may including water-based aerobics, gentle yoga, Pilates, biking, walking etc. In terms of pharmacotherapy, there are many options, including tricyclic antidepressants, duloxetine, gabapentin or pregabalin, and cyclobenzaprine as well as other similar medications to those listed. In this case, the patient might try carefully continue 400 mg gabapentin twice daily in addition to topical products in hope for additional benefit from adding 75 mg of Topamax daily starting 02/07/2020. Call if problems or questions. She may benefit from reading book written by Dr Erlin Schmidt [facility] addressing management strategies for patients with fibromyalgia utilizing mindfulness approach. Assessment & Plan (01/27/2020 3:43 PM EDT): We discussed the diagnosis of fibromyalgia, its natural history, and treatment. Specifically, we discussed that treatment requires many interventions and recognition that we are often unable to get patients completely pain free. Management of fibromyalgia requires patient engagement to address any underlying depression, anxiety, or sleep disorder. Further, patients are encouraged to engage in regular physical activity. Some studies have suggested that Jamey Chi is effective. Other physical activity may including water-based aerobics, gentle yoga, Pilates, biking, walking etc. In terms of pharmacotherapy, there are many options, including tricyclic antidepressants, duloxetine, gabapentin or pregabalin, and cyclobenzaprine as well as other similar medications to those listed. In this case, the patient might try carefully build up the dose of gabapentin as long as she tolerates it in addition to her antidepressants for recent severe bout of depression with suicidal thoughts. She is asked to take 600 mg gabapentin every morning + 900 mg midday + 600 mg at night. Call if problems or questions. She may benefit from reading book written by Dr Erlni Schmidt [facility] addressing management strategies for patients with fibromyalgia utilizing mindfulness approach. Assessment & Plan (10/21/2019 8:09 PM EDT): We discussed the diagnosis of fibromyalgia, its natural history, and treatment. Specifically, we discussed that treatment requires many interventions and recognition that we are often unable to get patients completely pain free. Management of fibromyalgia requires patient engagement to address any underlying depression, anxiety, or sleep disorder. Further, patients are encouraged to engage in regular physical activity. Some studies have suggested that Jamey Chi is effective. Other physical activity may including water-based aerobics, gentle yoga, Pilates, biking, walking etc. In terms of pharmacotherapy, there are many options, including tricyclic antidepressants, duloxetine, gabapentin or pregabalin, and cyclobenzaprine as well as other similar medications to those listed. In this case, the patient might try carefully build up the dose of gabapentin as long as she tolerates it in addition to her antidepressants for recent severe bout of depression with suicidal thoughts. She is asked to take 600 mg gabapentin every morning + 900 mg midday + 600 mg at night. Call if problems or questions. She may benefit from reading book written by Dr Erlin Schmidt [facility] addressing management strategies for patients with fibromyalgia utilizing mindfulness approach. Assessment & Plan (06/12/2019 8:09 PM EDT): We discussed the diagnosis of fibromyalgia, its natural history, and treatment. Specifically, we discussed that treatment requires many interventions and recognition that we are often unable to get patients completely pain free. Management of fibromyalgia requires patient engagement to address any underlying depression, anxiety, or sleep disorder. Further, patients are encouraged to engage in regular physical activity. Some studies have suggested that Jamey Chi is effective. Other physical activity may including water-based aerobics, gentle yoga, Pilates, biking, walking etc. In terms of pharmacotherapy, there are many options, including tricyclic antidepressants, duloxetine, gabapentin or pregabalin, and cyclobenzaprine as well as other similar medications to those listed. In this case, the patient might try carefully low-dose gabapentin as long as she tolerates it in addition to her antidepressants for recent severe bout of depression with suicidal thoughts. May benefit from reading book written by Dr Erlin Schmidt [facility] addressing management strategies for patients with fibromyalgia utilizing mindfulness approach. Depression 06/01/2019 Assessment & Plan (10/18/2019 10:44 AM EST): Continue antidepressants as prescribed, close follow-up with prescribing physician psychiatrist and psychotherapist as scheduled. Assessment & Plan (06/12/2019 8:10 PM EDT): Continue antidepressants as prescribed, close follow-up with prescribing physician psychiatrist and psychotherapist as scheduled. TMJ disease 06/01/2019 Assessment & Plan (02/06/2020 2:49 PM EDT): Continue close follow-up with dentist/oral surgeon. Consider mouthguard for nighttime. Assessment & Plan (01/27/2020 3:31 PM EDT): Continue close follow-up with dentist/oral surgeon. Consider mouthguard for nighttime. Assessment & Plan (10/18/2019 10:42 AM EST): Continue close follow-up with dentist/oral surgeon. Consider mouthguard for nighttime. Assessment & Plan (06/12/2019 8:06 PM EDT): Continue close follow-up with dentist/oral surgeon. Consider mouthguard for nighttime. Chronic left-sided low back pain with left-sided sciatica 11/23/2018 Assessment & Plan (04/28/2020 10:09 AM EDT): Use warm pack versus warm shower prior to gentle exercise routine. Avoid falls, injuries, bending, stooping, heavy lifting and sudden turns. Continue core muscle strengthening exercises as tolerated. Take carefully Tizanidine 4 mg twice daily Topical cream versus patch 2-3 times daily and at bedtime x 3 weeks as needed. Keep body weight in ideal range for her height. Consider warm pool therapy. Consider gentle chiropractic versus acupuncture versus steroid injection as offered by roller painter etc. Assessment & Plan (02/06/2020 2:49 PM EDT): Use warm pack versus warm shower prior to gentle exercise routine. Continue core muscle strengthening exercises as tolerated. Take carefully Tizanidine 4 mg twice daily Topical cream versus patch 2-3 times daily and at bedtime x 3 weeks as needed. Keep body weight in ideal range for her height. Consider warm pool therapy. Consider gentle chiropractic versus acupuncture versus cranio-sacral therapy etc. Assessment & Plan (01/27/2020 3:52 PM EDT): Use warm pack versus warm shower prior to gentle exercise routine. Continue core muscle strengthening exercises as tolerated. Take carefully Tizanidine 4 mg twice daily Topical cream versus patch 2-3 times daily and at bedtime x 3 weeks as needed. Keep body weight in ideal range for her height. Consider warm pool therapy. Consider gentle chiropractic versus acupuncture versus cranio-sacral therapy etc. Assessment & Plan (11/28/2018 11:12 PM EDT): Use warm pack versus warm shower prior to gentle exercise routine. Continue core muscle strengthening exercises as tolerated. Topical cream versus patch 2-3 times daily and at bedtimex 3 weeks as needed. Keep body weight in ideal range for her height. Consider warm pool therapy. Consider gentle chiropractic versus acupuncture versus cranio-sacral therapy etc. Arthralgia of multiple sites 08/10/2018 Assessment & Plan (10/21/2019 8:10 PM EDT): Joint protection, energy conservation. Gentle, regular exercise routine. Avoid falls, injuries, overuse. Keep body weight in ideal range for his height. She may benefit from topical cream such as Arnica, Biofreeze, Aspercreme versus medicated patches such as salonpas, icy hot patch 2-3 times daily and if necessary at bedtime x 3 weeks. Regular warm pool therapy may provide additional benefit Chronic fatigue 08/10/2018 Assessment & Plan (06/12/2019 8:11 PM EDT): Sleep hygiene. Well-balanced nutritionally diet. Proper hydration. Gentle, regular exercise routine. Avoid sick contacts. Keep engaged in regular hobbies/favorite activities. Dyspepsia 08/10/2018 Assessment & Plan (11/28/2018 11:12 PM EDT): Well-balanced nutritionally diet. Continue hyoscyamine as instructed. Gastroesophageal reflux disease without esophagi tis 08/10/2018 Assessment & Plan (02/06/2020 2:48 PM EDT): Avoid late, large, spicy meals. Keep headboard elevated at 45 angle for nighttime. Assessment & Plan (01/27/2020 3:43 PM EDT): Avoid late, large, spicy meals. Keep headboard elevated at 45 angle for nighttime. Assessment & Plan (10/18/2019 10:45 AM EST): Avoid late, large, spicy meals. Keep headboard elevated at 45 angle for nighttime. Assessment & Plan (06/12/2019 8:09 PM EDT): Avoid late, large, spicy meals. Keep headboard elevated at 45 angle for nighttime. Assessment & Plan (11/28/2018 11:12 PM EDT): Avoid late, large, spicy meals. Keep headboard elevated at 45 angle for nighttime. Periodic headache syndrome 08/10/2018 Assessment & Plan (02/06/2020 2:48 PM EDT): Keep well-hydrated. Avoid known triggers. Keep diary of episodes. Rest in a quiet, cool and dark room with an ice pack over a towel on her forehead or neck at the time of headache Assessment & Plan (01/27/2020 3:32 PM EDT): Keep well-hydrated. Avoid known triggers. Keep diary of episodes. Rest in a quiet, cool and dark room with an ice pack over a towel on her forehead or neck at the time of headache Acute left-sided low back pain without sciatica 08/10/2018 Vitamin D insufficiency 08/10/2018 Assessment & Plan (04/25/2020 10:36 AM EDT): Continue proper supplementation to replace deficit. Assessment & Plan (02/07/2020 9:23 PM EDT): Continue proper supplementation to replace deficit. Assessment & Plan (01/27/2020 3:31 PM EDT): Continue proper supplementation to replace deficit. Assessment & Plan (10/18/2019 10:45 AM EST): Continue proper supplementation to replace deficit. Assessment & Plan (06/12/2019 8:06 PM EDT): Continue proper supplementation to replace deficit. Assessment & Plan (11/28/2018 11:10 PM EDT): Continue proper supplementation to replace deficit. Class 2 obesity due to exces s calories without serious comorbidity in adult 08/10/2018 Assessment & Plan (04/28/2020 10:08 AM EDT): Portion control. Limit concentrated sugars, saturated fats and calories in the diet. Keep well-hydrated. If unable to achieve expected goal consider formal dietary/nutritional support. Assessment & Plan (10/18/2019 10:44 AM EST): Portion control. Limit concentrated sugars, saturated fats and calories in the diet. Keep well-hydrated. If unable to achieve expected goal consider formal dietary/nutritional support. Assessment & Plan (06/12/2019 8:06 PM EDT): Portion control. Limit concentrated sugars, saturated fats and calories in the diet. Keep well-hydrated. If unable to achieve expected goal consider formal dietary/nutritional support. Assessment & Plan (11/28/2018 11:11 PM EDT): Portion control. Limit concentrated sugars, saturated fats and calories in the diet. Keep well-hydrated. If unable to achieve expected goal consider formal dietary/nutritional support. 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 Not on reece e 12/11/2022 Are you concerned about learning? Not on file 12/11/2022 No 12/11/2022 No 12/11/2022 Digital Access Answer Date Recorded No 01/09/2023 No 01/09/2023 Reliable internet access at home? Not on file 01/09/2023 Device with a working camera? Not on file Intimate Partner Violence Answer Date R ecorded Are you denied basic needs s uch as food, clothing, or medical care? No 06/05/2023 In the past 12 months have y ou been in a relationship with a person who hurts, threatens, or tries to control you? No 06/05/2023 Are you denied basic needs s uch as food, clothing, or medical care? No 06/05/2023 In the past 12 months have y ou been in a relationship with a person who hurts, threatens, or tries to control you? No 06/05/2023 Comments No Sex and Gender Information Value Date Recorded Sex Assigned at Female 08/22/2017 9:39 AM EST Legal Sex Female 5:11 PM EST Gender Identity Female 08/22/2017 9:39 AM EST Sexual Orientation Straight 08/22/2017 9: 39 AM EST Last Filed Vital Signs Vital Sign Reading Time Taken Comments Blood Pressure 104/68 06/05/2023 4:15 PM EDT Pulse 72 06/05/2023 4:15 PM EDT Temperature 36.2 C (97.2 F) 06/05/2023 4:15 PM EDT Respiratory Rate 17 06/05/2023 4:15 PM EDT Oxygen Saturation 97% 06/05/2023 4:15 PM EDT Inhaled Oxygen Concentration - - Weight 135.2 kg (298 lb) 06/05/2023 1:04 PM EDT Height 160 cm (5' 3 ) 06/05/2023 1:04 PM EDT Body Mass Index 52.79 06/05/2023 1:04 PM EDT Plan of Treatment Health Maintenance Due Date Last Done Comments LIPID PANEL 1971 DEPRESSION SCREENING 1983 HEPATITIS C SCREENING 12/28/1989 HIV ONE-TIME SCREENING (18-65 YEARS) 12/28/1989 PAP SMEAR 12/28/1992 MAMMOGRAM 2011 COLOGUARD 12/28/2016 COLONOSCOPY 12/28/2016 COLORECTAL CANCER SCREENING 12/28/2016 FIT TEST 12/28/2016 FOBT 12/28/2016 SIGMOIDOSCOPY 12/28/2016 VIRTUAL COLONOSCOPY 12/28/2016 Adult Td,Tdap Booster 02/19/2020 02/18/2010 PNEUMOCOCCAL VACCINES (50+ years) (2 of 2 - PCV) 12/28/2021 06/14/2017 ZOSTER VACCINES (1 of 2) 12/28/2021 SCREENING FOR DIABETES 10/17/2022 10/18/2019 COVID-19 VACCINE ( season) 2024 06/30/2022, 01/05/2022, 06/15/2021, Additional history exists SMOKING STATUS SCREENING (Once After 26 Yrs) Completed 08/19/2022 HEPATITIS A VACCINES Aged Out No long er eligible based on patient's age to complete this topic HIB VACCINES Aged Out No longer eligi ble based on patient's age to complete this topic MENINGOCOCCAL VACCINES (ACWY) Aged Out No longer eligible based on patient's age to complete this topic MENINGOCOCCAL VACCINES (B) Aged Out N o longer eligible based on patient's age to complete this topic Medical Devices Implanted Type Area Calender Tender Device Identifier Shelf Expiration Date Model / Serial / Lot Control Device Control Device Uterus Description:IUD Insurance [facility] [address] [place], [place] [address] O [facility] [place] [address] [place] [address] [place] [address] [place] [address] [place] [address] [place] [address] HMO [facility] [place] [place] [address] HMO Advance Directives For more information, please contact: [phone] (9AM - 5PM [facility], Tuesday-Tuesday) * Full Code (Presumed) (Latest Code Status on File) Date Activated Date Inactivated Comments 08/31/2019 9:18 AM 08/31/2019 4:58 PM * Full Code (Presumed) Date Activated Date Inactivated Comments 09/22/2018 8:52 AM 09/22/2018 4:40 PM Care Teams Frit Burner Relationship Specialty Start Date End Date Deepthi Stone MD [address] [place] [id number] PCP - General Internal Medicine 08/19/22 Additional Source Comments The information contained in this document represents components of the legal health record. It is not the complete legal health record.[facility]
--- OUTSIDE RECORDS SUMMARY | 2025-04-22 09:30 | XMS_ITS | Encounter Summary ---
Author Organization [facility] Address [address] [facility] [address] [place] [address] Phone Care Team Providers Care Retail Associate Name Role Phone Vinay Albarado MD Unavailable [phone] Juju Rojas MANUFACTURING ENGINEER CHIEF Unavailable [phone] Shanell Patino MD Unavailable [phone] Natalie Medrano MANUFACTURING ENGINEER CHIEF Primary Care Provider + Natalie Medrano NP Primary Care Provider + Torsten Causey MD Primary Care Provider Deepthi Stone MD Primary Care Provide r Encounter Details Date Type Department Care Team (Late st Contact Info) Description 05/03/2018 Procedure Pass [address] [address] Social History Tobacco Use Types Packs/Day Years Used Date Smoking Tobacco: Never Smokeless Tobacco: Never Alcohol Use Standard Drinks/Week Comments Yes 0 (1 standard drink = 0.6 oz pur e alcohol) rare Comments No Sex and Gender Information Value Date Recorded Sex Assigned at Female 08/22/2017 9:39 AM EST Legal Sex Female 5:11 PM EST Gender Identity Female 08/22/2017 9:39 AM EST Sexual Orientation Straight 08/22/2017 9: 39 AM EST documented as of this encounter Plan of Treatment Not on file documented as of this encounter Visit Diagnoses Not on filedocumented in this encounter Care Teams Retail Associate Relationship Specialty Start Date End Date Natalie Medrano NP [address] [address] PCP - General Family Medicine 06/21/19 11/04/19 Natalie Medrano NP [address] [address] PCP - General Family Medicine 11/21/19 02/21/20 Torsten Causey MD [address] [place] [address] PCP - General 02/22/20 08/18/22 Deepthi Stone MD [address] [place] [id number] PCP - General Internal Medicine 08/19/22 [place] [address] Historical LMR Provider 06/04/17 08/22/21 Juju Rojas NP [address] [place] [address] Historical LMR Provider 06/04/17 08/22/21 Shanell Patino MD [address] [place] [address] [facility] [address] Historical LMR Provider 06/04/17 documented as of this encounter Additional Source Comments The information contained in this document represents components of the legal health record. It is not the complete legal health record.[facility]
--- OUTSIDE RECORDS SUMMARY | 2025-04-22 09:30 | XMS_ITS ---
Author Name [facility] Organization Unknown Encounters Encounter Type Encounter Reason Primary Diagnosis Location Date Ambulatory [facility] 08/25/2024 Ambulatory [facility] ([facility] 08/17/2024
--- OUTSIDE RECORDS SUMMARY | 2025-04-22 09:30 | XMS_ITS | Encounter Summary ---
Author Organization [facility] Address [address] [place] [address] Phone Care Team Providers Care Manager Council Name Role Phone Vinay Albarado MD Unavailable [phone] Juju Rojas PLANETARIUM TECHNICIAN Unavailable [phone] Shanell Patino MD Unavailable WestfirNatalie cottrell PLANETARIUM TECHNICIAN Primary Care Provider + Natalie Medrano NP Primary Care Provider + Torsten Causey MD Primary Care Provider Deepthi Stone MD Primary Care Provide r Reason for Referral * Outpatient Procedure - Closed Specialty Diagnoses / Procedures Referred By Contac t Referred To Contact Radiology Diagnoses Vomiting, intractability of vomiting not specified, presence of nausea not specified, unspecified vomiting type Nausea Procedures NM Gastric Emptying David Doll MD Phone: tel: fax: mailto: Referral ID Status Reason Start Date Expiration Date Visits Re quested Visits Authorized [id number] Closed 08/19/2017 08/19/2018 1 1 Encounter Details Date Type Department Care Team (Latest Contact Info) Description 08/19/2017 Ancillary Orders Virtual Department [address] [place] [address] David Doll MD [address] [address] [email or web address] Vomiting, intractability of vomiting not specified, presence of nausea not specified, unspecified vomiting type; Nausea Social History Tobacco Use Types Packs/Day Years Used Date Smoking Tobacco: Never Smokeless Tobacco: Never Comments Unknown Sex and Gender Information Value Date Recorded Sex Assigned at Female 08/22/2017 9:39 AM EST Legal Sex Female 5:11 PM EST Gender Identity Female 08/22/2017 9:39 AM EST Sexual Orientation Straight 08/22/2017 9: 39 AM EST documented as of this encounter Plan of Treatment Not on file documented as of this encounter Results * NM GASTRIC EMPTYING SOLID PHASE (08/24/2017 1:03 PM EST) Anatomical Region Laterality Modality Abdomen, Pelvis Nuclear Medicine 08/24/2017 1:06 PM EST Impressions 08/24/2017 1:10 PM EST No evidence of gastric retention of solids. No evidence of gastroparesis. Gastric retention of solids at one and two hours is less than normal which is of questionable clinical significance. POS - [id number] Narrative 08/24/2017 1:10 PM EST HISTORY: Nausea, vomiting. Dose: 1.1 mCi Tc-99m sulfur colloid in scrambled eggs. COMPARISON: CT abdomen 03/31/2017. FINDINGS: The percent of gastric retention of radiotracer was analyzed at one hour, two hour and four hour. At one hour the percent of gastric retention of radiotracer is 21.0% which is lower than normal. Measurement is 7.7% at two hours which is also low. Measurement is 1.1% at four hours which is within normal limits. Procedure Note Roni Levy MD - 08/24/2017 HISTORY: Nausea, vomiting. Dose: 1.1 mCi Tc-99m sulfur colloid in scrambled eggs. COMPARISON: CT abdomen 03/31/2017. FINDINGS: The percent of gastric retention of radiotracer was analyzed at one hour,two hour and four hour. At one hour the percent of gastric retention of radiotracer is 21.0% whichis lower than normal. Measurement is 7.7% at two hours which is also low.Measurement is 1.1% at four hours which is within normal limits. IMPRESSION: No evidence of gastric retention of solids. No evidence of gastroparesis.Gastric retention of solids at one and two hours is less than normalwhich is of questionable clinical significance. POS - [id number] David Doll MD IMG NM ABDOMEN Final Resu lt documented in this encounter Visit Diagnoses Diagnosis Vomiting, intractability of vomiting not specified, presence of nausea not specified, unspecified vomiting type Nausea Nausea alone Vomiting, intractability of vomiting not specified, presence of nausea not specified, unspecified vomiting type Nausea Nausea alone documented in this encounter Care Teams Manager Council Relationship Specialty Start Date End Date Natlaie Medrano NP [address] [address] PCP - General Family Medicine 06/21/19 11/04/19 Natalie Medrano NP [address] [place] [address] PCP - General Family Medicine 11/21/19 02/21/20 Torsten Causey MD [address] [place] [address] PCP - General 02/22/20 08/18/22 Deepthi Stone MD [address] [place] [address] PCP - General Internal Medicine 08/19/22 [place] [address] Historical LMR Provider 06/04/17 08/22/21 Juju Rojas NP [address] [place] [address] [email or web address] Historical LMR Provider 06/04/17 08/22/21 Shanell Patino MD [address] [place] [address] [facility] Medicine, [place] [address] [email or web address] Historical LMR Provider 06/04/17 documented as of this encounter Additional Source Comments The information contained in this document represents components of the legal health record. It is not the complete legal health record.[facility]
--- OUTSIDE RECORDS SUMMARY | 2025-04-22 09:30 | XMS_ITS | Clinical Summary ---
Author Organization [facility] Address [address] [place] [address] Care Team Providers Care Welfare Officer Name Role Phone Deepthi Stone Primary Care Provider [phone] Allergies Active Allergy Reactions Criticality Noted Date [...] Drivers of Health Deb ual Screening 08/15/2024 Influenza Vaccine (#1) 2025 4, 06/30/2022, 06/15/2021, Additional history exists RSV Vaccine (60+ years old a nd patients) (1 - 1-dose 75+ series) 12/28/2046 COVID-19 Vaccine Completed 05/26/2024, , 01/05/2022, Additional history exists Insurance [employer] Care Teams Welfare Officer Relationship Specialty Start Date End Date Deepthi Stone [address] [place] [phone] PCP - General Internal Medicine 06/28/24
--- OUTSIDE RECORDS SUMMARY | 2025-04-22 09:30 | XMS_ITS | Encounter Summary ---
Author Organization [facility] Address [address] [place] [address] Care Team Providers Care Loan Supervisor Name Role Phone Deepthi Stone Primary Care Provider [phone] Encounter Details Date Type Department Care Team (Late st Contact Info) Description 05/19/2023 Telephone [facility] [address] [place] [address] Telephone Intake, Staff Social History Tobacco Use Types Packs/Day Years Used Date Smoking Tobacco: Never Assessed Comments Unknown Sex and Gender Information Value Date Recorded Sex Assigned at Female 04/22/2023 2:38 PM EDT Legal Sex Female 12:33 PM EDT Gender Identity Female 04/22/2023 2:38 PM EDT Sexual Orientation Straight 04/22/2023 2: 38 PM EDT documented as of this encounter Miscellaneous Notes * Telephone Encounter - Matthew Watts - 05/19/2023 3:26 PM EDT Longevity of the cough and/if other symptoms: August 2001 Referring MD or person and other applicable info given: Dr Stevie Hernandez Provider's office requesting a fax with appointment information [phone]. Referral unader media documented in this encounter Plan of Treatment Not on file documented as of this encounter Visit Diagnoses Not on filedocumented in this encounter Care Teams Loan Supervisor Relationship Specialty Start Date End Date Deepthi Stone [address] [place] [phone] PCP - General Internal Medicine 06/28/24 documented as of this encounter
--- OUTSIDE RECORDS SUMMARY | 2025-04-22 09:30 | XMS_ITS | Encounter Summary ---
Author Organization [facility] Address [address] [facility] [address] [place] [address] Phone Care Team Providers Care Carpenters Supervisor Name Role Phone Vinay Albarado MD Unavailable Juju Rojas ROCK MASON Unavailable [phone] Shanell Patino MD Unavailable Willow StreetNatalie cottrell ROCK MASON Primary Care Provider + Natalie Medrano NP Primary Care Provider + Torsten Causey MD Primary Care Provider Deepthi Stone MD Primary Care Provide r Encounter Details Date Type Department Care Team (Late st Contact Info) Description 07/24/2019 Prep for Surgery [facility] Orthopedics & Sports Medicine [address] [place] [address] Erna Montano MD [address] [place] [address] Orthopedics & Sports Medicine, [facility]. [place], [place] [id number] Social History Tobacco Use Types Packs/Day Years [...] on filedocumented in this encounter Care Teams Carpenters Supervisor Relationship Specialty Start Date End Date Natalie Medrano NP [address] [address] PCP - General Family Medicine 06/21/19 11/04/19 Natalie Medrano NP [address] [address] PCP - General Family Medicine 11/21/19 02/21/20 Torsten Causey MD [address] [place] [address] PCP - General 02/22/20 08/18/22 Deepthi Stone MD [address] [place] [address] PCP - General Internal Medicine 08/19/22 [place] [address] Historical LMR Provider 06/04/17 08/22/21 Juju Rojas NP [address] [place] [address] Historical LMR Provider 06/04/17 08/22/21 Shanell Patino MD [address] [place] [address] Orthopedics & Sports Medicine, [facility] [place] [address] Historical LMR Provider 06/04/17 documented as of this encounter Additional Source Comments The information contained in this document represents components of the legal health record. It is not the complete legal health record.[facility]
--- OUTSIDE RECORDS SUMMARY | 2025-04-22 09:30 | XMS_ITS | Encounter Summary ---
Author Organization [facility] Address [address] [facility] [address] [place] [address] Phone Care Team Providers Care Manager Tax Name Role Phone Vinay Albarado MD Unavailable Juju Rojas UNDERCOATER Unavailable [phone] Shanell Patino MD Unavailable Natalie Medrano UNDERCOATER Primary Care Provider + Natalie Medrano NP Primary Care Provider + Torsten Causey MD Primary Care Provider Deepthi Stone MD Primary Care Provide r Encounter Details Date Type Department Care Team (Late st Contact Info) Description 08/31/2019 Procedure Pass OR Admitting Dept - Virtual Department [address] [place] [address] Social History Tobacco Use Types Packs/Day Years [...] on filedocumented in this encounter Care Teams Manager Tax Relationship Specialty Start Date End Date Natalie Medrano NP [address] [address] PCP - General Family Medicine 06/21/19 11/04/19 Natalie Medrano NP [address] [address] PCP - General Family Medicine 11/21/19 02/21/20 Torsten Causey MD [address] [place] [address] PCP - General 02/22/20 08/18/22 Deepthi Stone MD [address] [place] [address] PCP - General Internal Medicine 08/19/22 [place] [address] Historical LMR Provider 06/04/17 08/22/21 Juju Rojas NP [address] [place] [address] Historical LMR Provider 06/04/17 08/22/21 Shanell Patino MD [address] [place] [address] [facility] [place] [address] Historical LMR Provider 06/04/17 documented as of this encounter Additional Source Comments The information contained in this document represents components of the legal health record. It is not the complete legal health record.[facility]
--- OUTSIDE RECORDS SUMMARY | 2025-04-22 09:30 | XMS_ITS | Encounter Summary ---
Author Organization [facility] Address [address] [facility] [address] [place] [address] Phone Care Team Providers Care Measurement And Sensing Technician Name Role Phone Vinay Albarado MD Unavailable Juju Rojas ELASTIC ASSEMBLER Unavailable [phone] Shanell Patino MD Unavailable [phone] Natalie Medrano ELASTIC ASSEMBLER Primary Care Provider + Natalie Medrano NP Primary Care Provider + Torsten Causey MD Primary Care Provider Deepthi Stone MD Primary Care Provide r Encounter Details Date Type Department Care Team (Late st Contact Info) Description 09/22/2018 Procedure Pass [place] Admitting Dept - Virtual Department [address] [place] [address] Social History Tobacco Use Types Packs/Day Years [...] on filedocumented in this encounter Care Teams Measurement And Sensing Technician Relationship Specialty Start Date End Date Natalie Medrano NP [address] [address] PCP - General Family Medicine 06/21/19 11/04/19 Natalie Medrano NP [address] [address] PCP - General Family Medicine 11/21/19 02/21/20 Torsten Causey MD [address] [place] [address] PCP - General 02/22/20 08/18/22 Deepthi Stone MD [address] [place] [address] PCP - General Internal Medicine 08/19/22 [place] [address] Historical LMR Provider 06/04/17 08/22/21 Juju Rojas NP [address] [place] [address] Historical LMR Provider 06/04/17 08/22/21 Shanell Patino MD [address] [place] [address] [facility] [place] [place] [address] Historical LMR Provider 06/04/17 documented as of this encounter Additional Source Comments The information contained in this document represents components of the legal health record. It is not the complete legal health record.[facility]
--- OUTSIDE RECORDS SUMMARY | 2025-04-22 09:30 | XMS_ITS | Encounter Summary ---
Author Organization [facility] Address [address] [facility] [address] [place] [address] Phone Care Team Providers Care Relations Mgr Name Role Phone Vinay Albarado MD Unavailable Juju Rojas MAKEUP ARTIST Unavailable [phone] Shanell Patino MD Unavailable HuntingtonNatalie cottrell MAKEUP ARTIST Primary Care Provider + Natalie Medrano NP Primary Care Provider + Torsten Causey MD Primary Care Provider Deepthi Stone MD Primary Care Provide r Encounter Details Date Type Department Care Team (Late st Contact Info) Description 08/30/2018 Prep for Surgery [facility] Orthopedics & Sports Medicine [address] [place] [address] Erna Montano MD [address] [place] [address] Orthopedics & Sports Medicine, [facility]. [place], [place] [id number] [email or web address] Social History Tobacco Use Types Packs/Day Years [...] on filedocumented in this encounter Care Teams Relations Mgr Relationship Specialty Start Date End Date Natalie Medrano NP [address] [address] PCP - General Family Medicine 06/21/19 11/04/19 Natalie Medrano NP [address] [address] PCP - General Family Medicine 11/21/19 02/21/20 Torsten Causey MD [address] [place] [address] PCP - General 02/22/20 08/18/22 Deepthi Stone MD [address] [place] [address] PCP - General Internal Medicine 08/19/22 [place] [address] Historical LMR Provider 06/04/17 08/22/21 Juju Rojas NP [address] [place] [address] Historical LMR Provider 06/04/17 08/22/21 Shanell Patino MD [address] [place] [address] Orthopedics & Sports Medicine, [facility] [place] [address] Historical LMR Provider 06/04/17 documented as of this encounter Additional Source Comments The information contained in this document represents components of the legal health record. It is not the complete legal health record.[facility]
== END 2025-04-22 09:16 | disposition home or self-care (01) ==
LOC: HO.HGI 08:29
PROVIDERS: PCP Internal Medicine; Visit Provider Internal Medicine Gastroenterology
DX: K52.9 Noninfective gastroenteritis and colitis, unspecified (principal)
CPT/HCPCS: 99213

== ENCOUNTER 2025-06-12 09:29 | Outpatient (REF) | payer OTHER, SELFPAY ==
[2025-06-12 09:40] LABS: MANUAL DIFF FLAG NO
[2025-06-12 09:55] LABS: Hematocrit 37.2 % (37.0-47.0); Hemoglobin 11.6 g/dl (12.0-16.0); Imm Gran Abs Auto 0.02 X10*3/uL (0.00-0.03); Imm Gran Pct Auto 0.2 % (0.0-0.4); Lymphocytes Absolute Auto 2.3 X10*3/uL (1.2-4.9); Mean Corpuscular HGB Conc 31.2 g/dl (31.0-35.0); Mean Corpuscular Hemoglobin 25.2 pg (27.0-33.0); Mean Corpuscular Volume 80.9 fL (80.0-98.0); NRBC Abs Auto 0.000 X10*3/uL (0.0-0.012); NRBC Pct Auto 0.0 /100WBC (0.0-0.2); Platelet Count 285 X10*3/uL (160-400); Red Blood Count 4.60 X10*6/uL (4.20-5.50); White Blood Count 9.0 X10*3/uL (4.8-10.8)
[2025-06-12 10:46] LABS: Alanine Aminotransferase 14 U/L (0-31); Albumin Level 3.9 g/dL (3.5-5.0); Alkaline Phosphatase 79 U/L (39-117); Anion Gap 13 (12-20); Aspartate Amino Transferase 16 U/L (5-31); Blood Urea Nitrogen 17 mg/dL (9-16); Calcium 8.7 mg/dL (8.4-10.2); Carbon Dioxide 23 mmol/L (22-29); Chloride 108 mmol/L (96-108); Estimated Glomerular Filt Rate > 60; Potassium 3.8 mmol/L (3.3-5.1); Sodium 140 mmol/L (135-145); Total Protein 7.0 g/dL (6.5-8.0)
--- OUTSIDE RECORDS SUMMARY | 2025-06-12 11:14 | XMS_ITS | Clinical Summary ---
Author Organization [facility] Address [address] [place] [address] Care Team Providers Care Rfid Developer Name Role Phone Deepthi Stone Primary Care Provider [phone] Allergies Active Allergy Reactions Criticality Noted Date [...] Drivers of Health Deb ual Screening 08/15/2024 COVID-19 Vaccine (7 - 2024-2 6 season) 2025 05/26/2024, 06/30/2022, 01/05/2022, Additional history exists Influenza Vaccine (#1) 2025 4, 06/30/2022, 06/15/2021, Additional history exists RSV Vaccine (60+ years old a nd patients) (1 - 1-dose 75+ series) 12/28/2046 Insurance [employer] Care Teams Rfid Developer Relationship Specialty Start Date End Date Deepthi Stone [address] [place] [address] PCP - General Internal Medicine 06/28/24
--- OUTSIDE RECORDS SUMMARY | 2025-06-12 11:15 | XMS_ITS | Clinical Summary ---
Author Organization [facility] Address [address] [place] [phone] Care Team Providers Care Needle Leader Name Role Phone Unavailable Primary Care Provider Unavailabl e Surgical History Surgery Date Site/Laterality Comments BARIATRIC SURGERY PROCEDURE: NV LAPS GSTRC RSTRICTIV PX LONGITUDINAL GASTRECTOMY OTHER SURGICAL HISTORY PROCEDURE: NV LAPS RPR PARAESPHGL HRNA INCL FUNDPLSTY W/O [...] 5 season) 2025 Influenza Vaccine (#1) 2025 RSV Immunization Adult Patie nts (1 - 1-dose 75+ series) 12/28/2046 HIB Vaccines Aged Out No longer eligi [...]
--- OUTSIDE RECORDS SUMMARY | 2025-06-12 11:15 | XMS_ITS | Encounter Summary ---
Author Organization [facility] Address [address] [facility] [address] [place] [address] Phone Care Team Providers Care Embalmer Apprentice Name Role Phone Vinay Albarado MD Unavailable Juju Rojas CUTTING ROOM SUPERVISOR Unavailable [phone] Shanell Patino MD Unavailable GreenwaldNatalie cottrell CUTTING ROOM SUPERVISOR Primary Care Provider + Natalie Medrano NP Primary Care Provider + Torsten Causey MD Primary Care Provider Deepthi Stone MD Primary Care Provide r Encounter Details Date Type Department Care Team (Late st Contact Info) Description 07/24/2019 Prep for Surgery [facility] Orthopedics & Sports Medicine [address] [place] [address] Erna Montano MD [address] [place] [address] Orthopedics & Sports Medicine, [facility]. [place], [place] [id number] Social History Tobacco Use Types Packs/Day Years [...] on filedocumented in this encounter Care Teams Embalmer Apprentice Relationship Specialty Start Date End Date Natalie Medrano NP [address] [place] [address] PCP - General Family Medicine 06/21/19 11/04/19 Natalie Medrano NP [address] [place] [address] PCP - General Family Medicine 11/21/19 02/21/20 Torsten Causey MD [address] [place] [address] PCP - General 02/22/20 08/18/22 Deepthi Stone MD [address] [place] [address] PCP - General Internal Medicine 08/19/22 [place] [address] Historical LMR Provider 06/04/17 08/22/21 Juju Rojas NP [address] [place] [address] Historical LMR Provider 06/04/17 08/22/21 Shanell Patino MD [address] [place] [address] Orthopedics & Sports Medicine, [facility] [place] [address] Historical LMR Provider 06/04/17 documented as of this encounter Additional Source Comments The information contained in this document represents components of the legal health record. It is not the complete legal health record.[facility]
--- OUTSIDE RECORDS SUMMARY | 2025-06-12 11:15 | XMS_ITS | Encounter Summary ---
Author Organization [facility] Address [address] [facility] [address] [place] [address] Phone Care Team Providers Care Senior Living Advisor Name Role Phone Vinay Albarado MD Unavailable Juju Rojas MASH FILTER OPERATOR Unavailable [phone] Shanell Patino MD Unavailable QuincyNatalie cottrell MASH FILTER OPERATOR Primary Care Provider + Natalie Medrano NP [...] Expiration Date Visits Re quested Visits Authorized [id number] Closed 08/19/2017 08/19/2018 1 1 Encounter Details Date Type Department Care Team (Latest Contact Info) Description 08/19/2017 Ancillary Orders Virtual Department [address] [place] [address] David Doll MD [address] [address] [email or web address] Vomiting, intractability of vomiting not specified, presence [...] is of questionable clinical significance. POS - [id number] Narrative 08/24/2017 1:10 PM EST HISTORY: Nausea, [...] is of questionable clinical significance. POS - [id number] David Doll MD IMG NM ABDOMEN Final Resu lt documented in this encounter Visit Diagnoses Diagnosis Vomiting, intractability of vomiting not specified, presence of nausea not specified, unspecified vomiting type Nausea Nausea alone Vomiting, intractability of vomiting not specified, presence of nausea not specified, unspecified vomiting type Nausea Nausea alone documented in this encounter Care Teams Senior Living Advisor Relationship Specialty Start Date End Date Natalie Medrano NP [address] [place] [address] PCP - General Family Medicine 06/21/19 11/04/19 Natalie Medrano NP [address] [place] [address] PCP - General Family Medicine 11/21/19 02/21/20 Torsten Causey MD [address] [place] [address] PCP - General 02/22/20 08/18/22 Deepthi Stone MD [address] [place] [address] [address] [place] [address] PCP - General Internal Medicine 08/19/22 [place] [address] [email or web address] Historical LMR Provider 06/04/17 08/22/21 Juju Rojas NP [address] [place] [address] [email or web address] Historical LMR Provider 06/04/17 08/22/21 Shanell Patino MD [address] [place] [address] Orth[facility] Sports Medicine, [place] [address] [email or web address] Historical LMR Provider 06/04/17 documented as of this encounter Additional Source Comments The information contained in this document represents components of the legal health record. It is not the complete legal health record.[facility]
--- OUTSIDE RECORDS SUMMARY | 2025-06-12 11:15 | XMS_ITS | Patient Health Record ---
Author Organization [facility] Address [address] [place] [address] Care Team Providers Care Air Valve Mechanic Name Role Phone Rishi Chan Primary Care Provider [phone] Reason For Referral No Information Medications Medication SIG (Take, Route, Frequency, Duration) Notes Start Date End Date Status Topamax 200 MG 30 Oral Take 1 tablet by mouth at bedtime; Duration: 0 06/03/2009 Active ZOFRAN ODT 8 mg Tablet, Rapid Dissolve 20 Take 1 tablet sublingually every 8 hours PRN nausea; Duration: 0 *please review for potential update for e-prescription and drug interaction check* 02/06/2009 Active Plan Of Treatment No Information
--- OUTSIDE RECORDS SUMMARY | 2025-06-12 11:15 | XMS_ITS | Encounter Summary ---
Author Organization [facility] Address [address] [facility] [address] [place] [address] Phone Care Team Providers Care French Professor Name Role Phone Vinay Albarado MD Unavailable Juju Rojas EXPEDITER SERVICE ORDER Unavailable [phone] Shanell Patino MD Unavailable [place]Natalie cottrell EXPEDITER SERVICE ORDER Primary Care Provider + Natalie Medrano NP Primary Care Provider + Torsten Causey MD Primary Care Provider Deepthi Stone MD Primary Care Provide r Encounter Details Date Type Department Care Team (Late st Contact Info) Description 08/30/2018 Prep for Surgery [facility] Medical [facility] Orthopedics & Sports Medicine [address] [place] [address] Erna Montano MD [address] [place] [address] Orthopedics & Sports Medicine, [facility]. [place], [place] [id number] Social History Tobacco Use Types Packs/Day Years [...] on filedocumented in this encounter Care Teams French Professor Relationship Specialty Start Date End Date Natalie Medrano NP [address] [place] [address] PCP - General Family Medicine 06/21/19 11/04/19 Natalie Medrano NP [address] [place] [address] PCP - General Family Medicine 11/21/19 02/21/20 Torsten Causey MD [address] [place] [address] PCP - General 02/22/20 08/18/22 Deepthi Stone MD [address] [place] [address] PCP - General Internal Medicine 08/19/22 [place] [address] Historical LMR Provider 06/04/17 08/22/21 Juju Rojas NP [address] [place] [address] Historical LMR Provider 06/04/17 08/22/21 Shanell Patino MD [address] [place] [address] Orthopedics & Sports Medicine, [facility] [place] [address] Historical LMR Provider 06/04/17 documented as of this encounter Additional Source Comments The information contained in this document represents components of the legal health record. It is not the complete legal health record.[facility]
--- OUTSIDE RECORDS SUMMARY | 2025-06-12 11:15 | XMS_ITS | Encounter Summary ---
Author Organization [facility] Address [address] [facility] [address] [place] [address] Phone Care Team Providers Care Advanced Quality Engineer Name Role Phone Vinay Albarado MD Unavailable [phone] Juju Rojsa HISTORY CARD CLERK Unavailable [phone] Shanell Patino MD Unavailable Natalie Medrano HISTORY CARD CLERK Primary Care Provider + Natalie Medrano NP Primary Care Provider + Torsten Causye MD Primary Care Provider Deepthi Stone MD Primary Care Provide r Encounter Details Date Type Department Care Team (Late st Contact Info) Description 09/22/2018 Procedure Pass OR Admitting Dept - Virtual Department [address] [place] [address] Social History Tobacco Use Types Packs/Day Years [...] on filedocumented in this encounter Care Teams Advanced Quality Engineer Relationship Specialty Start Date End Date Natalie Medrano NP [address] [place] [address] PCP - General Family Medicine 06/21/19 11/04/19 Natalie Medrano NP [address] [address] PCP - General Family Medicine 11/21/19 02/21/20 Torsten Causey MD [address] [place] [address] PCP - General 02/22/20 08/18/22 Deepthi Stone MD [address] [place] [address] PCP - General Internal Medicine 08/19/22 [place] [address] [email or web address] Historical LMR Provider 06/04/17 08/22/21 Juju Rojas NP [address] [place] [address] Historical LMR Provider 06/04/17 08/22/21 Shanell Patino MD [address] [place] [address] Orthopedics & Sports Medicine, [facility] [place] [address] Historical LMR Provider 06/04/17 documented as of this encounter Additional Source Comments The information contained in this document represents components of the legal health record. It is not the complete legal health record.[facility]
--- OUTSIDE RECORDS SUMMARY | 2025-06-12 11:15 | XMS_ITS | Encounter Summary ---
Author Organization [facility] Address [address] [place] [address] Care Team Providers Care Auriculotherapist Name Role Phone Deepthi Stone Primary Care Provider [phone] Encounter Details Date Type Department Care Team (Late st Contact Info) Description 05/19/2023 Telephone [facility] Patient Access Center [address] [place] [address] Telephone Intake, Staff Social History Tobacco Use [...] office requesting a fax with appointment information [phone]. Referral unader media documented in this encounter Plan of Treatment Not on file documented as of this encounter Visit Diagnoses Not on filedocumented in this encounter Care Teams Auriculotherapist Relationship Specialty Start Date End Date Deepthi Stone [address] [place] [phone] PCP - General Internal Medicine 06/28/24 documented as of this encounter
--- OUTSIDE RECORDS SUMMARY | 2025-06-12 11:15 | XMS_ITS | Encounter Summary ---
Author Organization [facility] Address [address] [facility] [address] [place] [address] Phone Care Team Providers Care Machine Strap Buckler Name Role Phone Vinay Albarado MD Unavailable Juju Rojas COMMAND POST CRAFTSMAN Unavailable [phone] Shanell Patino MD Unavailable Natalie Medrano COMMAND POST CRAFTSMAN Primary Care Provider + Natalie Medrano NP Primary Care Provider + Torsten Causey MD Primary Care Provider Deepthi Stone MD Primary Care Provide r Encounter Details Date Type Department Care Team (Late st Contact Info) Description 08/31/2019 Procedure Pass OR Admitting Dept - Virtual Department [address] [place] [address] Social History Tobacco Use Types Packs/Day Years [...] on filedocumented in this encounter Care Teams Machine Strap Buckler Relationship Specialty Start Date End Date Natalie Medrano NP [address] [place] [address] PCP - General Family Medicine 06/21/19 11/04/19 Natalie Medrano NP [address] [address] PCP - General Family Medicine 11/21/19 02/21/20 Torsten Causey MD [address] [place] [address] PCP - General 02/22/20 08/18/22 Deepthi Stone MD [address] [place] [address] PCP - General Internal Medicine 08/19/22 [place] [address] [email or web address] Historical LMR Provider 06/04/17 08/22/21 Juju Rojas NP [address] [place] [address] Historical LMR Provider 06/04/17 08/22/21 Shanell Patino MD [address] [place] [address] Orthopedics & Sports Medicine, [facility] [place] [address] Historical LMR Provider 06/04/17 documented as of this encounter Additional Source Comments The information contained in this document represents components of the legal health record. It is not the complete legal health record.[facility]
--- OUTSIDE RECORDS SUMMARY | 2025-06-12 11:15 | XMS_ITS | Encounter Summary ---
Author Organization [facility] Address [address] [facility] [address] [place] [address] Phone Care Team Providers Care Paving Plant Operator Name Role Phone Vinay Albarado MD Unavailable Juju Rojas PROSTHETIC TECHNICIAN Unavailable [phone] Shanell Patino MD Unavailable [phone] Natalie Medrano PROSTHETIC TECHNICIAN Primary Care Provider + Natalie Medrano NP Primary Care Provider + Torsten Causey MD Primary Care Provider Deepthi Stone MD Primary Care Provide r Encounter Details Date Type Department Care Team (Late st Contact Info) Description 05/03/2018 Procedure Pass [address] [address] Social History Tobacco Use Types Packs/Day Years [...] on filedocumented in this encounter Care Teams Paving Plant Operator Relationship Specialty Start Date End Date Natalie Medrano NP [address] [place] [address] PCP - General Family Medicine 06/21/19 11/04/19 Natalie Medrano NP [address] [address] PCP - General Family Medicine 11/21/19 02/21/20 Torsten Causey MD [address] [place] [address] PCP - General 02/22/20 08/18/22 Deepthi Stone MD [address] [place] [address] PCP - General Internal Medicine 08/19/22 [place] [address] Historical LMR Provider 06/04/17 08/22/21 Juju Rojas NP [address] [place] [address] Historical LMR Provider 06/04/17 08/22/21 Shanell Patino MD [address] [place] [address] Orthopedics & Sports Medicine, [place] [address] Historical LMR Provider 06/04/17 documented as of this encounter Additional Source Comments The information contained in this document represents components of the legal health record. It is not the complete legal health record.[facility]
--- OUTSIDE RECORDS SUMMARY | 2025-06-12 11:15 | XMS_ITS | Clinical Summary ---
Author Organization [facility] Address [address] [facility] [address] [place] [address] Phone Care Team Providers Care Habilitation Assistant Name Role Phone Deepthi Stone MD Primary [...] acupuncture versus steroid injection as offered by painter structural steel etc. Assessment & Plan (02/06/2020 2:49 PM [...] (2 of 2 - PCV) 12/28/2021 06/14/2017 RSV VACCINE (1 - Risk 50-74 years 1-dose series) 12/28/2021 ZOSTER VACCINES (1 of 2) 12/28/2021 SCREENING FOR DIABETES 10/17/2022 10/18/2019 INFLUENZA VACCINE (#1) 2025 , 06/15/2021, 07/03/2020, Additional history exists COVID-19 VACCINE (2024- season) 2025 06/30/2022, 01/05/2022, 06/15/2021, Additional history exists SMOKING [...] this topic Medical Devices Implanted Type Area Human Development Professor Device Identifier Shelf Expiration Date Model / Serial / Lot Control Device Control Device Uterus Description:IUD Insurance H[place] [address] [place] [address] [place] [address] [place] [address] [place] [place] [address] [place] [address]O [facility] Advance Directives For more information, please contact: [phone] (9AM - 5PM [facility], Tuesday-Tuesday) * Full Code (Presumed) (Latest Code Status on File) Date Activated Date Inactivated Comments 08/31/2019 9:18 AM 08/31/2019 4:58 PM * Full Code (Presumed) Date Activated Date Inactivated Comments 09/22/2018 8:52 AM 09/22/2018 4:40 PM Care Teams Habilitation Assistant Relationship Specialty Start Date End Date Deepthi Stone MD [address] [place] [address] PCP - General Internal Medicine 08/19/22 Additional Source Comments The information contained in this document represents components of the legal health record. It is not the complete legal health record.[facility]
== END 2025-06-12 09:30 | disposition home or self-care (01) ==
LOC: HO.LAB 09:29
PROVIDERS: PCP Internal Medicine; Visit Provider Internal Medicine Gastroenterology
DX: K75.81 Nonalcoholic steatohepatitis (NASH) (principal); K52.9 Noninfective gastroenteritis and colitis, unspecified
CPT/HCPCS: 36415; 80053; 85025; 86140

== ENCOUNTER 2025-06-13 12:36 | Outpatient (REF) | payer OTHER, SELFPAY ==
[2025-06-13 14:12] LABS: CDiff Gene PCR NEGATIVE (Negative)
[2025-06-13 15:01] LABS: E. coli EAEC Not Detected (Not Detect.); E. coli EPEC Not Detected (Not Detect.); E. coli ETEC Not Detected (Not Detect.); E. coli STEC Not Detected (Not Detect.); Shigella sp./EIEC Not Detected (Not Detect.)
--- OUTSIDE RECORDS SUMMARY | 2025-06-13 15:28 | XMS_ITS | Clinical Summary ---
Author Organization [facility] Address [address] [employer] [facility] [address] [place] [address] Phone Care Team Providers Care Electronic Scale Subassembler Name Role Phone Deepthi Stone MD Primary [...] acupuncture versus steroid injection as offered by roof cement and paint maker helper etc. Assessment & Plan (02/06/2020 2:49 PM [...] this topic Medical Devices Implanted Type Area Brass Molder Helper Device Identifier Shelf Expiration Date Model / Serial / Lot Control Device Control Device Uterus Description:IUD Insurance HMO [address] [place], [place] [address] [place], [place] [address] [place], [place] [address] [place] [place] [address] [place], [place] [address]O [facility] H[facility] Advance Directives For more information, please contact: [phone] (9AM - 5PM [facility], Tuesday-Tuesday) * Full Code (Presumed) (Latest Code Status on File) Date Activated Date Inactivated Comments 08/31/2019 9:18 AM 08/31/2019 4:58 PM * Full Code (Presumed) Date Activated Date Inactivated Comments 09/22/2018 8:52 AM 09/22/2018 4:40 PM Care Teams Electronic Scale Subassembler Relationship Specialty Start Date End Date Deepthi Stone MD [address] [place] [address] PCP - General Internal Medicine 08/19/22 Additional Source Comments The information contained in this document represents components of the legal health record. It is not the complete legal health record.[facility]
--- OUTSIDE RECORDS SUMMARY | 2025-06-13 15:28 | XMS_ITS | Encounter Summary ---
Author Organization [facility] Address [address] [place] [address] Care Team Providers Care Sec Reporting Consultant Name Role Phone Deepthi Stone Primary Care Provider [phone] Encounter Details Date Type Department Care Team (Late st Contact Info) Description 05/19/2023 Telephone [facility] Patient Access Center [address] [place] [address] Telephone Intake, Staff Social History Tobacco Use [...] office requesting a fax with appointment information [phone]. Referral unader media documented in this encounter Plan of Treatment Not on file documented as of this encounter Visit Diagnoses Not on filedocumented in this encounter Care Teams Sec Reporting Consultant Relationship Specialty Start Date End Date Deepthi Stone [address] [place] [phone] PCP - General Internal Medicine 06/28/24 documented as of this encounter
--- OUTSIDE RECORDS SUMMARY | 2025-06-13 15:28 | XMS_ITS | Clinical Summary ---
Author Organization [facility] Address [address] [place] [address] Care Team Providers Care Emergency Room Specialist Name Role Phone Deepthi Stone Primary Care Provider [phone] Allergies Active Allergy Reactions Criticality Noted Date [...] 75+ series) 12/28/2046 Insurance [employer] Care Teams Emergency Room Specialist Relationship Specialty Start Date End Date Deepthi Stone [address] [place] [address] PCP - General Internal Medicine 06/28/24
--- OUTSIDE RECORDS SUMMARY | 2025-06-13 15:28 | XMS_ITS | Patient Health Record ---
Author Organization [facility] Address [address] [place] [address] Care Team Providers Care Dumping Machine Operator Name Role Phone Rishi Chan Primary Care Provider [phone] Reason For Referral No Information Medications Medication [...]
--- OUTSIDE RECORDS SUMMARY | 2025-06-13 15:28 | XMS_ITS | Encounter Summary ---
Author Organization [facility] Address [address] [facility] [address] [place] [address] Phone Care Team Providers Care Optics Test Technician Name Role Phone Vinay Albarado MD Unavailable Juju Rojas LIQUIFIED NATURAL GAS SPECIALIST Unavailable Shanell Patino MD Unavailable VeniceNatalie cottrell LIQUIFIED NATURAL GAS SPECIALIST Primary Care Provider + Natalie Medrano NP [...] Expiration Date Visits Re quested Visits Authorized [id number] Closed 08/19/2017 08/19/2018 1 1 Encounter Details Date Type Department Care Team (Latest Contact Info) Description 08/19/2017 Ancillary Orders Virtual Department [address] [place] [address] David Doll MD [address] [address] [email or web address] Vomiting, intractability of vomiting not specified, presence [...] is of questionable clinical significance. POS - [id number] Narrative 08/24/2017 1:10 PM EST HISTORY: Nausea, [...] is of questionable clinical significance. POS - [id number] David Doll MD IMG NM [id number] Final Resu lt documented in this encounter Visit Diagnoses Diagnosis Vomiting, intractability of vomiting not specified, presence of nausea not specified, unspecified vomiting type Nausea Nausea alone Vomiting, intractability of vomiting not specified, presence of nausea not specified, unspecified vomiting type Nausea Nausea alone documented in this encounter Care Teams Optics Test Technician Relationship Specialty Start Date End Date Natalie Medrano NP [address] [place] [address] PCP - General Family Medicine 06/21/19 11/04/19 Natalie Medrano NP [address] [place] [address] PCP - General Family Medicine 11/21/19 02/21/20 Torsten Causey MD [address] [place] [address] PCP - General 02/22/20 08/18/22 Deepthi Stone MD [address] [place] [address] [address] [place] [address] PCP - General Internal Medicine 08/19/22 [place] [address] [email or web address] Historical LMR Provider 06/04/17 08/22/21 Juju Rojas NP [address] [place] [address] [email or web address] Historical LMR Provider 06/04/17 08/22/21 Shanell Patino MD [address] [place] [address] Orthopedics & Sports Medicine, [place] [address] [email or web address] Historical LMR Provider 06/04/17 documented as of this encounter Additional Source Comments The information contained in this document represents components of the legal health record. It is not the complete legal health record.[facility]
--- OUTSIDE RECORDS SUMMARY | 2025-06-13 15:28 | XMS_ITS | Encounter Summary ---
Author Organization [facility] Address [address] [facility] [address] [place] [address] Phone Care Team Providers Care Stone Operator Name Role Phone Vinay Albarado MD Unavailable Juju Roajs ANALYSIS CONSULTANT Unavailable [phone] Shanell Patino MD Unavailable [phone] Palm BayNatalie cottrell ANALYSIS CONSULTANT Primary Care Provider + Natalie Medrano NP Primary Care Provider + Torsten Causey MD Primary Care Provider Deepthi Stone MD Primary Care Provide r Encounter Details Date Type Department Care Team (Late st Contact Info) Description 07/24/2019 Prep for Surgery [facility] Medical [facility] Orthopedics & Sports Medicine [address] [place] [address] Erna Montano MD [address] [place] [address] Orthopedics & Sports Medicine, [facility]. [place], [place] [id number] [email or web address] Social History Tobacco Use Types Packs/Day Years [...] on filedocumented in this encounter Care Teams Stone Operator Relationship Specialty Start Date End Date Natalie Medrano NP [address] [place] [address] PCP - General Family Medicine 06/21/19 11/04/19 Natalie Medrano NP [address] [place] [address] PCP - General Family Medicine 11/21/19 02/21/20 Torsten Causey MD [address] [place] [address] PCP - General 02/22/20 08/18/22 Deepthi Stone MD [address] [place] [address] PCP - General Internal Medicine 08/19/22 [place] [address] Historical LMR Provider 06/04/17 08/22/21 Juju Rojas NP [address] [place] [address] Historical LMR Provider 06/04/17 08/22/21 Shanell Patino MD [address] [place] [address] Orthopedics & Sports Medicine, [place] [address] Historical LMR Provider 06/04/17 documented as of this encounter Additional Source Comments The information contained in this document represents components of the legal health record. It is not the complete legal health record.[facility]
--- OUTSIDE RECORDS SUMMARY | 2025-06-13 15:29 | XMS_ITS | Encounter Summary ---
Author Organization [facility] Address [address] [facility] [address] [place] [address] Phone Care Team Providers Care Wellness Trainer Name Role Phone Vinay Albarado MD Unavailable Juju Rojas PRODUCTION LINE OPERATOR Unavailable [phone] Shanell Patino MD Unavailable [place]oc[place]Natalie cottrell PRODUCTION LINE OPERATOR Primary Care Provider + Natalie Medrano NP Primary Care Provider + Torsten Causey MD Primary Care Provider Deepthi Stone MD Primary Care Provide r Encounter Details Date Type Department Care Team (Late st Contact Info) Description 08/30/2018 Prep for Surgery [facility] Orthopedics & Sports Medicine [address] [place] [address] Erna Montano MD [address] [place] [address] Orthopedics & Sports Medicine, [facility]. [place], [place] [phone] Social History Tobacco Use Types Packs/Day Years [...] on filedocumented in this encounter Care Teams Wellness Trainer Relationship Specialty Start Date End Date Natalie Medrano NP [address] [place] [address] PCP - General Family Medicine 06/21/19 11/04/19 Natalie Medrano NP [address] [place] [address] PCP - General Family Medicine 11/21/19 02/21/20 Torsten Causey MD [address] [place] [address] PCP - General 02/22/20 08/18/22 Deepthi Stone MD [address] [place] [address] PCP - General Internal Medicine 08/19/22 [place] [address] Historical LMR Provider 06/04/17 08/22/21 Juju Rojas NP [address] [place] [address] Historical LMR Provider 06/04/17 08/22/21 Shanell Patino MD [address] [place] [address] Orthopedics & Sports Medicine, [facility] [place] [address] Historical LMR Provider 06/04/17 documented as of this encounter Additional Source Comments The information contained in this document represents components of the legal health record. It is not the complete legal health record.[facility]
--- OUTSIDE RECORDS SUMMARY | 2025-06-13 15:29 | XMS_ITS | Data Portability ---
Author Organization [facility] [address] Address [address] [place] [address] Assessment Encounter Date Assessment Date Assessment LastModified by Organization Details LastModified Time 04/18/2024 04/18/2024 Patient was seen in the office today for nausea. Reviewed history regarding recent illness, medications, symptoms, and physical exam. Studies ordered as below. Discussed plan with , who expresses understanding . Follow up as noted below. [email or web address] Not available 04/18/2024 20:10:07 Plan of Treatment Reminders Order Date Submit Date Provider Last Modified By Organization Details Last Modified Time Details Appointments None recorded. Lab None recorded. Referral orthopedic surgeon referral 2024 025 [email or web address] Not available 12:29:24 Procedures None recorded. Surgeries None recorded. Imaging None recorded. Medication Orders tizanidine 4 mg tablet [address] [facility] #[id number], [address] [place], [address], 5 12:08:21 albuterol sulfate 2.5 mg/3 mL (0.083 %) solution for nebulizatio n [address] [facility] #0838, [address] [place], [address], 5 11:44:30 benzonatate 200 [address] capsule [address] [facility] #0838, [address] [place], [address], 11:44:45 albuterol sulfate HFA 90 mcg/actuati on aerosol inhaler [email or web address] [facility] #0838, [address] [place], [address], 13:55:51 doxycycline hyclate 100 [address] capsule [address] [facility] #0838, [address] [place], [address], 5 11:45:33 Zofran 4 [address] [facility] #0838, [address] [place], [address], 11:46:16 Patient TargetsNo targets recorded. Patient Instructions Encounter Date Encounter Id Patient Instructions Last Modified By Organization Details Last Modified Time 04/18/2024 [id number] nausea and vomiting: care instructions Not available [...] No more than 4 tablets a day. [email or web address] Not available 04/18/2024 20:10:23 08/17/2024 [id number] Aerochamber How to use the Aerochamber Attach the inhaler to the chamber [place] 2 puffs in to the chamber Put the chamber in your mouth with you lips closed around it Take 3 separate breaths from the chamber. Don't breath into the chamber. [email or web address] Not available 08/17/2024 12:18:13 08/25/2024 [id number] shoulder pain: care instructions [email or web address] Not available 08/25/2024 12:08:19 Reason for Referral Orthopedic Surgeon Referral for Pain of left shoulder joint Referring Physician: Valentino Hackett, Urgent Care, Encounter Date: 08/25/2024 Problems Name Problem SNOMED Code Status Onset Date Resolution Date Notes Provider Name and Address Organization Details Recorded Time Diabetes mellitus 17293026 Active Heather Elías null, PA - [facility] 5 11:38:12 Depressive disorder 21968857 Active Heather Elías null, PA - [facility] 5 11:38:20 Anxiety 84628471 Active Heather Elías null, PA - [facility] 5 11:38:26 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 Medical Equipment None Reported. Allergies Allergen ID Allergen Name Allergen Category Reaction Reaction Severity Criticality Documentation Date Start Date Code Code System Note Provider Name and Address Organization Details Recorded Time 3468467 amitripty line medicatio n Not available Not available Not available 08/17/2024 704 RxNorm Heather Mckinley null, PA - [facility] 11:37:23 9254128 Risperdal medicatio n Not available Not available Not available 08/17/2024 95093 8 RxNorm Heather crane, PA - [facility] 11:37:43 7429060 Topamax medicatio n Not available Not available Not available 08/17/2024 36903 3 RxNorm Heather Mckinley null, PA - [facility] 11:37:49 Medications Name [...] active Not Available Not Available Not Avai labgrabiel dicyclomi ne 10 mg capsule TAKE 1 [...] Heart rate Respiratory rate Body temperature Systolic And Diastolic Provider Name and Address Organization Details Last Updated DateTime 5 160.02 cm 52.6 kg/m2 407753. 93 g 100 % 100 % 94 /min 18 /min 98.4 [degF] 105/75 mm[Hg] Heather Mckinley PA - [facility] 5 11:36:35 Date Recorded Body height Body mass index (BMI) Body weight Oxygen saturation Oxygen saturation in Arterial blood by Pulse oximetry Heart rate Body temperature Systolic And Diastolic Provider Name and Address Organization Details Last Updated DateTime 5 160.02 cm 50.5 kg/m2 488411. 83 g 97 % 97 % 95 /min 98.1 [degF] 115/81 mm[Hg] Yusra Raphael PA - [facility] 5 11:42:35 Date Recorded Body height Body mass index (BMI) Body weight Oxygen saturation Oxygen saturation in Arterial blood by Pulse oximetry Heart rate Respiratory rate Body temperature Systolic And Diastolic Provider Name and Address Organization Details Last Updated DateTime 4 160.02 cm 52.6 kg/m2 673389. 93 g 99 % 99 % 91 /min 16 /min 98.1 [degF] 117/80 mm[Hg] Ninfa Bailey PA - [facility] 20:16:44 Social History Question Answer Notes LastModified by Organizat ion Details LastModified Time Tobacco Smoking Status Never Smoker Yusra Huffmanreny crane, PA - [facility] 08/25/2024 11:48:23 Have You Had A Flu Shot This Season? Yes Information not available 08/25/2024 If No, Would You Like A Flu Shot Today? A/P Information not available 08/25/2024 What Is Your Relationship Status? Information not available 08/25/2024 Are You Passively Exposed To Smoke? No Information no t available 08/25/2024 Have You Recently Traveled Abroad? No Information not available 08/25/2024 Sex: Unknown Functional Status Question Answer Note LastModified by Organization D etails LastModified Time What is your level of alcohol consumption? None Information not available 08/25/2024 Are you currently employed? No Information not available 08/25/2024 Mental Status None recorded. Family History Relationship [...] PF, 30 mcg/0.3 mL dose 11/01/2020 completed Nifna Bailey null, PA - [facility] 04/18/2024 [...] Diagnosis SNOMED-CT Code Diagnosis ICD10 Code Diagnosis IMO Codes Diagnosis Note [id number] [facility] [facility] [address] [address] 03/11/2022 08:20:20 03/11/2022 09:08:[id number] [place] [address] [address] 07/26/2021 16:39:35 07/26/2021 18:39:[id number] [place] [address] [address] [facility] [address] 08/27/2018 17:50:03 08/27/2018 18:45:[id number] [place] [address] _[address] [address] 01/15/2018 15:20:20 01/15/2018 15:49:11 [id number] Abi Palomares NP _[address] [address] 04/18/2024 18:48:41 04/18/2024 20:44:15 Acute gastroenteritis 65717592 K52.9 If your doctor prescribed antibiotic s, [...] ice cream until you are feeling better. [id number] [place] [address] [address] 08/17/2024 11:12:33 08/17/2024 12:57:12 Persistent cough 549374619 R05.3 CoughBlack Elderberry Syrup:1-2 tsp 2-3 times a day for 5 days as needed for coughing.S ambucol Black Elderberry Original Syrup (available at [employer] )[employer] Black Elderberry Syrup, 5.4-Ounce Bottle (available at [employer] or Staff Ranker) Use a cool mist humidifier in the room that you sleep to add moisture to the air, which should soothe the airways and help loosen any mucus that may be present. Asthmatic bronchitis 405 297851 J45.909 [id number] [place] [address] [address] 08/25/2024 11:18:21 08/25/2024 12:29:24 Pain of left shoulder joint [id number] 6026767 M25.512 msk pain v OA v internal [...] Recorded Advance Directives Directive None Recorded Payers Insurance Date Sequence Insurance Name Policy Number Policy Durand Covered Member ID Durand Member ID Guarantor Name 08/25/2024 1 [facility] [id number] Roni Hall [id number] Birdie Hall Notes Date Note Type Note Provider Name [...] Abi Palomares NP [address] [place], [address], [place] - [facility] 04/22/2024 18:32:56 08/17/2024 text/html 53 y F c/o harsh cough with chest congestion x 1 week. Hx of asthma until last year. She is taking no asthma medications. There have been no sick contacts. Afebrile, no SOB, no wheezing. FELIX TUCKER MD [address] [place], [address], [place] PA - [facility] 08/17/2024 14:21:26 08/25/2024 text/html Shoulder UCRepor bertha by [email or web address] yo fmale c/o L shoulder zaragoza x 2 d has h/o shoulder pain x > 1 y no h/o traumano swellingno rednessno rashno bruisingno numbness or tingling in the arm - has h/o numbness in hand 2/2 ulnar nurveno weakness did not try any OTC meds RHD but is ambidextrousROS as noted in the HPI Valentino Hackett DO [address] [place], [address], PA - [facility] 08/25/2024 12:14:05 OBGyn Episode No OBEpisode recorded.
--- OUTSIDE RECORDS SUMMARY | 2025-06-13 15:29 | XMS_ITS | Encounter Summary ---
Author Organization [facility] Address [address] [facility] [address] [place] [address] Phone Care Team Providers Care Pan Devulcanizer Helper Name Role Phone Vinay Albarado MD Unavailable Juju Rojas ELECTRIC MOTOR MECHANIC Unavailable [phone] Shanell Patino MD Unavailable [phone] Natalie Medrano ELECTRIC MOTOR MECHANIC Primary Care Provider + Natalie Medrano NP Primary Care Provider + Torsten Causey MD Primary Care Provider Deepthi Stone MD Primary Care Provide r Encounter Details Date Type Department Care Team (Late st Contact Info) Description 09/22/2018 Procedure Pass OR Admitting Dept - Virtual Department [address] [place] [id number] Social History Tobacco Use Types Packs/Day Years [...] on filedocumented in this encounter Care Teams Pan Devulcanizer Helper Relationship Specialty Start Date End Date Natalie Medrano NP [address] [place] [address] PCP - General Family Medicine 06/21/19 11/04/19 Natalie Medrano NP [address] [address] PCP - General Family Medicine 11/21/19 02/21/20 Torsten Causey MD [address] [place] [address] PCP - General 02/22/20 08/18/22 Deepthi Stone MD [address] [place] [address] PCP - General Internal Medicine 08/19/22 [place] [address] [email or web address] Historical LMR Provider 06/04/17 08/22/21 Juju Rojas NP [address] [place] [address] Historical LMR Provider 06/04/17 08/22/21 Shanell Patino MD [address] [place] [address] Orthopedics & Sports Medicine, [facility] [place] [address] Historical LMR Provider 06/04/17 documented as of this encounter Additional Source Comments The information contained in this document represents components of the legal health record. It is not the complete legal health record.[facility]
--- OUTSIDE RECORDS SUMMARY | 2025-06-13 15:29 | XMS_ITS | Encounter Summary ---
Author Organization [facility] Address [address] [employer] [facility] [address] [place] [address] Phone Care Team Providers Care Tie Knitter Helper Name Role Phone Vinay Albarado MD Unavailable [phone] Juju Rojas CASE MONITOR Unavailable [phone] Shanell Patino MD Unavailable [phone] Natalie Medrano CASE MONITOR Primary Care Provider + Natalie Medrano NP Primary Care Provider + Torsten Causey MD Primary Care Provider Deepthi Stone MD Primary Care Provide r Encounter Details Date Type Department Care Team (Late st Contact Info) Description 05/03/2018 Procedure Pass [address] [address] Social History Tobacco Use Types Packs/Day Years [...] on filedocumented in this encounter Care Teams Tie Knitter Helper Relationship Specialty Start Date End Date Natalie Medrano NP [address] [place] [address] PCP - General Family Medicine 06/21/19 11/04/19 Natalie Medrano NP [address] [address] PCP - General Family Medicine 11/21/19 02/21/20 Torsten Causey MD [address] [place] [address] PCP - General 02/22/20 08/18/22 Deepthi Stone MD [address] [place] [address] PCP - General Internal Medicine 08/19/22 [place] [address] Historical LMR Provider 06/04/17 08/22/21 Juju Rojas NP [address] [place] [address] Historical LMR Provider 06/04/17 08/22/21 Shanell Patino MD [address] [place] [address] Orthopedics & Sports Medicine, [facility] [address] Historical LMR Provider 06/04/17 documented as of this encounter Additional Source Comments The information contained in this document represents components of the legal health record. It is not the complete legal health record.[facility]
--- OUTSIDE RECORDS SUMMARY | 2025-06-13 15:29 | XMS_ITS | Clinical Summary ---
Author Organization [facility] Address [address] [place] [address] Care Team Providers Care Farm Tractor Operator Name Role Phone Unavailable Primary Care Provider Unavailabl e Surgical History Surgery Date Site/Laterality Comments BARIATRIC SURGERY PROCEDURE: [place] GSTRC RSTRICTIV PX LONGITUDINAL GASTRECTOMY OTHER SURGICAL HISTORY PROCEDURE: [place] RPR PARAESPHGL HRNA INCL FUNDPLSTY W/O [...]
--- OUTSIDE RECORDS SUMMARY | 2025-06-13 15:29 | XMS_ITS | Data Portability ---
Author Organization [place] - [facility], [facility] Address [address] [place] [id number] Assessment Encounter Date Assessment Date Assessment LastModified by Organization Details LastModified Time 01/21/2020 01/21/2020 Overview/History : This is a 49-year-old female that is a new patient [facility]. She has a history significant for fibromyalgia, diagnosed sciatica, osteoarthritis, migraines and depression anxiety. She has been having chronic back pain since she was 19. She is reporting that her back pain has been getting worse over the past 3 months. She has been on multiple courses of steroids without significant relief. She reports some areas of numbness of her lower extremities, these areas seem to move, she denies saddle numbness or incontinence. Exam: On exam patient is awake and alert, nontoxic appearing and hemodynamically stable. She is able to ambulate with a steady gait, she was able to perform heel and toe walking without difficulty. She did have pain with palpation of lumbar spine area. She was able to bend forward and reach her toes without significant pain. No gross abnormalities noted on physical exam. DDx considered, but not limited to:Acne can be due to already diagnosed with sciatica, it is also possible she may have exacerbated this with physical activity and may have a component of mechanical low back pain. Degenerative disc disease possible cauda equina unlikely as patient is denying saddle numbness or incontinence. Work up/Results:Physica l exam only, lumbar x-ray films deferred as patient has already had those completed in this calendar year. Plan/Discussion:I discussed with the patient that her pain tends more of a chronic issue and would probably be best managed by her PCP. I did explain there is no place for getting repeat plain films as her no new trauma since her previous films were completed. She is intolerant to NSAIDs so her only derc-qob-qfsuocn pain medication options as Tylenol, I told her to take this 1000 mg every 8 hours, I told her to not exceed more than 4000 mg per day. I did tell her that though the tramadol was helpful for her that we do not prescribe controlled substances [facility], I discussed the importance of trying to stretch and be mobile, I also suggested she try heat for comfort. We discussed possibly trying other adjunct practices such as acupuncture. I referred her to her PCP for further management of her pain medications. She is already on pretty high doses of gabapentin, PCP could consider trialing her on other agents such as Cymbalta or Lyrica. The patient tells me she has already been to pain services in the past and did not have a good experience there. I have asked her to contact your PCP tomorrow to discuss the possibilities of getting advanced imaging for her. I did review ER precautions with the patient and she verbalized understanding. In order to obtain further information and compare any laboratory results/values, I have accessed patient records on the [employer]. This information was pertinent in my medical decision making today. Proper Personal Protective Equipment (PPE), including gloves, eye protection and masks were donned and doffed appropriately and all equipment cleaned using approved technique with germicidal disposable wipes prior to and after care of this patient according to [facility]'s infection prevention protocols. [email or web address] Not available 01/21/2020 19:23:10 Plan of Treatment Reminders Order Date Submit Date Provider Last Modified By Organization Details Last Modified Time Details Appointments None record ed. Lab None record ed. Referral None record ed. Procedures None record ed. Surgeries None record ed. Imaging None record ed. Medication Orders None record ed. Patient TargetsNo targets recorded. Patient Instructions Encounter Date Encounter Id Patient Instructions Last Modified By Organization Details Last Modified Time 01/21/2020 [id number] learning about relief for back pain [email or web address] Not available 01/21/2020 19:23:21 back pain exerci se education [email or web address] Not available 01/21/2020 19:23:20 WE CAME TO SEE [facility] TODAY FOR EVALUATION FOR BACK PAIN. THIS SOUNDS LIKE IT IS A CHRONIC ISSUE, YOU HAVE ALREADY HAD PLAN XRAY FILMS THIS YEAR I SUSPECT THAT YOU MAY NEED MORE ADVANCED IMAGING TO GET A BETTER LOOK AT WHAT IS GOING ON. PLEASE FOLLOW UP WITH PCP TOMORROW TO ARRANGE FOR THIS. A COPY OF MY NOTE IS BEING SENT TO HIM TODAY. PLEASE CONTINUE TO TAKE TYLENOL NEEDED FOR PAIN, 1000MG EVERY 8 HOURS. YOU CAN ALSO TRY HEAT TO SEE IF THIS HELPS. PLEASE TRY TO MOVE DURING THE DAY BEING SEDENTARY WILL MAKE YOUR BACK PAIN WORSE. IF YOU START TO DEVELOP NUMBNESS IN YOUR BUTTOCKS OR INCONTINENCE THIS IS AN EMERGENCY AND YOU NEED TO GO TO THE EMERGENCY ROOM. Thank you for your [facility] with [facility] today. We cannot always find the exact cause of your symptoms during your initial visit. Please follow up with your primary care provider or specialist within 24-48 hours to be rechecked or seek medical attention if your symptoms do not go away or get worse. If you develop any new or worsening symptoms and need after hours care, please go to nearest ER and/or call 911. If you have additional concerns or develop a change in your condition between 8am-10pm, please call [facility] at [phone] to help navigate your care. Thank you for your visit with [facility] today. You were seen today for abdominal pain, nausea, vomiting and/or diarrhea. Medications may have been administered and lab tests may have been performed. At this time, we do not see evidence of a serious surgical or infectious cause of your symptoms. However, lab tests and an evaluation cannot always exclude appendicitis or other serious causes of abdominal pain. Please see a medical professional in 12-24 hours to be re-examined. Seek immediate medical attention for increased pain, vomiting or fever. If you develop any new or worsening symptoms and need after hours care, please go to nearest ER and/or call 911. If you have additional concerns or develop a change in your condition between 8am-10pm, please call [facility] at [phone] to help navigate your care. Back Pain - Discharge Instructions Basic Information: Back pain is a common problem, and has many different causes. Most back pain will improve within 2 weeks of onset. Common causes include lifting, twisting movements, overuse, unusual movements, stress, prolonged sitting, poor posture, being overweight and less commonly structural issues such as disc problems(sciatica) or fractures. X-rays and MRI s are rarely indicated unless there has been significant trauma, if you are having certain abnormal neurologic abnormalities, or if you have certain underlying medical conditions that can cause spinal problems. Instructions: Avoid heavy lifting, bending ,twisting or prolonged sitting. Be as active as you can comfortably be, walking often makes back pain feel better. Be sure to change position at least every 2 hours to avoid stiffening up. BED REST IS NOT RECOMMENDED FOR BACK PAIN AND WILL MAKE YOU FEEL WORSE! Ice for 15 minutes every 2 hours and after 48 hours you may alternate with moist heat for 15 minutes. DO NOT FALL ASLEEP ON THE HEATING PAD, this will cause the area to swell and hurt more! When getting out of bed, roll to your side, and dangle your legs over the edge of the bed while pushing up with your hand and elbow to a seated position. Place a pillow between your knees while lying on your side, and under your legs when lying on your back to remove stress from the spine. Practice good posture as much as you are able, shoulders back, head up, abdomen pulled in. Gentle stretching, lie on your back and gently hug your knees. When you are feeling better there are many exercises that can help you treat and prevent low back pain, check with your Provider. If you are having pain/numbness going down your legs the Christina exercises are designed to relieve this pain, you can find demonstrations on [employer] will help to relieve stress on your back. Smoking can make back pain worse, try to limit or quit smoking, check with your provider about methods to help stop smoking. Medications: Based on your history and examination your provider will design a medication regimen specifically for your condition, this may include some of the following medications. Acetaminophen/Tyle nol: if you do not have any liver issues. Non-steroidal anti inflammatories/NSA IDS: These category includes ibuprofen (Motrin. Advil) and Naproxen (Aleve/Naprsoyn) and other medications. Anti-inflammatorie s are powerful pain relievers and the first line treatment for back pain. NSAID s should be taken with food. People with kidney disease, hypertension or on blood thinners should not take these medications. Other medications may be prescribed, if they contain muscle relaxants or narcotic pain relievers DO NOT DRINK ALCOHOL, DRIVE OR OPERATE HEAVY MACHINERY WHILE TAKING THESE MEDICATIONS! Follow Up: You will need to follow up with your PCP for reevaluation within a few days If your back pain persists for more than 2 months or your condition deteriorates you may require further evaluation and testing. If you experience worsening and persistent numbness/weakness/ tingling, have numbness of your genitals, inability to urinate or losing urine, severe pain, fever more than 101.5, or are worse go to the ER for further evaluation. If you have additional concerns or develop a change in your condition between 8am-10pm, please call [facility] at [phone] to help navigate your care. [email or web address] Not available 01/21/2020 19:10:00 Reason for Referral None Reported. Procedures Surgical History Date Name Laterality Status Provider Name and Address Organization Details Recorded Time 01/21/20 20 Medication Review completed SIA HERNANDEZ NP [address] [place], [address], [place] [facility] 01/21/2020 19:23:17 Imaging Results None recorded. Procedure Notes None recorded. Medical Equipment None Reported. Allergies Allergen ID Allergen Name Allergen Category Reaction Reaction Severity Criticality Documentation Date Start Date Code Code System Note Provider Name and Address Organization Details Recorded Time [id number] Non-stero idal anti-infl ammatory agent (substanc e) medicatio n Not available Not available Not available 01/21/2020 58708 5008 SNOMED SIA HERNANDEZ NP [address] [place], [address], [place] [facility] 0 18:36:31 111373 amitripty line medicatio n Not available Not available Not available 01/21/2020 704 RxNorm SIA HERNANDEZ NP [address] [place], [address], [place] - [facility] 0 18:36:47 [id number] Risperdal medicatio n Not available Not available Not available 01/21/2020 69595 8 RxNorm SIA HERNANDEZ NP [address] [place], [address], [place] - [facility] 0 18:37:01 Medications Name Sig Start Date Stop Date Status Note LastModified by Organization Details LastModified Time quetiapine 25 mg tablet TAKE 1 TO 2 TABLETS BY MOUTH AT BEDTIME active Not Available Not Available No t Available amoxicillin 500 mg capsule 01/20 completed Not Available Not Available Not Available Anti-Diarrh eal (loperamide ) 2 mg tablet active Not Available Not Available Not Available budesonide 32 mcg/actuati on nasal spray active Not Available Not Available Not Available prednisone 10 mg tablet PLEASE SEE ATTACHED FOR DETAILED DIRECTION S active Not Available Not Available No t Available gabapentin 600 mg tablet active Not Available Not Available Not Available doxycycline hyclate 100 mg capsule active Not Available Not Available N ot Available ipratropium 0.5 mg-albutero l 3 mg (2.5 mg base)/3 mL nebulizatio n soln active Not Available Not Available Not Available trazodone 50 mg tablet active Not Available Not Available Not Available cetirizine 10 mg tablet active Not Available Not Available Not Available azithromyci n 250 mg tablet TAKE 2 TABLETS BY MOUTH TODAY, THEN TAKE 1 TABLET DAILY FOR 4 DAYS active Not Available Not Available No t Available tizanidine 4 mg tablet TAKE 1 TABLET BY MOUTH EVERY 6 HOURS NEEDED active Not Available Not Available No t Available benzonatate 200 mg capsule active Not Available Not Available Not Available hydrocodone 5 mg-acetamin ophen 325 mg tablet TAKE 1 TO 2 TABLETS BY MOUTH EVERY 6 HOURS NEEDED FOR PAIN active Not Available Not Available No t Available FreeStyle Lancets 28 gauge CHECK BLOOD SUGAR TWICE DAILY NEEDED active Not Available Not Available No t Available prednisone 20 mg tablet TAKE 2 TABLETS EVERY DAY FOR 4 DAYS active Not Available Not Available No t Available clonazepam 0.5 mg tablet 01/20 completed Not Available Not Available Not Available sertraline 100 mg tablet TAKE 1 TABLET BY MOUTH EVERY MORNING TAKE WITH THE 50MG TAB active Not Available Not Available No t Available prednisone 5 mg tablet TAKE 1 TABLET BY MOUTH EVERY DAY FOR 30 DAYS active Not Available Not Available No t Available clonazepam 1 mg tablet 01/20 completed Not Available Not Available Not Available hydroxyzine pamoate 50 mg capsule TAKE 1 CAPSULE BY MOUTH EVERY 6 HOURS,X30 DAYS NEEDED ANXIETY active Not Available Not Available No t Available topiramate 25 mg tablet TAKE 1 TABLET AT BEDTIME X1 WK , 2 TABS AT BEDTIME X1 WK, 3 TABS AT BEDTIME THEREAFTE R active Not Available Not Available No t Available metronidazo le 500 mg tablet TAKE 1 TABLET BY MOUTH THREE TIMES A DAY FOR 14 DAYS active Not Available Not Available No t Available tramadol 50 mg tablet TAKE 1/2 TO 1 TABLET DAILY NEEDED ONCE A DAY active Not Available Not Available No t Available bupropion HCl SR 100 mg tablet,12 hr sustained-r elease TAKE 1 TABLET BY MOUTH TWICE A DAY active Not Available Not Available No t Available lamotrigine 25 mg tablet active Not Available Not Available Not Available ofloxacin 0.3 % ear drops active Not Available Not Available Not Available lorazepam 0.5 mg tablet TAKE 1 TABLET BY MOUTH THREE TIMES A DAY NEEDED FOR ANXIETY active Not Available Not Available No t Available metoclopram janie 5 mg tablet TAKE 1 TABLET BY MOUTH EVERY DAY active Not Available Not Available No t Available trazodone 100 mg tablet TAKE 1 TO 2 TABLETS BY MOUTH AT BEDTIME NEEDED active Not Available Not Available No t Available dicyclomine 20 mg tablet TAKE ONE TABLET (20 MG) BY MOUTH TWICE A DAY active Not Available Not Available No t Available benzonatate 100 mg capsule active Not Available Not Available Not Available pantoprazol e 40 mg tablet,lakeisha yed release TAKE 1 TABLET BY MOUTH EVERY DAY active Not Available Not Available No t Available nitrofurant oin macrocrysta l 100 mg capsule TAKE 1 CAPSULE BY MOUTH TWICE A DAY FOR 5 DAYS active Not Available Not Available No t Available ranitidine 300 mg capsule active Not Available Not Available Not Available prednisone 50 mg tablet active Not Available Not Available Not Available bupropion HCl 75 mg tablet active Not Available Not Available Not Available hydrocodone -homatropin e 5 mg-1.5 mg/5 mL oral solution 01/20 completed Not Available Not Available Not Available Gas Relief Extra Strength 125 mg capsule TAKE 1 CAPSULE BY MOUTH 4X A DAY NEEDED FOR GAS X7 DAYS. USE AFTER MEALS & AT BEDTIME ( NEEDED) active Not Available Not Available No t Available gabapentin 300 mg capsule active Not Available Not Available Not Available mupirocin 2 % topical ointment APPLY A SMALL AMOUNT TOP THREE TIMES A DAY active Not Available Not Available No t Available gabapentin 100 mg capsule active Not Available Not Available Not Available zolpidem 10 mg tablet TAKE 1 TABLET BY MOUTH AT BEDTIME NEEDED FOR SLEEP active Not Available Not Available No t Available methylpredn isolone 4 mg tablets in a dose pack active Not Available Not Available Not Available albuterol sulfate HFA 90 mcg/actuati on aerosol inhaler 01/20 completed Not Available Not Available Not Available Nasal Decongestan t (pseudoephe drine) 30 mg tablet active Not Available Not Available No t Available ferrous sulfate 325 mg (65 mg iron) tablet,lakeisha yed release TAKE 1 TABLET BY MOUTH EVERY DAY *NOT CVD PER INS* active Not Available Not Available No t Available ipratropium bromide 42 mcg (0.06 %) nasal spray active Not Available Not Available Not Available ondansetron 4 mg disintegrat ing tablet active Not Available Not Available N ot Available fluticasone propionate 50 mcg/actuati on nasal spray,suspe nsion USE 1 SPRAY INTO EACH NOSTRIL TWICE A DAY 30 DAYS active Not Available Not Available No t Available clotrimazol e 1 % topical cream APPLY EXTERNALL Y TWICE A DAY active Not Available Not Available No t Available sertraline 50 mg tablet TAKE 1 TABLET BY MOUTH ONCE A DAY TAKE WITH THE 100MG TAB (TOTAL DOSE 150MG) active Not Available Not Available No t Available naratriptan 2.5 mg tablet active Not Available Not Available Not Available cholecalcif francisco j (vitamin D3) 125 mcg (5,000 unit) capsule TAKE 1 CAPSULE BY MOUTH EVERY DAY active Not Available Not Available No t Available dicyclomine 10 mg capsule TAKE 1 CAPSULE BY MOUTH 3 TIMES A DAY,FOR 7 DAYS, NEEDED FOR GI UPSET active Not Available Not Available No t Available lamotrigine 100 mg tablet active Not Available Not Available Not Available ipratropium bromide 21 mcg (0.03 %) nasal spray USE 2 SPRAYS INTO EACH NOSTRIL TWICE A DAY active Not Available Not Available No t Available metoclopram janie 10 mg tablet TAKE 1 TAB BY MOUTH 3X A DAY NEEDED FOR NAUSEA & VOMITING X7 DAYS. TAKE BEFORE MEALS & BEDTIME active Not Available Not Available No t Available amoxicillin 875 mg-potassiu m clavulanate 125 mg tablet 01/20 completed Not Available Not Available Not Available amoxicillin 500 mg-potassiu m clavulanate 125 mg tablet 01/20 completed Not Available Not Available Not Available oxycodone 5 mg tablet active Not Available Not Available No t Available OneTouch UltraSoft Lancets USE TO CHECK GLUCOSE TWICE DAILY DX E11.9 active Not Available Not Available No t Available Atrovent HFA 17 mcg/actuati on aerosol inhaler active Not Available Not Available Not Available pregabalin 25 mg capsule TAKE 1 CAPSULE BY MOUTH THREE TIMES A DAY active Not Available Not Available No t Available pregabalin 75 mg capsule TAKE 1 CAPSULE BY MOUTH TWICE A DAY (INCREASE D DOSE) active Not Available Not Available No t Available hydrocodone 5 mg-acetamin ophen 300 mg tablet TAKE 2 TABLETS BY MOUTH EVERY 6 HOURS NEEDED FOR PAIN FOR 3 DAYS active Not Available Not Available No t Available Advair HFA 230 mcg-21 mcg/actuati on aerosol inhaler INHALE 2 PUFFS TWICE A DAY active Not Available Not Available No t Available quetiapine 50 mg tablet TAKE 1 TABLET BY MOUTH EVERYDAY AT BEDTIME active Not Available Not Available No t Available FreeStyle Lite Meter kit CHECK BLOOD SUGAR TWICE DAILY NEEDED active Not Available Not Available No t Available FreeStyle Lite Strips TEST TWICE DAILY NEEDED active Not Available Not Available No t Available No Drip Nasal Mist 0.05 % active Not Available Not Available Not Available Creon 12,000-38,0 00-60,000 unit capsule,del ayed release TAKE 3 CAPSULE BY MOUTH 3 TIMES A DAY ADMINISTE R WITH MEALS AND/OR SNACKS active Not Available Not Available No t Available Creon 24,000-76,0 00-120,000 unit capsule,del ayed release TAKE 2 CAPSULES BY MOUTH 3 TIMES DAILY WITH MEALS AND/OR SNACKS active Not Available Not Available No t Available Solu-Cortef Act-O-Vial (PF) 100 mg/2 mL solution for injection INJECT 2ML INTRAMUSC ULARLY ONCE *NOT CVD PER INS* active Not Available Not Available No t Available [facility] spacer active Not Available Not Available Not Available Spiriva Respimat 2.5 mcg/actuati on solution for inhalation active Not Available Not Available N ot Available Spiriva Respimat 1.25 mcg/actuati on solution for inhalation INHALE 2 PUFFS BY MOUTH EVERY DAY active Not Available Not Available No t Available OneTouch Ultra Blue Test Strip USE TO CHECK GLUCOSE TWICE DAILY DX E11.9 active Not Available Not Available No t Available OneTouch Ultra2 Meter USE TO CHECK GLUCOSE TWICE DAILY DX E11.9 active Not Available Not Available No t Available Vitals Date Recorded Body temperature Respiratory rate Oxygen saturation Oxygen saturation in Arterial blood by Pulse oximetry Heart rate Systolic And Diastolic Provider Name and Address Organization Details Last Updated DateTime 0 96.7 [degF] 16 /min 100 % 100 % 80 /min 100/60 mm[Hg] Not Available [facility] 0 18:35:07 Social History None recorded. Functional Status None recorded. Mental Status None recorded. Family History Nothing Reported. Medical History Condition Response Diabetes N Coronary Artery Disease N High Cholesterol N Pulmonary Embolism N Cancer N Hypertension N Stroke N COPD N Depression N Asthma Y Kidney Disease N Gynecological HistoryNo gynecological history recorded. Obstetrics History GPAL:G 0 P 0 0 0 0 Past Encounters Encounter ID Performer Location Encounter Start Date Encounter Closed Date Diagnosis/Indication Diagnosis SNOMED-CT Code Diagnosis ICD10 Code Diagnosis IMO Codes Diagnosis Note [id number] SIA HERNANDEZ NP [facility] [address] [facility] [place] [address] 01/21/2020 18:32:01 01/22/2020 16:23:31 Low back pain 054884125 M54.5 Sciatica 80041145 M54.30 Fibromyalgia 998256735 M 79.7 Health Concerns Section Related Observation LastModified by Organization Detai ls LastModified Time None Recorded Concern Status LastModified by Organization Details LastModified Time None Recorded Advance Directives Directive None Recorded Payers Insurance Date Sequence Insurance Name Policy Number Policy [place] Covered Member ID [place] Member ID Guarantor Name 04/02/2020 2 UNSPECIFIED REMIT PAYOR Birdie Chimi 01/12/2020 1 *SELF PAY* Birdie Chimi [id number] Birdie Chimi 01/12/2020 1 [facility] MEDICARE ADVANTAGE PLAN (MEDICARE REPLACEMENT HMO) Birdie Chimi [id number] Birdie Chimi 01/12/2020 1 [facility] Birdie Chimi [id number] Birdie Chimi 01/21/2020 1 [facility] - MEDICARE ADVANTAGE PLAN (MEDICARE REPLACEMENT HMO) Birdie Chimi [id number] Birdie Chimi 01/21/2020 2 [facility] - PREFERRED (MEDICARE SUPPLEMENT) [id number] Birdie Chimi [id number] Birdie Chimi 01/21/2020 1 [place] [employer] Birdie Chimi [id number] Birdie Chimi 01/21/2020 2 [facility] HEALTH PLAN - PREFERRED (MEDICARE SUPPLEMENT) [id number] Birdie Chimi [id number] Birdie Chimi 01/24/2020 1 [place] [employer] SERVICES Birdie Hall [id number] Birdie Hall Notes Date Note Type Note Provider Name and Address Organization Details Recorded Time 01/21/2020 text/html General HPI Temp late - DHReported by Patient This is a 49-year-old female that is a new patient [facility]. She has a medical history significant for asthma, fibromyalgia, sciatica, depression and anxiety and seasonal allergies. She reports she was diagnosed with osteoarthritis at a young age and has been having back pain since she was 19. She reports that back pain has been getting significantly worse since October of 2019. She reports that every other week she seems to have flare ups. She has been on 3 separate courses of steroids in the past couple of months. She tells me she has been taking Tylenol with little relief. She also had some tramadol left over from an old prescription which she took yesterday with some relief. She is reporting transient episodes of numbness in the interior aspect of her leg, this seems to move. She is 10 saddle numbness or incontinence. She was recently in the emergency department for epistaxis. She also tells me she had a phone visit with her new PCP a couple of weeks ago, she did not mention her back pain to him at that time because it was not bothering her very much that day. SIA HERNANDEZ NP [address], [place], [place], [id number], [place] [facility] 01/21/2020 19:23:29 OBGyn Episode No OBEpisode recorded.
--- OUTSIDE RECORDS SUMMARY | 2025-06-13 15:29 | XMS_ITS | Encounter Summary ---
Author Organization [facility] Address [address] [place] [phone] Phone Care Team Providers Care Custom Bike Builder Name Role Phone Vinay Albarado MD Unavailable Juju Rojas RACKING TECHNICIAN Unavailable [phone] Shanell Patino MD Unavailable Natalie Medrano RACKING TECHNICIAN Primary Care Provider + Natalie Medrano NP Primary Care Provider + Torsten Causey MD Primary Care Provider Deepthi Stone MD Primary Care Provide r Encounter Details Date Type Department Care Team (Late st Contact Info) Description 08/31/2019 Procedure Pass OR Admitting Dept - Virtual Department [address] [place] [phone] Social History Tobacco Use Types Packs/Day Years [...] on filedocumented in this encounter Care Teams Custom Bike Builder Relationship Specialty Start Date End Date Natalie Medrano NP [address] [place] [phone] PCP - General Family Medicine 06/21/19 11/04/19 Natalie Medrano NP [address] [phone] PCP - General Family Medicine 11/21/19 02/21/20 Torsten Causey MD [address] [place] [phone] PCP - General 02/22/20 08/18/22 Deepthi Stone MD [address] [place] [phone] PCP - General Internal Medicine 08/19/22 [place] [address] [email or web address] Historical LMR Provider 06/04/17 08/22/21 Juju Rojas NP [address] [place] [phone] Historical LMR Provider 06/04/17 08/22/21 Shanell Patino MD [address] [place] [address] Orthopedics & Sports Medicine, [facility] [place] [address] Historical LMR Provider 06/04/17 documented as of this encounter Additional Source Comments The information contained in this document represents components of the legal health record. It is not the complete legal health record.[facility]
[2025-06-26 01:09] LABS: Lactoferrin, Fecal, Quant. 10.95 mcg/mL (<7.25)
== END 2025-06-13 12:37 | disposition home or self-care (01) ==
LOC: HO.LNP 12:36
PROVIDERS: Visit Provider Internal Medicine Gastroenterology
DX: K51.50 Left sided colitis without complications (principal); K52.9 Noninfective gastroenteritis and colitis, unspecified
CPT/HCPCS: 83631; 87493; 87507